=== PATIENT | male | born 1945 | race Caucasian/White ===

== ENCOUNTER → 2017-10-13 | Outpatient (CLI) | payer MEDICARE, MEDICAID ==
[~2017-10-13] MED LIST: AMLO5TAB2 PO; CLPD75T PO; EXEN10PE4 SQ; FURO20TA4 PO; GABA800T2 PO; LISI1TAB PO; LORA5SOL51 PO; MTF500T PO; PARO20TA57 PO; RT-COMBINH IH; SIMV40TA4 PO; SITA100T PO
--- NOTE | 2017-10-13 11:12 | Diagnostic Imaging Report ---
PROCEDURE: CT abdomen and pelvis without contrast. TECHNIQUE: Multiple contiguous axial images were obtained through the abdomen and pelvis without the use of intravenous contrast. INDICATION: Vomiting blood. COMPARISON: No prior studies are available for comparison. FINDINGS: Imaging through the lung bases does show marked coronary arterial calcifications. There is a cardiac pacemaker in place. A small right pleural effusion is noted. There are also abnormal bibasilar parenchymal densities, suggestive of mild pneumonia or atelectasis. No discrete liver mass is identified. The gallbladder is mildly distended. There are small stones layering within the gallbladder. No definite biliary ductal dilatation is seen. The pancreas and spleen are unremarkable. The right adrenal gland is unremarkable. There is a nodule involving the lateral limb of the left adrenal gland measuring 17 mm in size. Both kidneys do contain low-density masses. The largest is in the lower pole of the right kidney measuring 5.6 cm in AP diameter. Largest low-density mass on the left is in the upper pole measuring 2.3 cm in size. No calculi or hydronephrosis is identified. The aorta is heavily calcified but nonaneurysmal. The bladder is decompressed by Cervantes catheter. There is a large amount of stool within the rectum and sigmoid colon. Moderate distention of the sigmoid is identified. There is questionable wall thickening versus incomplete distention of the proximal ascending colon. There are some gaseous-distended small bowel loops in the central abdomen anteriorly. There is transition with normal-caliber small bowel loops distally. No free fluid or fluid collection is identified. There is no pneumoperitoneum. Imaging through the pelvis does show a decubitus ulcer in the midline just inferior to the coccyx. There is infiltration of the fat immediately posterior to the rectum. No definite sacral or coccygeal bony destructive changes are seen. There is soft tissue thickening superficial to the lower sacrum and coccyx. No fluid collection or abscess is identified. IMPRESSION: 1. Small right pleural effusion with bibasilar infiltrates or atelectasis. 2. Cholelithiasis. 3. Bilateral renal cysts. 4. Left adrenal nodule, indeterminate. Followup CT to confirm stability is recommended. 5. A large amount of stool in the rectum and distal colon, suggestive of constipation. 6. There is moderate gaseous distention of small bowel loops in the central abdomen with focal transition. Small bowel obstruction cannot be entirely excluded. Small bowel follow-through study may be useful for further evaluation. 7. Sacral decubitus ulcer without evidence of abscess formation. Dictated by: Dictated on workstation # [id number]
== END ==
LOC: RAD 09:46
PROVIDERS: ATTEND Registered Nurse
DX: J90 Pleural effusion, not elsewhere classified (principal); K80.20 Calculus of gallbladder without cholecystitis without obstruction; N28.1 Cyst of kidney, acquired; E27.8 Other specified disorders of adrenal gland; R14.0 Abdominal distension (gaseous); L89.159 Pressure ulcer of sacral region, unspecified stage; R33.9 Retention of urine, unspecified
CPT/HCPCS: 74176

== ENCOUNTER 2017-11-18 07:48 | Inpatient (IN) | payer MEDICARE, MEDICAID ==
[2017-11-18] VITALS (18 sets, daily range): BP systolic 100–155; BP diastolic 40–69
[~2017-11-18] VITALS: Ht 195.6 cm; Wt 105.5 kg
--- OUTSIDE RECORDS SUMMARY | 2017-11-18 07:52 | XMS REPORT | CCD ---
Author Author CHRISTIANO MCNEAL Organization Unknown Address [address] [facility] [address] [place], [place] [id number] Care Team Providers Care Geothermal Operations Manager Name Role Phone JULIENNE OBRIEN, W ARABELLA Attphys Vital Signs Unknown or Not Available. Allergies Allergy Code Allergy Type Reaction Status PCN (penicillin) 0 Drug allergy Active Procedures Procedure Code Procedure Type Date Removal of permanent pacemaker pulse generator with replacement of pacemak 66427 CPT 08/17/2015 BEDSIDE GLUCOSE 12596572 SNOMED CT 08/17/2015 History of Immunizations Unknown or Not Available. Problems Problem Code Start Date Resolved Date Status CELLULITIS 181176009 05/26/2014 Active Results BEDSIDE GLUCOSE - Collect Date/Time: 08/17/2015 13:25 Test Name Code Test Result Test Units Test Ref Range GLUCOSE POCT 128 MG/DL L=70 H=100 Active Medications Medication Code Dose Units Frequency Route Modification Start Date/Time DOXYCYCLINE [VIBRAMYCIN] CAPSULE:100MG 2781518 100 MG X1 PO 08/17/2015 15:43 Medications Administered During Visit Unknown or Not Available. Encounters Encounter Diagnosis Diagnosis Code Start Date Encounter for checking and testing of cardiac pacemaker pulse generator [ battery] [id number] 08/17/2015 Social History Smoking Status Code Start Date End Date Current every day smoker [id number] Patient Decision Aids Patient Decision Aid PACEMAKER AND/OR CARDIO-DEFIBRILLATOR INSERTION; AFTER THE PROC Discharge Instructions You were admitted to [facility] on 08/17/2015 with a principal diagnosis of Encounter for checking and testing of cardiac pacemaker pulse generator [battery]. You had the following procedures done: REMV&REPLC PM GEN DUAL LEAD You were discharged from [facility] on 08/17/2015. Should you have any questions prior to discharge, please contact a member of your healthcare team. If you have left the hospital and have any questions, please contact your primary care physician. Chief Complaint and Reason For Visit Chief Complaint Date of Onset PACEMAKER BATTERY CHANGE Function Status Unknown or Not Available. Plan of Care Unknown or Not Available. Referral/Transition of Care Unknown or Not Available.
--- OUTSIDE RECORDS SUMMARY | 2017-11-18 07:53 | XMS REPORT ---
Author Author Elder Jane Organization [facility] Address [address] [facility] [address] [place], [place] [id number] Care Team Providers Care Cigar Maker Name Role Phone Elder Jane PCP Unavailable Allergies and Adverse Reactions Name Reaction Notes PENICILLINS Plan of Treatment Not available. Medications Active Name Start Date Estimated Completion Date SIG Comments Byetta Subcutaneous Pen Injector 5 mcg/0.02 mL inject 0.02 milliliter ( 5 mcg) by subcutaneous route 2 times per day before morning and evening meals Januvia Oral Tablet 100 mg take 1 tablet (100 mg) by oral route once daily Paroxetine HCl Oral Tablet 20 mg take 1 tablet (20 mg) by oral route once daily Combivent Inhalation Aerosol 18-103 mcg/Actuation inhale 2 puffs by inhalation route 4 times per day amlodipine 10 mg oral tablet take 1 tablet (10 mg) by oral route once daily Flonase Allergy Relief 50 mcg/actuation nasal spray,suspension spray 1 spray (50 mcg) in each nostril by intranasal route once daily Zyrtec 10 mg oral tablet take 1 tablet (10 mg) by oral route once daily gabapentin 100 mg oral capsule take 1 capsule by oral route 3 times a day glipizide 5 mg oral tablet take 1 tablet (5 mg) by oral route 2 times per day before meals simvastatin 40 mg oral tablet take 1 tablet (40 mg) by oral route once daily in the evening [place] 7.5-325 mg oral tablet take 1 tablet by oral route every 4 hours as needed for pain lisinopril-hydrochlorothiazide 10-12.5 mg oral tablet take 1 tablet by oral route once daily Name Start Date Expiration Date SIG Comments Gabapentin Oral Tablet 800 mg take 1 tablet (800 mg) by oral route 3 times per day Glyburide-Metformin Oral Tablet 5-500 mg take 2 tablets by oral route 2 times per day with meals Avandia Oral Tablet 4 mg take 1 tablet (4 mg) by oral route once daily Vytorin 10-40 Oral Tablet mg take 1 tablet by oral route once daily Plavix Oral Tablet 75 mg take 1 tablet (75 mg) by oral route once daily Lisinopril-Hydrochlorothiazide Oral Tablet 20-12.5 mg take 1 tablet by oral route once daily Ranitidine HCl Oral Capsule 300 mg take 1 capsule by oral route daily Amlodipine Oral Tablet 5 mg take 1 tablet (5 mg) by oral route once daily Problem List Description Status Onset Dyspepsia Active 12/29/2016 Colon cancer screening Active 12/29/2016 Rectus diastasis Active 12/29/2016 Ventral hernia Active 12/29/2016 Vital Signs Date Time BP-Sys(mm[Hg] BP-Lima(mm[Hg]) HR(bpm) RR(rpm) Temp WT HT HC BMI BSA BMI Percentile O2 Sat(%) 12/28/2016 1:33:00 PM 138 mmHg 67 mmHg 69 bpm 18 rpm 96.2 F 233 lbs 77 in 27.63 kg/m2 2.40 m2 06/16/2010 4:39:00 PM 144 mmHg 72 mmHg 64 bpm 16 rpm 98.7 F 256 lbs Social History Name Description Comments Alcohol Former used to drink liquor and beer daily, Quit August 14, 1978 Lives with friend girlfriend in a trailer Living with significant other x 5 years,pt has grown children GED Cigarette smoking Current - status unknown x 60 years 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 Results Summary Not available. History Of Immunizations Not available. History of Past Illness Name Date of Onset Comments acid reflux Back Pain Chronic kidney disease, unspecified Coronary Artery Disease depression Diabetes Mellitus, Type II With Neurological Manifestations, not stated as uncontrolled Chronic Obstructive Pulmonary Disease Hypertension Hypercholesterolemia Neuropathy Spondylosis, lumbar Jun 16 2010 4:39PM Spinal stenosis, lumbar region Jun 16 2010 4:39PM Muscle Spasm Jun 16 2010 4:39PM Ulcer, Chronic Right calf Peptic Ulcer Disease, Personal History of IBS (irritable bowel syndrome) Dyspepsia 12/29/2016 Colon cancer screening 12/29/2016 Rectus diastasis 12/29/2016 Ventral hernia 12/29/2016 Colon cancer screening Dec 28 2016 1:51PM Dyspepsia Dec 28 2016 1:51PM Rectus diastasis Dec 28 2016 1:51PM Ventral hernia Dec 28 2016 1:51PM Payers Insurance Name Company Name Plan Name Plan Number Policy Number Policy Group Number Start Date Medicare Part B Medicare Of [place] [id number] Thursday, 2005 [facility] [id number] N/A [place] Medical Assistance [facility] Medical Assistance Pro [id number] N/A History of Encounters Visit Date Visit Type Provider 12/28/2016 Office visit Elder Jane DO 11/07/2014 [facility] Magdy Harris MD 06/03/2014 [facility] Carlie Vasques MD 05/28/2014 [facility] Elder Jane DO 05/27/2014 [facility] Elder Jane DO 05/26/2014 [facility] Magdy Harris MD 06/24/2010 [facility] Feng Mims MD 06/16/2010 Office visit Feng Mims MD
--- OUTSIDE RECORDS SUMMARY | 2017-11-18 07:53 | XMS REPORT | Continuity of Care Document ---
Author Author [facility] Organization [facility] Address Unknown Phone Unavailable Allergies Active Description Code Type Severity Reaction Onset Reported/Identified Relationship to Patient Clinical Status Yes PCN (penicillin) [id number] CLASS N/A N/A Yes penicillins 3 Drug N/A N/A Yes Penicillins [id number] Drug Allergy Unknown N/A 05/11/2012 Medications There is no data. Problems Date Dx Coded Attending Type Code Diagnosis Diagnosed By 07/13/1204 Ot 250.00 DIAB CARRINGTON WO COMPL, TYPE II OR UNSPEC TY 07/13/1204 Ot 707.15 ULCER OF OTHER PART OF FOOT 06/15/2012 Ot 250.00 DIAB CARRINGTON WO COMPL, TYPE II OR UNSPEC TY 06/15/2012 Ot 707.15 ULCER OF OTHER PART OF FOOT 06/24/2012 Ot 876.0 OPEN WOUND OF BACK 06/24/2012 Ot E000.8 OTHER EXTERNAL CAUSE STATUS 06/24/2012 Ot E928.9 ACCIDENT NOS 06/24/2012 Ot V58.30 ENCOUNTER FOR CHANGE OR REMOVAL OF NONSU 07/18/2012 Ot 876.0 OPEN WOUND OF BACK 07/18/2012 Ot E000.8 OTHER EXTERNAL CAUSE STATUS 07/18/2012 Ot E928.9 ACCIDENT NOS 07/18/2012 Ot V58.30 ENCOUNTER FOR CHANGE OR REMOVAL OF NONSU 06/28/2016 N18.4 Chronic kidney disease, stage 4 (severe) ALEXUS LAURA I 07/27/2017 S E68244 Nicotine dependence, cigarettes, with other nicotine-induced disorders 07/27/2017 S O22456 Chronic venous hypertension (idiopathic) with ulcer of bilateral lower extremity 07/27/2017 P O06704 Pressure ulcer of sacral region, stage 4 07/27/2017 S O60875 Pressure ulcer of other site, stage 2 07/27/2017 S Y72992 Non-pressure chronic ulcer of right ankle with fat layer exposed 10/17/2017 ALISIA FERNANDEZ MARKETING FINANCIAL ANALYST Ot E27.8 OTHER SPECIFIED DISORDERS OF ADRENAL GLA 10/17/2017 ALISIA FERNANDEZ MARKETING FINANCIAL ANALYST Ot J90 PLEURAL EFFUSION, NOT ELSEWHERE CLASSIFI 10/17/2017 ALISIA FERNANDEZ MARKETING FINANCIAL ANALYST Ot K80.20 CALCULUS OF GALLBLADDER W/O CHOLECYSTITI 10/17/2017 ALISIA FERNANDEZ MARKETING FINANCIAL ANALYST Ot L89.159 PRESSURE ULCER OF SACRAL REGION, UNSPECI 10/17/2017 ALISIA FERNANDEZ MARKETING FINANCIAL ANALYST Ot N28.1 CYST OF KIDNEY, ACQUIRED 10/17/2017 ALISIA FERNANDEZ MARKETING FINANCIAL ANALYST Ot R14.0 ABDOMINAL DISTENSION (GASEOUS) 10/17/2017 ALISIA FERNANDEZ MARKETING FINANCIAL ANALYST Ot R33.9 RETENTION OF URINE, UNSPECIFIED 11/03/2017 ALISIA FERNANDEZ MARKETING FINANCIAL ANALYST Ot E27.8 OTHER SPECIFIED DISORDERS OF ADRENAL GLA 11/03/2017 ALISIA FERNANDEZ MARKETING FINANCIAL ANALYST Ot J90 PLEURAL EFFUSION, NOT ELSEWHERE CLASSIFI 11/03/2017 ALISIA FERNANDEZ MARKETING FINANCIAL ANALYST Ot K80.20 CALCULUS OF GALLBLADDER W/O CHOLECYSTITI 11/03/2017 ALISIA FERNANDEZ MARKETING FINANCIAL ANALYST Ot L89.159 PRESSURE ULCER OF SACRAL REGION, UNSPECI 11/03/2017 ALISIA FERNANDEZ MARKETING FINANCIAL ANALYST Ot N28.1 CYST OF KIDNEY, ACQUIRED 11/03/2017 ALISIA FERNANDEZ MARKETING FINANCIAL ANALYST Ot R14.0 ABDOMINAL DISTENSION (GASEOUS) 11/03/2017 ALISIA FERNANDEZ MARKETING FINANCIAL ANALYST Ot R33.9 RETENTION OF URINE, UNSPECIFIED 11/15/2017 ALISIA FERNANDEZ MARKETING FINANCIAL ANALYST Ot E27.8 OTHER SPECIFIED DISORDERS OF ADRENAL GLA 11/15/2017 ALISIA FERNANDEZ MARKETING FINANCIAL ANALYST Ot J90 PLEURAL EFFUSION, NOT ELSEWHERE CLASSIFI 11/15/2017 ALISIA FERNANDEZ MARKETING FINANCIAL ANALYST Ot K80.20 CALCULUS OF GALLBLADDER W/O CHOLECYSTITI 11/15/2017 ALISIA FERNANDEZ MARKETING FINANCIAL ANALYST Ot L89.159 PRESSURE ULCER OF SACRAL REGION, UNSPECI 11/15/2017 ALISIA FERNANDEZ MARKETING FINANCIAL ANALYST Ot N28.1 CYST OF KIDNEY, ACQUIRED 11/15/2017 ALISIA FERNANDEZ MARKETING FINANCIAL ANALYST Ot R14.0 ABDOMINAL DISTENSION (GASEOUS) 11/15/2017 ALISIA FERNANDEZ MARKETING FINANCIAL ANALYST Ot R33.9 RETENTION OF URINE, UNSPECIFIED Procedures Code [place] [address] Office or other outpatient visit for the evaluation and management of a new patient, which requires ALEXUS LAURA I 06/28/2016 Results There is no data. Encounters ACCT No. Visit Date/Time Discharge Status Pt. Type Provider Facility Loc./Unit Complaint [id number] 06/22/2017 09:39:07 06/22/2017 23:59:59 CLS Outpatient Magdy Harris [id number] 12/28/2016 11:03:17 12/28/2016 23:59:59 CLS Outpatient Elder Jane [id number] 03/23/2015 22:06:00 03/23/2015 23:59:59 CLS Outpatient Magdy Harris [id number] 08/17/2014 18:33:51 08/17/2014 23:59:59 CLS Outpatient Magdy Harris [id number] 06/16/2014 12:15:27 06/16/2014 23:59:59 CLS Outpatient Carlie Vasques [id number] 06/16/2014 12:05:57 06/16/2014 23:59:59 CLS Outpatient Elder Jane [id number] 05/28/2014 10:15:40 05/28/2014 23:59:59 CLS Outpatient Elder Jane [id number] 10/13/2017 09:46:00 10/13/2017 23:59:59 CLS Outpatient ALISIA FERNANDEZ APRN [facility] RAD 6 MO F/U [id number] 11/18/2017 07:49:00 ACT Emergency YOLA ZAMORA MD [facility] ER RESPIRATORY FAILURE [id number] 07/18/2012 10:30:00 Document Registration [id number] 06/22/2012 11:55:00 Document Registration [id number] 06/15/2012 11:45:00 Document Registration [id number] 11/15/2017 08:47:22 Document Registration [id number] 11/08/2017 10:05:20 Document Registration [id number] 10/31/2017 08:43:38 Document Registration [id number] 10/17/2017 09:03:12 Document Registration [id number] 10/02/2017 09:40:16 Document Registration [id number] 09/25/2017 09:30:30 Document Registration [id number] 09/19/2017 09:06:04 Document Registration [id number] 09/11/2017 09:21:03 Document Registration [id number] 08/29/2017 10:32:35 Document Registration [id number] 08/21/2017 09:32:38 Document Registration [id number] 08/10/2017 10:19:01 Document Registration [id number] 08/08/2017 11:18:21 Document Registration [id number] 07/26/2017 08:57:43 Document Registration [id number] 07/17/2017 10:14:40 Document Registration [id number] 06/29/2017 15:08:16 Document Registration [id number] 06/29/2017 15:02:40 Document Registration [id number] 06/15/2017 11:41:11 Document Registration [id number] 06/09/2017 10:32:42 Document Registration [id number] 06/07/2017 08:50:33 Document Registration [id number] 06/01/2017 11:51:47 Document Registration [id number] 05/25/2017 10:57:54 Document Registration [id number] 05/24/2017 09:13:38 Document Registration [id number] 05/18/2017 11:10:48 Document Registration [id number] 05/16/2017 09:04:49 Document Registration [id number] 05/11/2017 08:52:19 Document Registration [id number] 04/16/2017 09:58:17 Document Registration [id number] 04/10/2017 21:33:41 Document Registration [id number] 04/10/2017 11:48:56 Document Registration [id number] 04/06/2017 09:05:08 Document Registration [id number] 04/04/2017 22:41:46 Document Registration [id number] 03/30/2017 19:13:52 Document Registration [id number] 03/30/2017 19:03:38 Document Registration [id number] 03/30/2017 18:54:41 Document Registration [id number] 03/30/2017 18:54:40 Document Registration [id number] 03/30/2017 18:54:39 Document Registration [id number] 03/30/2017 18:54:32 Document Registration [id number] 03/30/2017 10:31:21 Document Registration [id number] 06/23/2016 08:18:15 Document Registration [id number] 10/24/2017 11:16:01 10/24/2017 23:59:59 DIS Outpatient JIM ALISIA D [facility] [id number] 10/24/2017 10:48:40 10/24/2017 23:59:59 DIS Outpatient ALISIA FERNANDEZ [facility] [id number] 07/10/2017 11:37:30 07/10/2017 23:59:59 DIS Outpatient ALISIA FERNANDEZ [facility] [id number] 07/10/2017 10:30:00 07/10/2017 23:59:59 DIS Outpatient ALISIA FERNANDEZ [facility] [id number] 05/08/2017 10:00:00 05/08/2017 23:59:59 DIS Outpatient ALISIA FERNANDEZ [facility] [id number] 04/10/2017 11:21:00 04/10/2017 23:59:59 DIS Outpatient JOSE GOMEZ [facility] [id number] 04/04/2017 10:00:00 04/04/2017 23:59:59 DIS Outpatient [facility] [id number] 03/30/2017 23:00:00 03/30/2017 23:59:59 DIS Outpatient JOSE GOMEZ [facility] [id number] 03/30/2017 13:58:24 03/30/2017 23:59:59 DIS Outpatient ALISIA FERNANDEZ [facility] [id number] 03/30/2017 08:33:09 03/30/2017 23:59:59 DIS Outpatient ALISIA FERNANDEZ [facility] [id number] 03/29/2017 14:43:40 03/29/2017 23:59:59 DIS Outpatient ALISIA FERNANDEZ [facility] [id number] 03/29/2017 14:30:00 03/29/2017 23:59:59 DIS Outpatient ALISIA FERNANDEZ [facility] [id number] 03/28/2017 14:22:51 03/28/2017 23:59:59 DIS Outpatient JIM ALISIA D [facility] [id number] 03/28/2017 14:15:00 03/28/2017 23:59:59 DIS Outpatient ALISIA FERNANDEZ [facility] [id number] 03/24/2017 12:28:31 03/24/2017 23:59:59 DIS Outpatient ALISIA FERNANDEZ [facility] [id number] 03/22/2017 09:09:27 03/22/2017 23:59:59 DIS Outpatient ALISIA FERNANDEZ [facility] [id number] 03/22/2017 09:06:44 03/22/2017 23:59:59 DIS Outpatient ALISIA FERNANDEZ [facility] [id number] 03/21/2017 10:43:28 03/21/2017 23:59:59 DIS Outpatient ALISIA EFRNANDEZ [facility] [id number] 03/13/2017 08:09:54 03/13/2017 23:59:59 DIS Outpatient ALISIA FERNANDEZ [facility] [id number] 03/13/2017 08:05:46 03/13/2017 23:59:59 DIS Outpatient ALISIA FERNANDEZ [facility] [id number] 03/09/2017 14:15:00 03/09/2017 23:59:59 DIS Outpatient ALISIA FERNANDEZ [facility] [id number] 03/08/2017 10:30:00 03/08/2017 23:59:59 DIS Outpatient ALISIA FERNANDEZ [facility] [id number] 05/26/2014 00:00:00 05/26/2014 00:00:00 DIS Outpatient [facility] [id number] 10/13/2017 02:00:47 Document Registration [id number] 03/10/2017 02:00:24 Document Registration [id number] 12/06/2016 08:29:44 Document Registration [id number] 12/05/2016 02:01:42 Document Registration [id number] 12/03/2016 02:04:37 Document Registration [id number] 10/31/2016 09:27:45 Document Registration [id number] 10/28/2016 02:02:07 Document Registration [id number] 10/01/2016 02:01:20 Document Registration [id number] 08/30/2016 09:57:43 Document Registration
[2017-11-18] MEDS ORDERED: RT-IPRATROPIUM (ATROVENT) 0.5MG/2.5ML AMP IH ONE ×2 (07:55→08:00)
[2017-11-18] MEDS ORDERED: RT-ALBUTEROL SULF 2.5 MG/3 ML PRE-MIX VIAL ONE (07:55)
[2017-11-18] MEDS ORDERED: RT-ALBUTEROL SULF 2.5 MG/3 ML PRE-MIX VIAL INH STA (07:57)
[2017-11-18] MEDS ORDERED: methylPREDNISolone 125 MG (Solu-MEDROL) VIAL IVP ONE (08:00)
[2017-11-18 08:09] LABS: BILIRUBIN,URINE NEGATIVE (NEGATIVE); CLARITY,URINE CLEAR; COLOR,URINE YELLOW; GLUCOSE, URINE (UA) NEGATIVE (NEGATIVE); KETONES,URINE NEGATIVE (NEGATIVE); LEUKOCYTE ESTERASE ,URINE 3+ (NEGATIVE); NITRITE,URINE NEGATIVE (NEGATIVE); PH,URINE 6 (5-9); PROTEIN,URINE 3+ (NEGATIVE); UROBILINOGEN,URINE NORMAL (NORMAL)
[2017-11-18 08:09] LABS: BASOPHILS # (AUTO) 0.1 10^3/uL (0.0-0.1); BASOPHILS % (AUTO) 0 % (0-10); EOSINOPHILS # (AUTO) 0.2 10^3/uL (0.0-0.3); EOSINOPHILS % (AUTO) 1 % (0-10); HEMATOCRIT 38 % (40-54); HEMOGLOBIN 12.2 G/DL (13.3-17.7); LYMPHOCYTES # (AUTO) 2.5 X 10^3 (1.0-4.0); LYMPHOCYTES % (AUTO) 15 % (12-44); MEAN CORPUSCULAR HEMOGLOBIN 27 PG (25-34); MEAN CORPUSCULAR HGB CONC 33 G/DL (32-36); MEAN CORPUSCULAR VOLUME 82 FL (80-99); MEAN PLATELET VOLUME 8.6 FL (7.4-10.4); MONOCYTES % (AUTO) 6 % (0-12); NEUTROPHILS # (AUTO) 12.5 X 10^3 (1.8-7.8); NEUTROPHILS % (AUTO) 77 % (42-75); PLATELET COUNT 184 10^3/uL (130-400); RED CELL DISTRIBUTION WIDTH 16.1 % (10.0-14.5); WHITE BLOOD COUNT 16.2 10^3/uL (4.3-11.0)
[2017-11-18] MEDS ORDERED: LEVOFLOXACIN 750 MG/150 ML IV 150 ML IV ONE (08:15)
[2017-11-18 08:20] LABS: BAND NEUTROPHILS 1 %; EOSINOPHILS % (MANUAL) 5 %; LYMPHOCYTES % (MANUAL) 21 %; MONOCYTES % (MANUAL) 9 %; NEUTROPHILS % (MANUAL) 64 %
[2017-11-18 08:21] LABS: RBC MORPH NORMAL
[2017-11-18 08:22] LABS: INR 1.1 (0.8-1.4); PROTHROMBIN TIME PATIENT 14.3 SEC (12.2-14.7)
[2017-11-18 08:24] LABS: BACTERIA,URINE LARGE /HPF; WBC,URINE TNTC /HPF
[2017-11-18 08:28] LABS: ALBUMIN 3.3 GM/DL (3.2-4.5); BILIRUBIN,TOTAL 0.5 MG/DL (0.1-1.0); CALCIUM 8.6 MG/DL (8.5-10.1); CREATININE SERUM 2.36 MG/DL (0.60-1.30); POTASSIUM 4.1 MMOL/L (3.6-5.0); TOTAL PROTEIN 6.8 GM/DL (6.4-8.2)
[2017-11-18] MEDS ORDERED: NS IV 1000 ML 1,000 ML IV ONE (08:30)
--- NOTE | 2017-11-18 08:45 | ED General ---
General Chief Complaint: Respiratory Problems Stated Complaint: RESPIRATORY FAILURE Nursing Triage Note: ARRIVED VIA EMS FROM [facility]. STAFF REPORTS FINDING PT IN SEVERE RESP DISTRESS ET SATS IN THE 60'S WITH 2LNC ON. EMS REPORTS PLACING HIM ON CPAP AND SATS INCREASED TO THE 90'S. BLOOD SUGAR 166 PER EMS. PT ARRIVED WITH C- PAP ON, IV, ET INDWELLING CATH. BOTH LEGS WITH DRESSINGS AND COBAN ET EMS STATES HE HAS ULCERS UNDERNEATH. Nursing Sepsis Screen: No Definite Risk Source of Information: Patient, EMS, [facility] Records, Old Records History of Present Illness Date Seen by Provider: Nov 18, 2017 Time Seen by Provider: 07:49 Initial Comments This 72-year-old gentleman presents to the emergency room in respiratory failure. He was found in respiratory distress this morning at the [facility] with oxygen saturations in the 60s and 70s on nasal cannula. He arrives via EMS. EMS was able to resuscitate his oxygen saturations with CPAP. Patient does have COPD. He continues to smoke. He is dependent on supplemental oxygen. He also is diabetic and paraplegic. He receives wound care for lower extremity ulcers in [place]. He has compressive wrappings on both legs. He is afebrile. He has a documented CODE STATUS of DNR /DNI. He complains of some pain in the suprapubic region. He has an indwelling catheter. He reports having some diarrhea yesterday. Allergies and Home Medications Allergies Coded Allergies: Penicillins (Unverified Allergy, Unknown, 05/11/12) Patient Home Medication List Home Medication List Reviewed: Yes Review of Systems Constitutional: no symptoms reported EENTM: no symptoms reported Respiratory: see HPI Cardiovascular: no symptoms reported Gastrointestinal: see HPI Genitourinary: see HPI Musculoskeletal: see HPI Skin: see HPI Psychiatric/Neurological: See HPI Hematologic/Lymphatic: No Symptoms Reported Immunological/Allergic: no symptoms reported Past Brjficq-Gixsim-Oqigyv Hx Patient Social History Alcohol Use: Denies Use Recreational Drug Use: No Smoking Status: Current Everyday Smoker Recent Foreign Travel: No Contact w/Someone Who Travel: No Recent Infectious Disease Expo: No Past Medical History Surgeries: Yes Amputation (right first and second toe) Respiratory: Yes Pneumonia, COPD Cardiac: Yes Hypertension Neurological: Yes (paraplegia) Genitourinary: Yes (CHRONIC KIDNEY DZ) Renal Failure, UTI-Chronic Gastrointestinal: Yes Chronic Constipation Musculoskeletal: No Endocrine: Yes Diabetes, Insulin dep HEENT: No Cancer: No Psychosocial: No Integumentary: Yes (WOUNDS, bilateral decubitus ulcers of lower extremities) Recent Skin Changes Physical Exam-Suspected Sepsis Physical Exam Vital Signs Vital Signs - First Documented 11/18/17 11/18/17 11/18/17 07:54 08:23 08:47 Temp 96.8 Pulse 87 Resp 16 B/P (MAP) 139/71 (93) Pulse Ox 96 O2 Delivery NIV/CPAP O2 Flow Rate 55.00 FiO2 50 Capillary Refill : Less Than 3 Seconds Blood Pressure Mean: 93 General Appearance: WD/WN, Moderate Distress (respiratory) HEENT: PERRL/EOMI, Normal ENT Inspection Neck: Normal Inspection Respiratory: Accessory Muscle Use, Rhonci (coarse and wet sounding), Other ( increased work of breathing) Cardiovascular: Regular Rate, Rhythm, No Murmur, Other (bilateral lower extremity edema, left greater than right, sinus rhythm on the monitor) Gastrointestinal: Soft, No Distended, Tenderness (suprapubic) Extremity: Pedal Edema, Other (shallow decubitus ulcers on the right lower leg) Neurologic/Psychiatric: Alert, Oriented x3, Normal Mood/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, 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 Norm as Tested, Other (paraplegia from back injury) Skin: normal color, warm/dry Focused Exam Sepsis Stage: Severe Sepsis Possible Source: Genitouriary Lactate Level 11/18/17 07:55: Lactic Acid Level 1.61 Time of Focused Exam: 09:20 Respiratory: No Accessory Muscle Use, Crackles, Rhonci, Wheezing, Other (On BiPAP) Cardiovascular: Regular Rate, Rhythm (heart sounds distant), No Murmur Capillary Refill: Less Than 3 Seconds Skin: normal color, warm/dry Lactic Acid Level Laboratory Tests Test 11/18/17 07:55 Lactic Acid Level 1.61 MMOL/L (0.50-2.00) Progress/Results/Core Measures Suspected Sepsis Recent Fever Within 48 Hours: No Infection Criteria Present: Suspected New Infection New/Unexplained Altered Menta: No Sepsis Screen: No Definite Risk Sepsis Diagnosis: SIRS Temperature:96.8 Pulse: 84 Respiratory Rate: 25 Laboratory Tests 11/18/17 07:55: White Blood Count 16.2H Blood Pressure 139 /71 Mean: 93 11/18/17 07:55: Lactic Acid Level 1.61 Laboratory Tests 11/18/17 07:55: Creatinine 2.36H, INR Comment 1.1, Platelet Count 184, Total Bilirubin 0.5 Results/Orders Lab Results Laboratory Tests Test 11/18/17 07:55 11/18/17 08:00 Range/Units White Blood Count 16.2 H 4.3-11.0 10^3/uL Red Blood Count 4.60 4.35-5.85 10^6/uL Hemoglobin 12.2 L 13.3-17.7 G/DL Hematocrit 38 L 40-54 % Mean Corpuscular Volume 82 80-99 FL Mean Corpuscular Hemoglobin 27 25-34 PG Mean Corpuscular Hemoglobin Concent 33 32-36 G/DL Red Cell Distribution Width 16.1 H 10.0-14.5 % Platelet Count 184 130-400 10^3/uL Mean Platelet Volume 8.6 7.4-10.4 FL Neutrophils (%) (Auto) 77 H 42-75 % Lymphocytes (%) (Auto) 15 12-44 % Monocytes (%) (Auto) 6 0-12 % Eosinophils (%) (Auto) 1 0-10 % Basophils (%) (Auto) 0 0-10 % Neutrophils # (Auto) 12.5 H 1.8-7.8 X 10^3 Lymphocytes # (Auto) 2.5 1.0-4.0 X 10^3 Monocytes # (Auto) 1.0 0.0-1.0 X 10^3 Eosinophils # (Auto) 0.2 0.0-0.3 10^3/uL Basophils # (Auto) 0.1 0.0-0.1 10^3/uL Neutrophils % (Manual) 64 % Lymphocytes % (Manual) 21 % Monocytes % (Manual) 9 % Eosinophils % (Manual) 5 % Band Neutrophils 1 % Blood Morphology Comment NORMAL Prothrombin Time 14.3 12.2-14.7 SEC INR Comment 1.1 0.8-1.4 Activated Partial Thromboplast Time 33 24-35 SEC Sodium Level 139 135-145 MMOL/L Potassium Level 4.1 3.6-5.0 MMOL/L Chloride Level 105 98-107 MMOL/L Carbon Dioxide Level 23 21-32 MMOL/L Anion Gap 11 5-14 MMOL/L Blood Urea Nitrogen 40 H 7-18 MG/DL Creatinine 2.36 H 0.60-1.30 MG/DL Estimat Glomerular Filtration Rate 27 BUN/Creatinine Ratio 17 Glucose Level 178 H 70-105 MG/DL Lactic Acid Level 1.61 0.50-2.00 MMOL/L Calcium Level 8.6 8.5-10.1 MG/DL Total Bilirubin 0.5 0.1-1.0 MG/DL Aspartate Amino Transf (AST/SGOT) 11 5-34 U/L Alanine Aminotransferase (ALT/SGPT) 7 0-55 U/L Alkaline Phosphatase 65 40-136 U/L C-Reactive Protein High Sensitivity 3.74 H 0.00-0.50 MG/DL B-Type Natriuretic Peptide 1001.0 H <100.0 PG/ML Total Protein 6.8 6.4-8.2 GM/DL Albumin 3.3 3.2-4.5 GM/DL Urine Color YELLOW Urine Clarity CLEAR Urine pH 6 5-9 Urine Specific Trout 1.015 L 1.016-1.022 Urine Protein 3+ H NEGATIVE Urine Glucose (UA) NEGATIVE NEGATIVE Urine Ketones NEGATIVE NEGATIVE Urine Nitrite NEGATIVE NEGATIVE Urine Bilirubin NEGATIVE NEGATIVE Urine Urobilinogen NORMAL NORMAL MG/DL Urine Leukocyte Esterase 3+ H NEGATIVE Urine RBC (Auto) 3+ H NEGATIVE Urine RBC NONE /HPF Urine WBC TNTC H /HPF Urine Crystals NONE /LPF Urine Bacteria LARGE H /HPF Urine Casts NONE /LPF Urine Mucus NEGATIVE /LPF Urine Culture Indicated YES Micro Results Microbiology 11/18/17 Influenza Types A,B Antigen (TIAGO) - Final, Complete My Orders Orders - YOLA ZAMORA MD Albuterol Pre-Mix Nebs (Rt) (Proventil (11/18/17 07:57) Ipratropium 0.02% Neb Solution (Atrovent (11/18/17 08:00) Svn Sm Volume Nebulizer Rt-Rfs (11/18/17 07:57) Svn Sm Volume Nebulizer Rt-Rfs (11/18/17 07:57) Cbc With Automated Diff (11/18/17 07:58) Comprehensive Metabolic Panel (11/18/17 07:58) Lactic Acid Analyzer (11/18/17 07:58) Blood Culture (11/18/17 07:58) Sputum Culture (11/18/17 07:58) Ua Culture If Indicated (11/18/17 07:58) Protime With Inr (11/18/17 07:58) Partial Thromboplastin Time (11/18/17 07:58) Chest 1 View, Ap/Pa Only (11/18/17 07:58) O2 (11/18/17 07:58) Saline Lock/Iv-Start (11/18/17 07:58) Saline Lock/Iv-Start (11/18/17 07:58) Vital Signs Adult Sepsis Patie Q1H (11/18/17 07:58) Remove Rings In Anticipation O (11/18/17 07:58) Influenza A And B Antigens (11/18/17 07:58) BNP (11/18/17 07:58) Hs C Reactive Protein (11/18/17 07:58) Methylprednisolone Sod Succ (Solu-Medrol (11/18/17 08:00) Ipratropium 0.02% Neb Solution (Atrovent (11/18/17 07:55) Albuterol Pre-Mix Nebs (Rt) (Proventil (11/18/17 07:55) Manual Differential (11/18/17 07:55) Levofloxacin 750 Mg/150 Ml Iv (Levaquin (11/18/17 08:15) Urine Culture (11/18/17 08:00) Wound Culture (11/18/17 08:25) Saline Lock/Iv-Start (11/18/17 08:30) Ns Iv 1000 Ml (Sodium Chloride 0.9%) (11/18/17 08:30) Medications Given in ED Current Medications Medications Dose Ordered Sig/Wendy Route Start Time Stop Time Status Last Admin Dose Admin Ipratropium Eastern 0.5 mg ONCE ONCE IH 11/18/17 08:00 11/18/17 08:01 DC 11/18/17 08:12 0.5 MG Levofloxacin/ Dextrose 150 ml @ 100 mls/hr ONCE ONCE IV 11/18/17 08:15 11/18/17 09:44 DC 11/18/17 08:32 100 MLS/HR Methylprednisolone Sodium Succinate 125 mg ONCE ONCE IVP 11/18/17 08:00 11/18/17 08:01 DC 11/18/17 08:31 125 MG Sodium Chloride 1,000 ml @ 0 mls/hr Q0M ONCE IV 11/18/17 08:30 11/18/17 08:31 DC 11/18/17 08:35 1,000 MLS/HR Vital Signs/I&O 11/18/17 11/18/17 11/18/17 11/18/17 07:54 08:13 08:23 08:47 Temp 96.8 Pulse 87 84 Resp 16 25 B/P (MAP) 139/71 (93) Pulse Ox 96 91 89 O2 Delivery NIV/CPAP O2 Flow Rate 55.00 FiO2 50 11/18/17 08:48 Pulse Ox 91 O2 Flow Rate 60.00 Capillary Refill : Less Than 3 Seconds Blood Pressure Mean: 93 Progress Note : Time: 09:08 Progress Note Sepsis workup was pursued. Patient was continued on BiPAP and settings were adjusted as needed. Solu-Medrol 125 mg IV was administered. Blood cultures and lactic acid were drawn. Levaquin was started as initial antibiotic therapy. Patient was found to have probable pneumonia as well as urinary tract infection. He has renal failure of unknown chronicity. No prior labs are available for comparison and no prior x-ray for comparison. Patient meets severe sepsis criteria because of his respiratory and renal failure. However, he is not hypotensive. Because of borderline vascular congestion on the chest x -ray and elevated BNP, only 1 L of IV fluids was administered in the ER. Further fluid administration will be based on attendings assessment. For patient's ideal body weight 2 L would equal 30 ML per kilogram. The severe sepsis order set will be used for admission. Antibiotic selection will be adjusted based on a penicillin allergy. Meropenem will be substituted for cefepime. Lower extremity dressings were left off for ICU assessment. Influenza screen was negative. Case was reviewed with Dr. Lord who agrees with plan. I did make patient aware that he is extremely ill. I offered to call friends or family for him but he declined. Diagnostic Imaging Diagonstic Imaging: Xray Plain Films/CT/US/NM/MRI: chest Comments Chest x-ray reviewed by me and report reviewed. See report below: NAME: LORENZO ARREDONDO MED REC#: [id number] PT STATUS: REG ER : 1945 PHYSICIAN: YOLA ZAMORA MD ADMIT DATE: 11/18/17/ER Draft Date of Exam:11/18/17 CHEST 1 VIEW, AP/PA ONLY INDICATION: Respiratory distress. TECHNIQUE: Single view chest 8:25 AM. CORRELATION STUDY: None FINDINGS: Right-sided pacemaker stable. Heart size borderline enlarged. Vasculature is increased. There are coarse bilateral pulmonary lung markings. IMPRESSION: 1. Cardiac enlargement with borderline vascular congestion. 2. Scattered pulmonary parenchymal densities are noted. It is indeterminate whether some of these are chronic versus more superimposed areas of infiltrate and/or edema. Would recommend short-term followup two-view chest imaging for reassessment. Dictated on workstation # [id number] Dict: 11/18/17 0839 Trans: 11/18/17 0849 [facility] [id number] Interpreted by: RAHUL DIEGO DO Departure Communication (Admissions) Time/Spoke to Admitting Phy: 09:00 Dr. Lord Impression Primary Impression: Severe sepsis Additional Impressions: Respiratory failure Qualified Codes: J96.01 - Acute respiratory failure with hypoxia Pneumonia Qualified Codes: J18.9 - Pneumonia, unspecified organism Urinary tract infection Qualified Codes: N39.0 - Urinary tract infection, site not specified Renal failure Qualified Codes: N19 - Unspecified kidney failure Decubitus ulcer of right leg COPD exacerbation Disposition: ADMITTED INPATIENT Condition: Improved Admissions Decision to Admit Reason: Admit from ER (General) Decision to Admit/Date: Nov 18, 2017 Time/Decision to Admit Time: 07:50 Departure-Patient Inst. Referrals: ANDREW NICHOLAS DO (PCP/Family) Primary Care Physician YOLA ZAMORA MD Nov 18, 2017 08:45
--- NOTE | 2017-11-18 08:50 | Diagnostic Imaging Report ---
INDICATION: Respiratory distress. TECHNIQUE: Single view chest 8:25 AM. CORRELATION STUDY: None FINDINGS: Right-sided pacemaker stable. Heart size borderline enlarged. Vasculature is increased. There are coarse bilateral pulmonary lung markings. IMPRESSION: 1. Cardiac enlargement with borderline vascular congestion. 2. Scattered pulmonary parenchymal densities are noted. It is indeterminate whether some of these are chronic versus more superimposed areas of infiltrate and/or edema. Would recommend short-term followup two-view chest imaging for reassessment. Dictated by: Dictated on workstation # [id number]
--- OUTSIDE RECORDS SUMMARY | 2017-11-18 09:20 | XMS REPORT | Continuity of Care Document ---
Author Author [facility] Organization [facility] Address Unknown Phone Unavailable Allergies Active Description Code Type Severity Reaction Onset Reported/Identified Relationship to Patient Clinical Status Yes PCN (penicillin) 37053801 CLASS N/A N/A Yes penicillins 3 Drug N/A N/A Yes Penicillins [id number] Drug Allergy Unknown N/A 05/11/2012 Medications There [...] 4 (severe) ALEXUS LAURA I 07/27/2017 S [id number] Nicotine dependence, cigarettes, with other nicotine-induced disorders 07/27/2017 S H16960 Chronic venous hypertension (idiopathic) with ulcer of bilateral lower extremity 07/27/2017 P [id number] Pressure ulcer of sacral region, stage 4 07/27/2017 S S37117 Pressure ulcer of other site, stage 2 07/27/2017 S [id number] Non-pressure chronic ulcer of right ankle with fat layer exposed 10/17/2017 ALISIA FERNANDEZ [employer] SUPER[employer] Ot E27.8 OTHER SPECIFIED DISORDERS OF ADRENAL GLA 10/17/2017 ALISIA FERNANDEZ [employer] SUPERVIS[employer] Ot J90 PLEURAL EFFUSION, NOT ELSEWHERE CLASSIFI 10/17/2017 ALISIA FERNANDEZ [employer] SUPERVIS[employer] Ot K80.20 CALCULUS OF GALLBLADDER W/O CHOLECYSTITI 10/17/2017 ALISIA FERNANDEZ [employer] SUPERVISOR Ot L89.159 PRESSURE ULCER OF SACRAL REGION, UNSPECI 10/17/2017 ALISIA FERNANDEZ [employer] SUPERVISOR Ot N28.1 CYST OF KIDNEY, ACQUIRED 10/17/2017 ALISIA FERNANDEZ [employer] SUPERVISOR Ot R14.0 ABDOMINAL DISTENSION (GASEOUS) 10/17/2017 ALISIA FERNANDEZ [employer] SUPERVISOR Ot R33.9 RETENTION OF URINE, UNSPECIFIED 11/03/2017 ALISIA FERNANDEZ [employer] SUPERVISOR Ot E27.8 OTHER SPECIFIED DISORDERS OF ADRENAL GLA 11/03/2017 ALISIA FERNANDEZ [employer] SUPERVISOR Ot J90 PLEURAL EFFUSION, NOT ELSEWHERE CLASSIFI 11/03/2017 ALISIA FERNANDEZ [employer] SUPERVISOR Ot K80.20 CALCULUS OF GALLBLADDER W/O CHOLECYSTITI 11/03/2017 ALISIA FERNANDEZ [employer] SUPERVISOR Ot L89.159 PRESSURE ULCER OF SACRAL REGION, UNSPECI 11/03/2017 ALISIA FERNANDEZ [employer] SUPERVISOR Ot N28.1 CYST OF KIDNEY, ACQUIRED 11/03/2017 ALISIA FERNANDEZ MAGAZ[employer] SUPERVISOR Ot R14.0 ABDOMINAL DISTENSION (GASEOUS) 11/03/2017 ALISIA FERNANDEZ [employer] SUPERVISOR Ot R33.9 RETENTION OF URINE, UNSPECIFIED 11/15/2017 ALISIA FERNANDEZ [employer] SUPERVISOR Ot E27.8 OTHER SPECIFIED DISORDERS OF ADRENAL GLA 11/15/2017 ALISIA FERNANDEZ MAG[employer] SUPERVISOR Ot J90 PLEURAL EFFUSION, NOT ELSEWHERE CLASSIFI 11/15/2017 ALISIA FERNANDEZ MAGAZ[employer] SUPERVISOR Ot K80.20 CALCULUS OF GALLBLADDER W/O CHOLECYSTITI 11/15/2017 ALISIA FERNANDEZ MAGAZ[employer] SUPERVISOR Ot L89.159 PRESSURE ULCER OF SACRAL REGION, UNSPECI 11/15/2017 ALISIA FERNANDEZ MAGAZ[employer] SUPERVISOR Ot N28.1 CYST OF KIDNEY, ACQUIRED 11/15/2017 ALISIA FERNANDEZ MAGAZINE SUPERVISOR Ot R14.0 ABDOMINAL DISTENSION (GASEOUS) 11/15/2017 ALISIA FERNANDEZ [employer] SUPERVISOR Ot R33.9 RETENTION OF URINE, UNSPECIFIED Procedures Code Description [place] [address] Office or other outpatient visit for the evaluation and management of a new patient, which requires ALEXUS LAURA I 06/28/2016 Results Test Result Range Complete blood count (CBC) with automated white blood cell (WBC) differential - 11/18/17 07:55 Blood leukocytes automated count (number/volume) 16.2 10*3/uL 4.3-11.0 Blood erythrocytes automated count (number/volume) 4.60 10*6/uL 4.35-5.85 Venous blood hemoglobin measurement (mass/volume) 12.2 g/dL 13.3-17.7 Blood hematocrit (volume fraction) 38 % 40-54 Automated erythrocyte mean corpuscular volume 82 [foz_us] 80-99 Automated erythrocyte mean corpuscular hemoglobin (mass per erythrocyte) 27 pg 25-34 Automated erythrocyte mean corpuscular hemoglobin concentration measurement ( mass/volume) 33 g/dL 32-36 Automated erythrocyte distribution width ratio 16.1 % 10.0-14.5 Automated blood platelet count (count/volume) 184 10*3/uL 130-400 Automated blood platelet mean volume measurement 8.6 [foz_us] 7.4-10.4 Automated blood neutrophils/100 leukocytes 77 % 42-75 Automated blood lymphocytes/100 leukocytes 15 % 12-44 Blood monocytes/100 leukocytes 6 % 0-12 Automated blood eosinophils/100 leukocytes 1 % 0-10 Automated blood basophils/100 leukocytes 0 % 0-10 Blood neutrophils automated count (number/volume) 12.5 10*3 1.8-7.8 Blood lymphocytes automated count (number/volume) 2.5 10*3 1.0-4.0 Blood monocytes automated count (number/volume) 1.0 10*3 0.0-1.0 Automated eosinophil count 0.2 10*3/uL 0.0-0.3 Automated blood basophil count (count/volume) 0.1 10*3/uL 0.0-0.1 Blood lactic acid measurement (moles/volume) - 11/18/17 07:55 Blood lactic acid measurement (moles/volume) 1.61 mmol/L 0.50-2.00 Blood manual differential performed detection - 11/18/17 07:55 Blood monocytes/100 leukocytes 9 % NRG Manual blood segmented neutrophils/100 leukocytes 64 % NRG Blood band neutrophils/100 leukocytes 1 % NRG Manual blood lymphocytes/100 leukocytes 21 % NR Manual eosinophils/100 leukocytes in nose 5 % NR Blood erythrocyte morphology finding identification NORMAL [facility] PT panel in platelet poor plasma by coagulation assay - 11/18/17 07:55 Prothrombin time (PT) in platelet poor plasma by coagulation assay 14.3 s 12.2-14.7 INR in platelet poor plasma or blood by coagulation assay 1.1 0.8-1.4 Activated partial thromboplastin time (aPTT) in platelet poor plasma bycoagulation assay - 11/18/17 07:55 Activated partial thromboplastin time (aPTT) in platelet poor plasma bycoagulation assay 33 s 24-35 Comprehensive metabolic panel - 11/18/17 07:55 Serum or plasma sodium measurement (moles/volume) 139 mmol/L 135-145 Serum or plasma potassium measurement (moles/volume) 4.1 mmol/L 3.6-5.0 Serum or plasma chloride measurement (moles/volume) 105 mmol/L 98-107 Carbon dioxide 23 mmol/L 21-32 Serum or plasma anion gap determination (moles/volume) 11 mmol/L 5-14 Serum or plasma urea nitrogen measurement (mass/volume) 40 mg/dL 7-18 Serum or plasma creatinine measurement (mass/volume) 2.36 mg/dL 0.60-1.30 Serum or plasma urea nitrogen/creatinine mass ratio 17 NR Serum or plasma creatinine measurement with calculation of estimated glomerular filtration rate 27 [facility] Serum or plasma glucose measurement (mass/volume) 178 mg/dL 70-105 Serum or plasma calcium measurement (mass/volume) 8.6 mg/dL 8.5-10.1 Serum or plasma total bilirubin measurement (mass/volume) 0.5 mg/dL 0.1-1.0 Serum or plasma alkaline phosphatase measurement (enzymatic activity/volume) 65 U/L 40-136 Serum or plasma aspartate aminotransferase measurement (enzymatic activity/ volume) 11 U/L 5-34 Serum or plasma alanine aminotransferase measurement (enzymatic activity/volume ) 7 U/L 0-55 Serum or plasma protein measurement (mass/volume) 6.8 g/dL 6.4-8.2 Serum or plasma albumin measurement (mass/volume) 3.3 g/dL 3.2-4.5 Serum or plasma C reactive protein measurement (mass/volume) - 11/18/17 07:55 Serum or plasma C reactive protein measurement (mass/volume) 3.74 mg /dL 0.00-0.50 Serum or plasma lithium measurement (moles/volume) - 11/18/17 07:55 BNP level 1001.0 pg/mL <100.0 Complete urinalysis with reflex to culture - 11/18/17 08:00 Urine color determination YELLOW NRG Urine clarity determination CLEAR NRG Urine pH measurement by test strip 6 5-9 Specific gravity of urine by test strip 1.015 1.016- 1.022 Urine protein assay by test strip, semi-quantitative 3+ NEGATIVE Urine glucose detection by automated test strip NEGATIVE NEGATIVE Erythrocytes detection in urine sediment by light microscopy 3+ NEGATIVE Urine ketones detection by automated test strip NEGATIVE NEGATIVE Urine nitrite detection by test strip NEGATIVE NEGATIVE Urine total bilirubin detection by test strip NEGATIVE NEGATIVE Urine urobilinogen measurement by automated test strip (mass/volume) NORMAL NORMAL Urine leukocyte esterase detection by dipstick 3+ NEGATIVE Automated urine sediment erythrocyte count by microscopy (number/high power field) NONE NRG Automated urine sediment leukocyte count by microscopy (number/high power field ) TNTC NRG Bacteria detection in urine sediment by light microscopy LARGE NRG Crystals detection in urine sediment by light microscopy NONE NRG Casts detection in urine sediment by light microscopy NONE NRG Mucus detection in urine sediment by light microscopy NEGATIVE NRG Complete urinalysis with reflex to culture YES NRG Influenza virus A and B antigen detection - 11/18/17 08:20 FLU RESULT NEGATIVE FOR INFLUENZA A AND B ANTIGENS BY IA NRG Encounters ACCT No. Visit Date/Time Discharge Status Pt. Type Provider Facility Loc./Unit Complaint [id number] 06/22/2017 09:39:07 06/22/2017 23:59:59 CLS Outpatient Magdy Harris [id number] 12/28/2016 11:03:17 12/28/2016 23:59:59 CLS Outpatient Lucinda Elder [id number] 03/23/2015 22:06:00 03/23/2015 23:59:59 CLS Outpatient Magdy Harris [id number] 08/17/2014 18:33:51 08/17/2014 23:59:59 CLS Outpatient Magdy Harris [id number] 06/16/2014 12:15:27 06/16/2014 23:59:59 CLS Outpatient Carlie Vasques [id number] 06/16/2014 12:05:57 06/16/2014 23:59:59 CLS Outpatient Elder Jane [id number] 05/28/2014 10:15:40 05/28/2014 23:59:59 CLS Outpatient Elder Jane [id number] 10/13/2017 09:46:00 10/13/2017 23:59:59 CLS Outpatient ALISIA FERNANDEZ APRN [facility] RAD 6 MO F/U [id number] 11/18/2017 09:06:00 ACT Inpatient CARMENCITA HUTCHISON MD [facility] ICU SEVERE SEPSIS,RESP FAILURE, PNEUMONIA,UTI [id number] 07/18/2012 10:30:00 Document Registration [id number] 06/22/2012 11:55:00 Document Registration [id number] 06/15/2012 11:45:00 Document Registration [id number] 11/15/2017 08:47:22 Document Registration [id number] 11/08/2017 10:05:20 Document Registration [id number] 10/31/2017 08:43:38 Document Registration [id number] 10/17/2017 09:03:12 Document Registration [id number] 10/02/2017 09:40:16 Document Registration [id number] 09/25/2017 09:30:30 Document Registration [id number] 09/19/2017 09:06:04 Document Registration [id number] 09/11/2017 09:21:03 Document Registration [id number] 08/29/2017 10:32:35 Document Registration [id number] 08/21/2017 09:32:38 Document Registration [id number] 08/10/2017 10:19:01 Document Registration [id number] 08/08/2017 11:18:21 Document Registration [id number] 07/26/2017 08:57:43 Document Registration [id number] 07/17/2017 10:14:40 Document Registration [id number] 06/29/2017 15:08:16 Document Registration [id number] 06/29/2017 15:02:40 Document Registration [id number] 06/15/2017 11:41:11 Document Registration [id number] 06/09/2017 10:32:42 Document Registration [id number] 06/07/2017 08:50:33 Document Registration [id number] 06/01/2017 11:51:47 Document Registration [id number] 05/25/2017 10:57:54 Document Registration [id number] 05/24/2017 09:13:38 Document Registration [id number] 05/18/2017 11:10:48 Document Registration [id number] 05/16/2017 09:04:49 Document Registration [id number] 05/11/2017 08:52:19 Document Registration [id number] 04/16/2017 09:58:17 Document Registration [id number] 04/10/2017 21:33:41 Document Registration [id number] 04/10/2017 11:48:56 Document Registration [id number] 04/06/2017 09:05:08 Document Registration [id number] 04/04/2017 22:41:46 Document Registration [id number] 03/30/2017 19:13:52 Document Registration [id number] 03/30/2017 19:03:38 Document Registration [id number] 03/30/2017 18:54:41 Document Registration [id number] 03/30/2017 18:54:40 Document Registration [id number] 03/30/2017 18:54:39 Document Registration [id number] 03/30/2017 18:54:32 Document Registration [id number] 03/30/2017 10:31:21 Document Registration [id number] 06/23/2016 08:18:15 Document Registration [id number] 10/24/2017 11:16:01 10/24/2017 23:59:59 DIS Outpatient ALISIA FERNANDEZ [facility] [id number] 10/24/2017 10:48:40 10/24/2017 23:59:59 DIS Outpatient [facility] [id number] 07/10/2017 11:37:30 07/10/2017 23:59:59 DIS Outpatient ALISIA FERNANDEZ [facility] [id number] 07/10/2017 10:30:00 07/10/2017 23:59:59 DIS Outpatient [facility] [id number] 05/08/2017 10:00:00 05/08/2017 23:59:59 DIS Outpatient [facility] [id number] 04/10/2017 11:21:00 04/10/2017 23:59:59 DIS Outpatient JOSE GOMEZ [facility] [id number] 04/04/2017 10:00:00 04/04/2017 23:59:59 DIS Outpatient [facility] [id number] 03/30/2017 23:00:00 03/30/2017 23:59:59 DIS Outpatient JOSE GOMEZ [facility] [id number] 03/30/2017 13:58:24 03/30/2017 23:59:59 DIS Outpatient ALISIA FERNANDEZ [facility] [id number] 03/30/2017 08:33:09 03/30/2017 23:59:59 DIS Outpatient ALISIA FERNANDEZ [facility] [id number] 03/29/2017 14:43:40 03/29/2017 23:59:59 DIS Outpatient ALISIA FERNANDEZ [facility] [id number] 03/29/2017 14:30:00 03/29/2017 23:59:59 DIS Outpatient ALISIA FERNANDEZ [facility] [id number] 03/28/2017 14:22:51 03/28/2017 23:59:59 DIS Outpatient ALISIA FERNANDEZ [facility] [id number] 03/28/2017 14:15:00 03/28/2017 23:59:59 DIS Outpatient ALISIA FERNANDEZ [facility] [id number] 03/24/2017 12:28:31 03/24/2017 23:59:59 DIS Outpatient ALISIA FERNANDEZ [facility] [id number] 03/22/2017 09:09:27 03/22/2017 23:59:59 DIS Outpatient ALISIA FERNANDEZ [facility] [id number] 03/22/2017 09:06:44 03/22/2017 23:59:59 DIS Outpatient ALISIA FERNANDEZ [facility] [id number] 03/21/2017 10:43:28 03/21/2017 23:59:59 DIS Outpatient JIM ALISIA D [facility] [id number] 03/13/2017 08:09:54 03/13/2017 23:59:59 DIS Outpatient ALISIA FERNANDEZ [facility] [id number] 03/13/2017 08:05:46 03/13/2017 23:59:59 DIS Outpatient ALISIA FERNANDEZ [facility] [id number] 03/09/2017 14:15:00 03/09/2017 23:59:59 DIS Outpatient JIM ALISIA D [facility] [id number] 03/08/2017 10:30:00 03/08/2017 23:59:59 DIS Outpatient ALISIA FERNANDEZ [facility] [id number] 05/26/2014 00:00:00 05/26/2014 00:00:00 DIS Outpatient JOSE GOMEZ [facility] [id number] 10/13/2017 02:00:47 Document Registration [id number] 03/10/2017 02:00:24 Document Registration [id number] 12/06/2016 08:29:44 Document Registration [id number] 12/05/2016 02:01:42 Document Registration [id number] 12/03/2016 02:04:37 Document Registration [id number] 10/31/2016 09:27:45 Document Registration [id number] 10/28/2016 02:02:07 Document Registration [id number] 10/01/2016 02:01:20 Document Registration [id number] 08/30/2016 09:57:43 Document Registration
--- NOTE | 2017-11-18 10:25 | History & Physical-Hospitalist ---
History of Present Illness HPI/Chief Complaint Pt is a 72yoCM with a PMH of HTN, IDDMI, CKD and unknown neurologic condition resulting in lower extremity weakness who presented to the ER with CC fo SOB. He states he woke up coughing this morning and was unable to catch his breath. Per notes from the [facility] he was found to have oxygen saturation of 68% on 2lpm and 76% on 5lpm via [place]. He was transported to the ER where he was placed on BiPAP for ARF. He was found to have sepsis on presentation and was started on abx. He states he is feeling much better now. During my exam he was off BiPAP and was breathing comfortably. He denies any dysuria but did have some bladder pain. He denies any fevers. He had no other complaints. Source: patient Date Seen 11/18/17 Time Seen by Provider: 10:05 Attending Physician Carmencita Lord MD PCP Steven Cooper DO Referring Physician Date of Admission Nov 18, 2017 at 09:06 Home Medications & Allergies Home Medications Reviewed patient Home Medication Reconciliation performed by pharmacy medication reconciliations machine set up technician and/or nursing. Patients Allergies have been reviewed. Allergies Allergies Coded Allergies Penicillins (Unverified Allergy, Unknown, 05/11/12) Past Igmxpix-Tqagqp-Alwcgd Hx Past Med/Social Hx: Reviewed Nursing Past Med/Soc Hx, Reviewed and Corrections made Patient Social History Employed/Student: unemployed Alcohol Use: Denies Use Recreational Drug Use: No Smoking Status: Current Everyday Smoker (70 pack year history) Cigaretts per day: 5 Recent Foreign Travel: No Contact w/other who traveled: No Recent Infectious Disease Expo: No Past Medical History Surgeries: Abdominal (hemicolectomy), Amputation (right first and second toe) Respiratory: COPD Cardiac: Hypertension Neurological: Paralysis Genitourinary: Renal Failure, UTI-Chronic Gastrointestinal: Chronic Constipation Endocrine: Diabetes, Insulin dep Skin/Integumentary: Recent Skin Changes (chronic wounds, stage 4 pressure ulcer on coccyx) Family History CAD Under 55 Years Old, CAD Over 55 Years Old Review of Systems Constitutional: No chills, No fever EENTM: No blurred vision, No double vision, No nose congestion, No throat pain Respiratory: see HPI Cardiovascular: No chest pain, No edema, No palpitations Gastrointestinal: No abdominal pain, No constipation, No diarrhea, No nausea, No vomiting Genitourinary: No dysuria, No frequency, other (chronic indwelling mendez) Musculoskeletal: No joint pain, No muscle pain Skin: No lesions, No rash Psychiatric/Neurological: Denies Headache, Numbness, Pre-Existing Deficit ( lower extremity weakness), Denies Tingling Physical Exam Physical Exam Vital Signs Vital Signs - First Documented 11/18/17 11/18/17 11/18/17 07:54 08:23 08:47 Temp 96.8 Pulse 87 Resp 16 B/P (MAP) 139/71 (93) Pulse Ox 96 O2 Delivery NIV Bilevel O2 Flow Rate 55.00 FiO2 50 Capillary Refill : Less Than 3 Seconds General Appearance: No Apparent Distress, Chronically ill Neck: Non Tender, Supple, No JVD, No Thyromegaly Respiratory: No No Accessory Muscle Use, No No Respiratory Distress, Rhonci, No Wheezing Cardiovascular: Regular Rate, Rhythm, No JVD, No Murmur Gastrointestinal: Normal Bowel Sounds, Non Tender, Soft Extremity: Swelling, Other (s/p amputation of multiple toes) Neurologic/Psychiatric: Alert, Oriented x3, Normal Mood/Affect, Motor Weakness (lower extremities), Other (thenar wasting of bilateral hands) Skin: Erythema (bilaeral lower extremities), Other (stage 4 pressure ulcer on coccyx) Results Results/Procedures Labs Laboratory Tests 11/18/17 07:55 Patient resulted labs reviewed. Imaging: Reviewed Imaging Films, Reviewed Imaging Report Imaging Date of Exam:11/18/17 CHEST 1 VIEW, AP/PA ONLY INDICATION: Respiratory distress. TECHNIQUE: Single view chest 8:25 AM. CORRELATION STUDY: None FINDINGS: Right-sided pacemaker stable. Heart size borderline enlarged. Vasculature is increased. There are coarse bilateral pulmonary lung markings. IMPRESSION: 1. Cardiac enlargement with borderline vascular congestion. 2. Scattered pulmonary parenchymal densities are noted. It is indeterminate whether some of these are chronic versus more superimposed areas of infiltrate and/or edema. Would recommend short-term followup two-view chest imaging for reassessment. Assessment/Plan Admission Diagnosis Severe Sepsis Admission Status: Inpatient Order (span 2 midnights) Reason for Inpatient Admission: IV abx, respiratory support Diagnosis/Problems Diagnosis/Problems (1) Severe sepsis Status: Acute Assessment & Plan: Tachycardiac, tachypneic, and has leukocytosis Infiltrate seen on CXR and UA consistent with UTI (though urine likely chronic contamination) Received Levaquin in ER Will add Vanc and Cefepime (PCN allergy is hives) Lactic acid normal and no hypotension so no need for 30cc/kg bolus Qualifies for severe sepsis based on resp failure on arrival (2) Respiratory failure Status: Acute Assessment & Plan: Doing well on BiPAP Titrate sats to keep greater than 90 MAT protocol Pulm consulted, appreciate recs Qualifiers: Chronicity: acute Respiratory failure complication: hypoxia Qualified Codes: J96.01 - Acute respiratory failure with hypoxia (3) Pneumonia Status: Acute Assessment & Plan: Conitnue abx as above SPutum culture if able MAT protocol Qualifiers: Pneumonia type: due to unspecified organism Laterality: bilateral Lung location: unspecified part of lung Qualified Codes: J18.9 - Pneumonia, unspecified organism (4) Urinary tract infection Status: Acute Assessment & Plan: Culture sent May not actually be acute infection given chronic indwelling mendez Qualifiers: Urinary tract infection type: site unspecified Hematuria presence: without hematuria Qualified Codes: N39.0 - Urinary tract infection, site not specified (5) CKD (chronic kidney disease) stage 4, GFR 15-29 ml/min Status: Chronic Assessment & Plan: Cigar Head Piercer from 2013 per NH was 2.37 At baseline Trend (6) Essential (primary) hypertension Status: Chronic Assessment & Plan: WNL, will trend and resume home meds if needed (7) Insulin dependent diabetes mellitus Assessment & Plan: SSI Hold home meds (8) Tobacco abuse Assessment & Plan: Recommended cessation (9) Debility Assessment & Plan: Will consult PT/OT Wheelchair dependent at baseline (10) Pressure ulcer Assessment & Plan: ON coccyx Will consult wound care Qualifiers: Pressure ulcer location: other site Pressure ulcer stage: stage 4 Qualified Codes: L89.894 - Pressure ulcer of other site, stage 4 (11) Prophylactic measure Assessment & Plan: Lovenox ADA CARMENCITA Delgado MD Nov 18, 2017 10:25
[2017-11-18] MEDS ORDERED: NS IV 1000 ML 1,000 ML IV SCH ×2 (10:50→18:50)
[2017-11-18] MEDS ORDERED: NOREPINEPHRINE 4 MG in NS (IVPB) 250 ML IV SCH (10:50)
[2017-11-18] MEDS ORDERED: NS IV PRN (11:00)
[2017-11-18] MEDS ORDERED: ONDANSETRON 4 MG/2 ML (SDV) Z0FRAN IV PRN (11:00)
[2017-11-18] MEDS ORDERED: CATHETER FLUSH 10 ML SYR IV PRN (11:00)
[2017-11-18] MEDS ORDERED: VANCOMYCIN 1250 MG/NS 250 ML IVPB IV SCH ×2 (11:00)
[2017-11-18] MEDS ORDERED: CEFEPIME 2 GM/NS 100 ML IVPB IV SCH ×2 (11:00)
[2017-11-18] MEDS: CEFEPIME 2 GM/NS 100 ML IVPB IV SCH ×2 (11:06)
[2017-11-18] MEDS: PHENYLEPHRINE INJECTION 10 MG in NS (IVPB) 250 ML IV SCH ×2 (11:07→15:00)
[2017-11-18] MEDS: inSUlin ASPART (NovoLOG) 1 UNIT/0.01 ML (CHARGE PER UNIT) SC SCH ×3 (14:28→20:49)
[2017-11-18] MEDS: LACTOBACILLUS Acidoph/Bulgar (LACTINEX/FLORANEX) TAB PO SCH (16:44)
[2017-11-18] MEDS: HYDROcodone/APAP 10 MG/325 MG (LORTAB) TAB PO PRN (20:42)
[2017-11-19] VITALS (17 sets, daily range): BP systolic 120–161; BP diastolic 50–90
[2017-11-19 04:12] LABS: BASOPHILS % (AUTO) 0 % (0-10); EOSINOPHILS % (AUTO) 0 % (0-10); HEMATOCRIT 36 % (40-54); HEMOGLOBIN 11.4 G/DL (13.3-17.7); LYMPHOCYTES # (AUTO) 0.7 X 10^3 (1.0-4.0); LYMPHOCYTES % (AUTO) 8 % (12-44); MEAN CORPUSCULAR HEMOGLOBIN 26 PG (25-34); MEAN CORPUSCULAR HGB CONC 32 G/DL (32-36); MEAN CORPUSCULAR VOLUME 81 FL (80-99); MEAN PLATELET VOLUME 9.3 FL (7.4-10.4); MONOCYTES # (AUTO) 0.7 X 10^3 (0.0-1.0); MONOCYTES % (AUTO) 8 % (0-12); NEUTROPHILS % (AUTO) 84 % (42-75); PLATELET COUNT 185 10^3/uL (130-400); RED CELL DISTRIBUTION WIDTH 15.9 % (10.0-14.5); WHITE BLOOD COUNT 8.4 10^3/uL (4.3-11.0)
[2017-11-19 04:39] LABS: ALANINE AMINOTRANSFERASE < 6 U/L (0-55); ALBUMIN 3.3 GM/DL (3.2-4.5); ALKALINE PHOSPHATASE 55 U/L (40-136); BILIRUBIN,TOTAL 0.5 MG/DL (0.1-1.0); BUN/CREATININE RATIO 18; CALCIUM 8.8 MG/DL (8.5-10.1); CARBON DIOXIDE 25 MMOL/L (21-32); CHLORIDE 107 MMOL/L (98-107); CREATININE SERUM 2.34 MG/DL (0.60-1.30); GFR ESTIMATED 27; GLUCOSE 128 MG/DL (70-105); MAGNESIUM 1.2 MG/DL (1.8-2.4); POTASSIUM 4.3 MMOL/L (3.6-5.0); SODIUM 140 MMOL/L (135-145); TOTAL PROTEIN 6.7 GM/DL (6.4-8.2)
[2017-11-19] MEDS: RT-ALBUTEROL/IPRATROPIUM 3 ML (DUONEB) VIAL INH SCH ×5 (05:17→22:29)
[2017-11-19] MEDS: inSUlin ASPART (NovoLOG) 1 UNIT/0.01 ML (CHARGE PER UNIT) SC SCH ×4 (06:23→20:49)
--- NOTE | 2017-11-19 08:45 | Diagnostic Imaging Report ---
PATIENT HISTORY: Pneumonia, sepsis, respiratory failure. TECHNIQUE: Single frontal view of the chest COMPARISON: 11/18/2017 FINDINGS: Lung volumes are mildly decreased. There are patchy airspace opacities throughout the lungs bilaterally, with diffuse interstitial opacities present. This appears overall similar to 11/18/2017. No significant pleural effusion or pneumothorax is seen. The right-sided pacemaker leads appear stable. There is mild cardiomegaly with prominent central vascular opacities. There is diffuse osteopenia. IMPRESSION: 1. Patchy opacities in the lungs bilaterally, with additional diffuse interstitial opacities. This may be due to edema or infection, and aeration appears overall similar to 11/18/2017. 2. Mild cardiomegaly. Dictated by: Dictated on workstation # [id number]
[2017-11-19] MEDS: LACTOBACILLUS Acidoph/Bulgar (LACTINEX/FLORANEX) TAB PO SCH ×3 (09:38→15:18)
--- NOTE | 2017-11-19 09:44 | Progress Note-Hospitalist ---
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 He states he woke up coughing this morning and was unable to catch his breath. Per notes from the [facility] he was found to have oxygen saturation of 68% on 2lpm and 76% on 5lpm via NC. He was transported to the ER where he was placed on BiPAP for ARF. He was found to have sepsis on presentation and was started on abx. He states he is feeling much better now. During my exam he was off BiPAP and was breathing comfortably. He denies any dysuria but did have some bladder pain. He denies any fevers. He had no other complaints. Subjective/Events-last exam Pt is reports doing well but still having some episodes where it's hard to breath but nothing like when he came in and overall improving. States he is eating and drinking well. No other concerns. Focused Exam Lactate Level 11/18/17 07:55: Lactic Acid Level 1.61 Time of Focused Exam: 09:20 Objective Exam Vital Signs Vital Signs Date Time Temp Pulse Resp B/P (MAP) Pulse Ox O2 Delivery O2 Flow Rate FiO2 11/18/17 07:54 NIV Bilevel 11/18/17 07:54 96.8 87 16 139/71 (93) 96 11/18/17 08:23 50 11/18/17 08:47 55.00 Capillary Refill : Less Than 3 Seconds General Appearance: No Apparent Distress, WD/WN Respiratory: No Respiratory Distress, Crackles Cardiovascular: Regular Rate, Rhythm, No Murmur Gastrointestinal: Normal Bowel Sounds, Non Tender, Soft Extremity: Swelling (bilateral lower extremities), Other (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 Imaging: Reviewed Imaging Films, Reviewed Imaging Report Assessment/Plan Assessment and Plan Assess & Plan/Chief Complaint Severe Sepsis Diagnosis/Problems Diagnosis/Problems (1) Severe sepsis Status: Acute Assessment & Plan: Tachycardiac, tachypneic, and has leukocytosis on presentation but now improving Infiltrate seen on CXR and UA consistent with UTI (though urine likely colonization Continue Vanc and Cefepime (PCN allergy is hives) Await cultures (2) Respiratory failure Status: Acute Assessment & Plan: Improving On nasal cannula Titrate sats to keep greater than 90 MAT protocol Pulm consulted, appreciate recs Qualifiers: Chronicity: acute Respiratory failure complication: hypoxia Qualified Codes: J96.01 - Acute respiratory failure with hypoxia (3) Pneumonia Status: Acute Assessment & Plan: Continue abx as above Sputum culture if able MAT protocol Qualifiers: Pneumonia type: due to unspecified organism Laterality: bilateral Lung location: unspecified part of lung Qualified Codes: J18.9 - Pneumonia, unspecified organism (4) Urinary tract infection Status: Acute Assessment & Plan: Culture sent May not actually be acute infection given chronic indwelling mendez Qualifiers: Urinary tract infection type: site unspecified Hematuria presence: without hematuria Qualified Codes: N39.0 - Urinary tract infection, site not specified (5) CKD (chronic kidney disease) stage 4, GFR 15-29 ml/min Status: Chronic Assessment & Plan: Director Work from 2013 per [facility] was 2.37 At baseline Trend (6) Essential (primary) hypertension Status: Chronic Assessment & Plan: Well controlled, will trend and resume home meds if needed (7) Insulin dependent diabetes mellitus Assessment & Plan: SSI Hold home meds (8) Tobacco abuse Assessment & Plan: Recommended cessation (9) Debility Assessment & Plan: PT/OT Wheelchair dependent at baseline (10) Pressure ulcer Assessment & Plan: On coccyx Will consult wound care Qualifiers: Pressure ulcer location: other site Pressure ulcer stage: stage 4 Qualified Codes: L89.894 - Pressure ulcer of other site, stage 4 (11) Prophylactic measure Assessment & Plan: Lovenox ADA diet Clinical Quality Measures DVT/VTE Risk/Contraindication: Risk Factor Score Per Nursin RFS Level Per Nursing on Admit: 4+=Very High CARMENCITA HUTCHISON MD Nov 19, 2017 9:44 am
[2017-11-19] MEDS: CEFEPIME 2 GM/NS 100 ML IVPB IV SCH ×2 (10:30)
[2017-11-19] MEDS ORDERED: VANCOMYCIN 1 GM/NS 250 ML IVPB IV SCH ×2 (11:00)
[2017-11-19] MEDS: HYDROcodone/APAP 10 MG/325 MG (LORTAB) TAB PO PRN (14:15)
[2017-11-19] MEDS ORDERED: ENOXAPARIN 30 MG/0.3 ML (LOVENOX) SYR SC SCH (15:00)
[2017-11-19] MEDS: ENOXAPARIN 40 MG/0.4 ML (LOVENOX) SYR SC SCH (15:18)
[2017-11-19] MEDS ORDERED: BUDE10.2 IH (17:08)
[2017-11-19] MEDS ORDERED: MAGN400O7 PO (17:08)
[2017-11-19] MEDS ORDERED: CHOL200025 PO (17:08)
[2017-11-19] MEDS ORDERED: IPRA4AER IH (17:08)
[2017-11-19] MEDS ORDERED: MELA1TAB27 PO (17:08)
[2017-11-19] MEDS ORDERED: AMLO5TAB2 PO (17:08)
[2017-11-19] MEDS ORDERED: CALC0.253 PO (17:08)
[2017-11-19] MEDS ORDERED: ZINC50TA31 PO (17:08)
[2017-11-19] MEDS ORDERED: ASCO-262 PO (17:08)
[2017-11-19] MEDS ORDERED: TAMS0.4C2 PO (17:08)
[2017-11-19] MEDS ORDERED: GABA-486 PO (17:08)
[2017-11-19] MEDS ORDERED: MELO7.5T46 PO (17:08)
[2017-11-19] MEDS ORDERED: HYDR-3820 PO (17:08)
[2017-11-19] MEDS ORDERED: SIMV40TA4 PO (17:08)
[2017-11-19] MEDS ORDERED: FLUT16SP22 NS (17:08)
[2017-11-19] MEDS ORDERED: ACET325T49 PO (17:08)
[2017-11-19] MEDS ORDERED: BISA10SU6 RC (17:08)
[2017-11-19] MEDS ORDERED: PANT40TA3 PO (17:08)
[2017-11-19] MEDS ORDERED: CYAN10007 PO (17:08)
[2017-11-19] MEDS ORDERED: ONDA4TAB11 SL (17:08)
[2017-11-19] MEDS ORDERED: PARO10TA3 PO (17:08)
[2017-11-19] MEDS ORDERED: GLIP10TA13 PO (17:08)
[2017-11-19] MEDS ORDERED: INSU100I23 SQ (17:08)
[2017-11-20] MEDS: RT-ALBUTEROL/IPRATROPIUM 3 ML (DUONEB) VIAL INH SCH ×6 (02:13→21:38)
[2017-11-20 04:27] VITALS: BP 173/90
[2017-11-20] MEDS: HYDROcodone/APAP 10 MG/325 MG (LORTAB) TAB PO PRN (04:31)
[2017-11-20] MEDS: LACTOBACILLUS Acidoph/Bulgar (LACTINEX/FLORANEX) TAB PO SCH ×3 (04:31→17:21)
[2017-11-20] MEDS: inSUlin ASPART (NovoLOG) 1 UNIT/0.01 ML (CHARGE PER UNIT) SC SCH ×4 (05:54→20:45)
[2017-11-20 06:46] LABS: BASOPHILS % (AUTO) 0 % (0-10); EOSINOPHILS # (AUTO) 0.1 10^3/uL (0.0-0.3); EOSINOPHILS % (AUTO) 0 % (0-10); HEMATOCRIT 35 % (40-54); HEMOGLOBIN 11.2 G/DL (13.3-17.7); LYMPHOCYTES # (AUTO) 1.1 X 10^3 (1.0-4.0); LYMPHOCYTES % (AUTO) 8 % (12-44); MEAN CORPUSCULAR HEMOGLOBIN 26 PG (25-34); MEAN CORPUSCULAR HGB CONC 32 G/DL (32-36); MEAN CORPUSCULAR VOLUME 81 FL (80-99); MEAN PLATELET VOLUME 9.4 FL (7.4-10.4); MONOCYTES # (AUTO) 1.3 X 10^3 (0.0-1.0); MONOCYTES % (AUTO) 9 % (0-12); NEUTROPHILS # (AUTO) 11.2 X 10^3 (1.8-7.8); NEUTROPHILS % (AUTO) 82 % (42-75); PLATELET COUNT 198 10^3/uL (130-400); RED BLOOD COUNT 4.27 10^6/uL (4.35-5.85); RED CELL DISTRIBUTION WIDTH 16.1 % (10.0-14.5); WHITE BLOOD COUNT 13.6 10^3/uL (4.3-11.0)
[2017-11-20 06:59] LABS: CALCIUM 8.9 MG/DL (8.5-10.1); CREATININE SERUM 2.22 MG/DL (0.60-1.30); POTASSIUM 3.8 MMOL/L (3.6-5.0)
[2017-11-20] MEDS ORDERED: LEVOFLOXACIN 750 MG/D5W 150 ML PRE-MIX IV SCH (08:00)
[2017-11-20 08:30] VITALS: BP_SYST 154; BP_SYST 172; BP_DIAS 72; BP_DIAS 77
[2017-11-20] MEDS ORDERED: TROUGH ORDER-PHARMACY XX NR (10:00)
[2017-11-20] MEDS: CEFEPIME 2 GM/NS 100 ML IVPB IV SCH ×2 (10:35)
[2017-11-20 12:30] VITALS: BP 172/77
--- NOTE | 2017-11-20 15:21 | Progress Note-Hospitalist ---
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 He states he woke up coughing this morning and was unable to catch his breath. Per notes from the [place] he was found to have oxygen saturation of 68% on 2lpm and 76% on 5lpm via NC. He was transported to the ER where he was placed on BiPAP for ARF. He was found to have sepsis on presentation and was started on abx. He states he is feeling much better now. During my exam he was off BiPAP and was breathing comfortably. He denies any dysuria but did have some bladder pain. He denies any fevers. He had no other complaints. Progress Notes/Assess & Plan Date Seen 11/20/17 Time Seen by Provider: 15:10 Assessment & Plan The patient is a 72-year-old white male who lives at [facility]. He was admitted after he presented with hypoxia and increasing dyspnea. Records show that he is chronically on O2 but his SaO2 fell considerably but did respond to pressure assistance. He has an indwelling Cervantes catheter. He has got wounds on his legs which have been treated in a wound care facility in [place]. Cultures now show Pseudomonas and staph species on the leg wounds. UA shows WBCs too numerous to count and the urine is growing Pseudomonas and enterococcus faecalis. It appears that he has chronic renal failure with a creatinine in the 2.2 range. Hydration has not improved this. White blood count was 16.2 admission. It fell to 8.4 and then aleja again to 13.6. He had been placed on cefepime and vancomycin. The vancomycin was discontinued because of his renal failure. After discussion with clinical pharmacology Aditya will be admitted. Physical exam: The patient was rather deeply is asleep pressure assistance in place. He ultimately awakened after voice and physical stimulation. Lungs showed very distant breath sounds. CV was regular. Abdomen was somewhat obese. Extremities showed rather flat and rectangular feet. A portion of the left great toe is missing. The skin quality was purple and lumpy. Impression: COPD with chronic oxygen requirements. 2.presumptive urinary tract infection although he has a chronic Cervantes catheter. 3.skin ulcerations both lower extremities with history of same going back at least to 2011. Impression: Borderline pulmonary failure. 2.renal failure. 3.sepsis with Pseudomonas growing from wounds and urine and enterococcus from the urine. Plan: Adjust medications. Focused Exam Lactate Level 11/18/17 07:55: Lactic Acid Level 1.61 Time of Focused Exam: 09:20 JOHN BHARDWAJ MD Nov 20, 2017 15:21
[2017-11-20 16:00] VITALS: BP 167/77
[2017-11-20] MEDS: ENOXAPARIN 40 MG/0.4 ML (LOVENOX) SYR SC SCH (17:21)
[2017-11-20 20:00] VITALS: BP 156/69
[2017-11-21] VITALS (7 sets, daily range): BP systolic 145–186; BP diastolic 67–87
[2017-11-21] MEDS: RT-ALBUTEROL/IPRATROPIUM 3 ML (DUONEB) VIAL INH SCH ×6 (02:44→21:49)
[2017-11-21] MEDS: inSUlin ASPART (NovoLOG) 1 UNIT/0.01 ML (CHARGE PER UNIT) SC SCH ×4 (05:35→20:57)
[2017-11-21] MEDS: LACTOBACILLUS Acidoph/Bulgar (LACTINEX/FLORANEX) TAB PO SCH ×3 (05:51→15:49)
[2017-11-21 06:30] LABS: BASOPHILS % (AUTO) 0 % (0-10); EOSINOPHILS # (AUTO) 0.1 10^3/uL (0.0-0.3); EOSINOPHILS % (AUTO) 1 % (0-10); HEMATOCRIT 32 % (40-54); HEMOGLOBIN 10.2 G/DL (13.3-17.7); LYMPHOCYTES # (AUTO) 1.4 X 10^3 (1.0-4.0); LYMPHOCYTES % (AUTO) 17 % (12-44); MEAN CORPUSCULAR HEMOGLOBIN 26 PG (25-34); MEAN CORPUSCULAR HGB CONC 32 G/DL (32-36); MEAN CORPUSCULAR VOLUME 81 FL (80-99); MEAN PLATELET VOLUME 9.6 FL (7.4-10.4); MONOCYTES % (AUTO) 13 % (0-12); NEUTROPHILS # (AUTO) 5.6 X 10^3 (1.8-7.8); NEUTROPHILS % (AUTO) 69 % (42-75); PLATELET COUNT 193 10^3/uL (130-400); RED BLOOD COUNT 3.97 10^6/uL (4.35-5.85); RED CELL DISTRIBUTION WIDTH 15.3 % (10.0-14.5); WHITE BLOOD COUNT 8.1 10^3/uL (4.3-11.0)
[2017-11-21 06:48] LABS: CALCIUM 8.7 MG/DL (8.5-10.1); CREATININE SERUM 1.91 MG/DL (0.60-1.30); POTASSIUM 3.8 MMOL/L (3.6-5.0)
[2017-11-21] MEDS: HYDROcodone/APAP 10 MG/325 MG (LORTAB) TAB PO PRN ×3 (08:22→21:53)
[2017-11-21] MEDS ORDERED: CIPROFLOXACIN IV 400MG/200ML 200 ML IV SCH (09:00)
[2017-11-21] MEDS: CEFEPIME 2 GM/NS 100 ML IVPB IV SCH ×2 (10:40)
--- NOTE | 2017-11-21 15:39 | Progress Note-Hospitalist ---
Progress Note Progress Notes/Assess & Plan Date Seen 11/21/17 Time Seen by Provider: 15:15 Admission Dx/Process The patient is considerably more alert than yesterday. He still requires pressure support. His white blood count was 16.2 at admission and is 8.1 now. It is also noted that his hemoglobin was 12.2 at admission and 10.2 now and the creatinine 2.22 and 1.1 now suggesting dehydration at admission. Physical exam: The lungs show very shallow and dull breath sounds. CV is regular without murmur. Plan: Continue present antibiotics and IV fluids. Focused Exam Time of Focused Exam: 09:20 JOHN BHARDWAJ MD Nov 21, 2017 15:39
[2017-11-21] MEDS: ENOXAPARIN 40 MG/0.4 ML (LOVENOX) SYR SC SCH (15:49)
[2017-11-22 00:02] VITALS: BP 156/71
[2017-11-22] MEDS: RT-ALBUTEROL/IPRATROPIUM 3 ML (DUONEB) VIAL INH SCH ×4 (01:39→14:01)
[2017-11-22 03:45] LABS: BASOPHILS # (AUTO) 0.1 10^3/uL (0.0-0.1); BASOPHILS % (AUTO) 1 % (0-10); EOSINOPHILS # (AUTO) 0.2 10^3/uL (0.0-0.3); EOSINOPHILS % (AUTO) 2 % (0-10); HEMATOCRIT 34 % (40-54); HEMOGLOBIN 11.1 G/DL (13.3-17.7); LYMPHOCYTES # (AUTO) 1.8 X 10^3 (1.0-4.0); LYMPHOCYTES % (AUTO) 21 % (12-44); MEAN CORPUSCULAR HEMOGLOBIN 26 PG (25-34); MEAN CORPUSCULAR HGB CONC 33 G/DL (32-36); MEAN CORPUSCULAR VOLUME 80 FL (80-99); MEAN PLATELET VOLUME 9.6 FL (7.4-10.4); MONOCYTES # (AUTO) 1.2 X 10^3 (0.0-1.0); MONOCYTES % (AUTO) 15 % (0-12); NEUTROPHILS # (AUTO) 5.1 X 10^3 (1.8-7.8); NEUTROPHILS % (AUTO) 62 % (42-75); PLATELET COUNT 211 10^3/uL (130-400); RED BLOOD COUNT 4.23 10^6/uL (4.35-5.85); RED CELL DISTRIBUTION WIDTH 15.2 % (10.0-14.5); WHITE BLOOD COUNT 8.3 10^3/uL (4.3-11.0)
[2017-11-22 04:06] LABS: CREATININE SERUM 1.9 MG/DL (0.60-1.30); POTASSIUM 3.9 MMOL/L (3.6-5.0)
[2017-11-22] MEDS: HYDROcodone/APAP 10 MG/325 MG (LORTAB) TAB PO PRN (04:06)
[2017-11-22 04:07] LABS: CALCIUM 8.9 MG/DL (8.5-10.1)
[2017-11-22 04:34] VITALS: BP 159/84
[2017-11-22] MEDS: inSUlin ASPART (NovoLOG) 1 UNIT/0.01 ML (CHARGE PER UNIT) SC SCH ×4 (05:17→20:56)
[2017-11-22] MEDS: LACTOBACILLUS Acidoph/Bulgar (LACTINEX/FLORANEX) TAB PO SCH ×3 (05:22→15:57)
[2017-11-22 08:00] VITALS: BP 172/78
[2017-11-22] MEDS: CEFEPIME 2 GM/NS 100 ML IVPB IV SCH ×2 (08:55)
[2017-11-22] MEDS: CIPROFLOXACIN 500 MG (CIPRO) TABLET PO SCH ×2 (08:55→20:53)
[2017-11-22] MEDS ORDERED: BISACODYL 10 MG SUPP (DULCOLAX) RC PRN (11:15)
[2017-11-22] MEDS ORDERED: ACETAMINOPHEN 325 MG TABLET PO PRN (11:15)
[2017-11-22] MEDS ORDERED: MILK OF MAGNESIA 400 MG/5 ML 30 ML UDC PO PRN (11:15)
--- NOTE | 2017-11-22 11:34 | Progress Note-Hospitalist ---
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 He states he woke up coughing this morning and was unable to catch his breath. [facility] to have oxygen saturation of 68% on 2lpm and 76% on 5lpm via [place]. He was transported to the ER where he was placed on BiPAP for ARF. He was found to have sepsis on presentation and was started on abx. He states he is feeling much better now. During my exam he was off BiPAP and was breathing comfortably. He denies any dysuria but did have some bladder pain. He denies any fevers. He had no other complaints. Subjective/Events-last exam [facility] just much more comfortable than this that Has not been out of bed but he only gets up in a chair and wheelchair [facility] the [facility] anyway Reviewed culture results and patient maintained on antibiotics for Pseudomonas and enterococcus. Patient appears to be much improved he is eating and drinking bowels are moving and he really was to go home so we will plan on discharge tomorrow back to [facility] and rehabilitation on [facility]. Overall patient very declined considering his nearly bedridden state. Review of Systems General: Fatigue, Malaise Focused Exam Time of Focused Exam: 09:20 Objective Exam Vital Signs Vital Signs Date Time Temp Pulse Resp B/P (MAP) Pulse Ox O2 Delivery O2 Flow Rate FiO2 11/18/17 07:54 NIV Bilevel 11/18/17 07:54 96.8 87 16 139/71 (93) 96 11/18/17 08:23 50 11/18/17 08:47 55.00 Capillary Refill : Less Than 3 Seconds General Appearance: No Apparent Distress, WD/WN, Chronically ill Neck: Full Range of Motion Respiratory: Lungs Clear, Normal Breath Sounds Cardiovascular: Regular Rate, Rhythm, No Edema Extremity: Other (chronic venous stasis changes) Neurologic/Psychiatric: Alert, Oriented x3, No Motor/Sensory Deficits, 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 Imaging: Reviewed Imaging Films, Reviewed Imaging Report Assessment/Plan Assessment and Plan Assess & Plan/Chief Complaint Assessment: Complicated UTI due to indwelling Cervantes catheter as source of infection Neurogenic bladder Decubitus ulcers Chronic venous stasis changes of the lower legs with severe thickened skin and abnormal toenails Bedridden status with poor motivation Chronic renal insufficiency Plan: Maintain IV antibiotics Discharge plan for tomorrow Poor prognosis long-term Diagnosis/Problems Diagnosis/Problems (1) Urinary tract infection Status: Acute Qualifiers: Urinary tract infection type: site unspecified Hematuria presence: without hematuria Qualified Codes: N39.0 - Urinary tract infection, site not specified (2) Renal failure Status: Acute Qualifiers: Renal failure chronicity: unspecified chronicity Qualified Codes: N19 - Unspecified kidney failure (3) Respiratory failure Status: Resolved Qualifiers: Chronicity: acute Respiratory failure complication: hypoxia Qualified Codes: J96.01 - Acute respiratory failure with hypoxia (4) Severe sepsis Status: Resolved (5) Pressure ulcer Status: Chronic Qualifiers: Pressure ulcer location: other site Pressure ulcer stage: stage 4 Qualified Codes: L89.894 - Pressure ulcer of other site, stage 4 (6) Essential (primary) hypertension Status: Chronic Clinical Quality Measures DVT/VTE Risk/Contraindication: Risk Factor Score Per Nursin RFS Level Per Nursing on Admit: 4+=Very High FAUSTO GERBER DO Nov 22, 2017 11:34
[2017-11-22] MEDS ORDERED: ONDANSETRON 4 MG (ZOFRAN) ORAL DISSOLVE TAB PO PRN (12:00)
[2017-11-22] MEDS: HYDROcodone/APAP 10 MG/325 MG (LORTAB) TAB PO SCH ×2 (12:01→23:16)
[2017-11-22] MEDS: ASCORBIC ACID (VIT C) 500 MG TABLET PO SCH (13:27)
[2017-11-22] MEDS: CYANOCOBALAMIN 500 MCG TAB (VITAMIN B-12) PO SCH (13:27)
--- NOTE | 2017-11-22 14:25 | Occ Therapy Progress Note ---
Therapy Progress Note Order received for OT eval and treat. Chart review completed. Attempted therapy at 1415. Pt in bed, declined therapy at this time. [facility] and will be [facility] tomorrow. Does not want to participate at this time secondary to fatigue, pain in his LE, and wanting to make sure he doesn't get short of breath. Will attempt tomorrow if pt is not discharged. 1, visit NIKOLAS BENNETT OT Nov 22, 2017 14:25
--- NOTE | 2017-11-22 14:40 | Physical Therapy Progress Note ---
Therapy Progress Note PT evaluation attempted. Pt declined participation noting, "I just want to go back home." He resides at [facility]. He reports he does not want to participate with therapy today. No treatment rendered. FISH PINEDA PT Nov 22, 2017 14:40
[2017-11-22] MEDS: ENOXAPARIN 40 MG/0.4 ML (LOVENOX) SYR SC SCH (15:57)
[2017-11-22] MEDS: GABAPENTIN 100 MG (NEURONTIN) CAP PO SCH ×2 (15:58→23:15)
[2017-11-22] MEDS: RT-ALBUTEROL/IPRATROPIUM 3 ML (DUONEB) VIAL IH SCH ×2 (16:18→20:10)
[2017-11-22 16:53] VITALS: BP 167/76
[2017-11-22] MEDS ORDERED: SIMvastatin 40 MG (ZOCOR) TAB PO SCH (17:00)
[2017-11-22] MEDS: RT-ADVAIR HFA 115/21 MCG PER PUFF IH SCH (20:10)
[2017-11-22] MEDS ORDERED: MELATONIN 3 MG TABLET PO PRN (20:30)
[2017-11-22] MEDS ORDERED: FLUTICASONE NASAL SPRAY (FLONASE) 16 GM BTL NS SCH (21:00)
[2017-11-23] VITALS: BP 155/68
[2017-11-23 06:00] LABS: BASOPHILS # (AUTO) 0.1 10^3/uL (0.0-0.1); BASOPHILS % (AUTO) 1 % (0-10); EOSINOPHILS # (AUTO) 0.2 10^3/uL (0.0-0.3); EOSINOPHILS % (AUTO) 3 % (0-10); HEMATOCRIT 36 % (40-54); HEMOGLOBIN 11.7 G/DL (13.3-17.7); LYMPHOCYTES # (AUTO) 1.6 X 10^3 (1.0-4.0); LYMPHOCYTES % (AUTO) 19 % (12-44); MEAN CORPUSCULAR HEMOGLOBIN 26 PG (25-34); MEAN CORPUSCULAR HGB CONC 33 G/DL (32-36); MEAN CORPUSCULAR VOLUME 80 FL (80-99); MEAN PLATELET VOLUME 9.4 FL (7.4-10.4); MONOCYTES # (AUTO) 1.3 X 10^3 (0.0-1.0); MONOCYTES % (AUTO) 15 % (0-12); NEUTROPHILS # (AUTO) 5.5 X 10^3 (1.8-7.8); NEUTROPHILS % (AUTO) 64 % (42-75); PLATELET COUNT 246 10^3/uL (130-400); RED BLOOD COUNT 4.46 10^6/uL (4.35-5.85); RED CELL DISTRIBUTION WIDTH 15.1 % (10.0-14.5); WHITE BLOOD COUNT 8.6 10^3/uL (4.3-11.0)
[2017-11-23 06:12] LABS: CALCIUM 9.2 MG/DL (8.5-10.1); CREATININE SERUM 1.78 MG/DL (0.60-1.30); POTASSIUM 3.9 MMOL/L (3.6-5.0)
[2017-11-23] MEDS: LACTOBACILLUS Acidoph/Bulgar (LACTINEX/FLORANEX) TAB PO SCH ×3 (06:24→15:21)
[2017-11-23] MEDS: inSUlin ASPART (NovoLOG) 1 UNIT/0.01 ML (CHARGE PER UNIT) SC SCH ×2 (06:25→11:21)
[2017-11-23] MEDS ORDERED: glipiZIDE 5 MG (GLUCOTROL) TAB PO SCH (06:30)
[2017-11-23] MEDS: RT-ALBUTEROL/IPRATROPIUM 3 ML (DUONEB) VIAL IH SCH ×3 (07:13→15:42)
[2017-11-23] MEDS: RT-ADVAIR HFA 115/21 MCG PER PUFF IH SCH (07:13)
[2017-11-23 08:00] VITALS: BP 183/80
[2017-11-23] MEDS: CYANOCOBALAMIN 500 MCG TAB (VITAMIN B-12) PO SCH (08:26)
[2017-11-23] MEDS: ASCORBIC ACID (VIT C) 500 MG TABLET PO SCH (08:26)
[2017-11-23] MEDS: GABAPENTIN 100 MG (NEURONTIN) CAP PO SCH ×2 (08:26→15:21)
[2017-11-23] MEDS: CIPROFLOXACIN 500 MG (CIPRO) TABLET PO SCH (08:26)
[2017-11-23] MEDS: HYDROcodone/APAP 10 MG/325 MG (LORTAB) TAB PO SCH ×2 (08:27→15:21)
[2017-11-23] MEDS ORDERED: PANTOPRAZOLE 40 MG (PROTONIX) TAB PO SCH (09:00)
[2017-11-23] MEDS ORDERED: VITAMIN D3 1,000 UNITS (CHOLECALCIFEROL) TABLET PO SCH (09:00)
[2017-11-23] MEDS ORDERED: PARoxetine 10 MG (PAXIL) TAB PO SCH (09:00)
[2017-11-23] MEDS ORDERED: CALCITRIOL 0.25 MCG PO SCH (09:00)
[2017-11-23] MEDS ORDERED: MELOXICAM 7.5 MG (MOBIC) TABLET PO SCH (09:00)
[2017-11-23] MEDS ORDERED: NON-FORMULARY MEDICATION 1 EA EA (Zinc 50 MG) PO SCH (09:00)
[2017-11-23] MEDS ORDERED: TAMSULOSIN 0.4 MG (FLOMAX) CAP PO SCH (09:00)
[2017-11-23] MEDS ORDERED: amLODIPine 5 MG (NORVASC) TAB PO SCH (09:00)
--- NOTE | 2017-11-23 10:19 | Physical Therapy Progress Note ---
Therapy Progress Note Patient declined PT intervention stating, "I just want my walking papers and to go home." PT educated patient on importance of participating with therapy to improve LOF, however, patient continued to decline. Due to refusal, No PT indicated. 1 ref (DC) JOHNNY EARL PT Nov 23, 2017 10:19
[2017-11-23] MEDS ORDERED: ACID1TAB PO (10:43)
[2017-11-23] MEDS ORDERED: CIPR500T4 PO (10:43)
--- NOTE | 2017-11-23 10:45 | Discharge Summary-Hospitalist ---
Diagnosis/Chief Complaint Date of Admission Nov 18, 2017 at 09:06 Date of Discharge Discharge Date: Nov 23, 2017 Admission Diagnosis The patient is considerably more alert than yesterday. He still requires pressure support. His white blood count was 16.2 at admission and is 8.1 now. It is also noted that his hemoglobin was 12.2 at admission and 10.2 now and the creatinine 2.22 and 1.1 now suggesting dehydration at admission. Physical exam: The lungs show very shallow and dull breath sounds. CV is regular without murmur. Plan: Continue present antibiotics and IV fluids. Discharge Diagnosis Assessment: Complicated UTI due to indwelling Cervantes catheter as source of infection Neurogenic bladder Decubitus ulcers Chronic venous stasis changes of the lower legs with severe thickened skin and abnormal toenails Bedridden status with poor motivation Chronic renal insufficiency Plan: Maintain IV antibiotics Discharge plan for tomorrow Poor prognosis long-term (1) Urinary tract infection Status: Acute (2) Renal failure Status: Acute (3) Respiratory failure Status: Resolved (4) Severe sepsis Status: Resolved (5) Pressure ulcer Status: Chronic (6) Essential (primary) hypertension Status: Chronic Discharge Summary Discharge Physical Exam Allergies: Coded Allergies: Penicillins (Unverified Allergy, Mild, Hives, 11/18/17) Vitals & I&Os Vital Signs Date Time Temp Pulse Resp B/P (MAP) Pulse Ox O2 Delivery O2 Flow Rate FiO2 11/23/17 16:50 11/23/17 15:42 93 Nasal Cannula 2.00 11/23/17 08:00 97.6 72 20 11/21/17 13:12 30 General Appearance: Alert, Oriented X3, Cooperative Respiratory: Clear to Auscultation, Normal Air Movement Psych/Mental Status: Mental Status NL, Mood NL Hospital Course Hospital course: Patient was admitted and empirically placed on antibiotic coverage for resistant organism UTI. Pseudomonas and ID and sensitivity were reviewed and patient was maintained on appropriate antibiotic coverage. Acute renal failure did improve with IV fluids home medications were reconciled and restarted and patient overall was agreeable for discharge although he wanted discharge sooner than clinically stable since he had a special bed at the [facility] that he wanted to get back to. He refused all physical therapy so he was not skilled at discharge and will complete 7 days of Cipro antibiotic coverage treatment. 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 Pending Labs Imaging: Reviewed Imaging Films, Reviewed Imaging Report Discussion & Recommendations Discharge Planning: <30 minutes discharge planning Discharge Home Medications: Active Scripts Active Floranex Tablet (L. Acidophilus/Bulgaricus) 1 Each Tablet 1 Tab.chew PO AC 14 Days Ciprofloxacin HCl 500 Mg Tablet 500 Mg PO BID Reported Ondansetron Odt (Ondansetron) 4 Mg Tab.rapdis 4 Mg SL Q6H PRN Acetaminophen 325 Mg Tablet 650 Mg PO Q4H PRN TAKES 2 (325 MG) TABLETS Milk of Magnesia (Magnesium Hydroxide) 400 Mg/5 Ml Oral.susp 30 Ml PO DAILY PRN Bisacodyl 10 Mg Supp.rect 10 Mg RC DAILY PRN Combivent Respimat Inhal Daisy (Albuterol/Ipratropium) 4 Gm Aero 1 Puff IH QID Gabapentin 100 Mg Capsule 100 Mg PO 0000,0800,1600 Hydrocodon-Acetaminophn 10-325 (Hydrocodone/Acetaminophen) 1 Each Tablet 1 Tab PO 0000,0800,1600 Symbicort 160-4.5 Mcg Inhaler (Budesonide/Formoterol Fumarate) 10.2 Gm Hfa.aer.ad 2 Puff IH BID Simvastatin 40 Mg Tablet 40 Mg PO 1700 Zinc 50 Mg Tablet 50 Mg PO DAILY Vitamin D3 (Cholecalciferol (Vitamin D3)) 2,000 Unit Tablet 2,000 Unit PO DAILY Vitamin C (Ascorbate Calcium) 500 Mg Tablet 500 Mg PO DAILY Vitamin B-12 (Cyanocobalamin (Vitamin B-12)) 1,000 Mcg Tablet.er 1,000 Mcg PO DAILY Calcitriol 0.25 Mcg Capsule 0.25 Mcg PO DAILY Pantoprazole Sodium 40 Mg Tablet.dr 40 Mg PO DAILY Paroxetine HCl 10 Mg Tablet 10 Mg PO DAILY Amlodipine Besylate 5 Mg Tablet 5 Mg PO DAILY Meloxicam 7.5 Mg Tablet 7.5 Mg PO DAILY Glipizide 10 Mg Tablet 10 Mg PO DAILY Fluticasone Propionate 16 Gm Daisy.susp 1 Daisy NSEACH HS Tamsulosin HCl 0.4 Mg Cap.er.24h 0.4 Mg PO DAILY Humalog Kwikpen (Insulin Lispro) 100 Unit/1 Ml Insuln.pen SQ ACHS INJECT PER SLIDING SCALE: 151-199 1 UNIT 200-249 2 UNITS 250-299 3 UNITS 300-349 4 UNITS 350-399 5 UNITS IF GREATER THAN 400 NOTIFY PCP Instructions to patient/family Please see electronic discharge instructions given to patient. Clinical Quality Measures DVT/VTE Risk/Contraindication: Risk Factor Score Per Nursin RFS Level Per Nursing on Admit: 4+=Very High Problem Qualifiers (1) Urinary tract infection: Urinary tract infection type: site unspecified Hematuria presence: without hematuria Qualified Codes: N39.0 - Urinary tract infection, site not specified (2) Renal failure: Renal failure chronicity: unspecified chronicity Qualified Codes: N19 - Unspecified kidney failure (3) Respiratory failure: Chronicity: acute Respiratory failure complication: hypoxia Qualified Codes : J96.01 - Acute respiratory failure with hypoxia (4) Pressure ulcer: Pressure ulcer location: other site Pressure ulcer stage: stage 4 Qualified Codes: L89.894 - Pressure ulcer of other site, stage 4 FAUSTO GERBER DO Nov 23, 2017 10:44
[2017-11-23] MEDS: CEFEPIME 2 GM/NS 100 ML IVPB IV SCH ×2 (10:55)
--- NOTE | 2017-11-23 11:59 | Occ Therapy Progress Note ---
Therapy Progress Note Attempted therapy at 1105. Pt in bed, states he is leaving today and declined to participate in therapy. Pt states he will receive therapy at the long term. Pt denied needs at this time. 1, visit- refused. NIKOLAS BENNETT OT Nov 23, 2017 11:59
[2017-11-23] MEDS: ENOXAPARIN 40 MG/0.4 ML (LOVENOX) SYR SC SCH (15:21)
[2017-11-23] MEDS ORDERED: ZINC SULFATE 220 MG CAPSULE PO SCH (17:00)
--- NOTE | 2017-11-24 10:37 | Physician Query Clarification ---
PQ-Link Infection to Dev/Proc Admission/Discharge Admission Date: Nov 18, 2017 at 09:06 Discharge Date: Nov 23, 2017 at 16:50 The medical record reflects the following clinical scenario: History/Risk Factors: Indwelling mendez catheter, decubitus ulcer, acute respiratory failure Clinical Findings: O2 sat 68%, SOB, WBC 16.2, T 96.5, RR 25, BP 116/58 Treatment: Levaquin, vancomycin, cefepim , Bipap Question: Can you specify if the Sepsis is due to/associated with the UTI d/t mendez catheter, pneumonia, decubitus ulcers or due to all? Please document a response below. PHYSICIAN RESPONSE Specify if infection: Yes,due to/associated with device In responding to this query, please exercise your independent professional judgment. The purpose of this communication is to more accurately reflect the complexity of your patients condition. The fact that a question is asked does not imply that any particular answer is desired or expected. Thank you for your timely response to this clarification. Requestors name: Neftali THIS PHYSICIAN QUERY FORM IS A PERMANENT PART OF THE MEDICAL RECORD NEFTALI CUMMINGS Nov 24, 2017 10:37 FAUSTO GERBER DO Nov 24, 2017 12:12
== END 2017-11-23 16:50 | DRG 698 ==
LOC: EDUNIT# 07:48 → ER 07:49 → ICU 09:06 → 4TH 11-19 12:30
PROVIDERS: ADMIT Family Medicine; ATTEND Family Medicine
DX: T83.511A Infection and inflammatory reaction due to indwelling urethral catheter, initial encounter (principal); A41.9 Sepsis, unspecified organism; R65.20 Severe sepsis without septic shock; J18.9 Pneumonia, unspecified organism; J96.01 Acute respiratory failure with hypoxia; N39.0 Urinary tract infection, site not specified; L89.154 Pressure ulcer of sacral region, stage 4; G82.20 Paraplegia, unspecified; I12.9 Hypertensive chronic kidney disease with stage 1 through stage 4 chronic kidney disease, or unspecified chronic kidney disease; N18.4 Chronic kidney disease, stage 4 (severe); J44.1 Chronic obstructive pulmonary disease with (acute) exacerbation; J44.0 Chronic obstructive pulmonary disease with (acute) lower respiratory infection; E11.9 Type 2 diabetes mellitus without complications; L89.899 Pressure ulcer of other site, unspecified stage; I87.8 Other specified disorders of veins; F17.210 Nicotine dependence, cigarettes, uncomplicated; K59.09 Other constipation; S39.92XS Unspecified injury of lower back, sequela; Z79.4 Long term (current) use of insulin; Z89.411 Acquired absence of right great toe; Z89.421 Acquired absence of other right toe(s); Z99.81 Dependence on supplemental oxygen; B96.5 Pseudomonas (aeruginosa) (mallei) (pseudomallei) as the cause of diseases classified elsewhere; B95.2 Enterococcus as the cause of diseases classified elsewhere; Z74.01 Bed confinement status
CPT/HCPCS: 36415; 71045; 80048; 80053; 80202; 81000; 82962; 83605; 83735; 83880; 84100; 85007; 85025; 85027; 85610; 85730; 86141; 87040; 87070; 87077; 87081; 87088; 87186; 87205; 87804; 94640; 94660; 94760; 96374; 96375

== ENCOUNTER 2017-12-06 02:18 | Inpatient (IN) | payer MEDICARE, MEDICAID ==
[~2017-12-06] VITALS: Ht 195.6 cm; Wt 118.3 kg
[~2017-12-06 02:18] MED LIST changes: +ACET325T49 PO; +ACID1TAB PO; +ASCO-262 PO; +BISA10SU6 RC; +BUDE10.2 IH; +CALC0.253 PO; +CHOL200025 PO; +CIPR500T4 PO; +CYAN10007 PO; +FLUT16SP22 NS; +GABA-486 PO; +GLIP10TA13 PO; +HYDR-3820 PO; +INSU100I23 SQ; +IPRA4AER IH; +MAGN400O7 PO; +MELA1TAB27 PO; +MELO7.5T46 PO; +ONDA4TAB11 SL; +PANT40TA3 PO; +PARO10TA3 PO; +TAMS0.4C2 PO; +ZINC50TA31 PO
[2017-12-06] MEDS ORDERED: NS IV 1000 ML 1,000 ML IV ONE (02:24)
[2017-12-06] MEDS ORDERED: RT-ALBUTEROL SULF 2.5 MG/3 ML PRE-MIX VIAL INH STA (02:24)
--- OUTSIDE RECORDS SUMMARY | 2017-12-06 02:25 | XMS REPORT | Continuity of Care Document ---
Author Author [facility] Organization [facility] Address Unknown Phone Unavailable Allergies Active Description Code Type Severity Reaction Onset Reported/Identified Relationship to Patient Clinical Status Yes PCN (penicillin) [id number] CLASS N/A N/A Yes penicillins 3 Drug N/A N/A Yes Penicillins [id number] Drug Allergy Unknown N/A 05/11/2012 Yes Penicillins [id number] Drug Allergy Mild Hives 11/18/2017 Medications There is no data. Problems Date [...] 4 (severe) ALEXUS LAURA I 07/27/2017 S [id number] Nicotine dependence, cigarettes, with other nicotine-induced disorders 07/27/2017 S [id number] Chronic venous hypertension (idiopathic) with ulcer of bilateral lower extremity 07/27/2017 P [id number] Pressure ulcer of sacral region, stage 4 07/27/2017 S [id number] Pressure ulcer of other site, stage 2 07/27/2017 S [id number] Non-pressure chronic ulcer of right ankle with fat layer exposed 10/17/2017 ALISIA FERNANDEZ [employer] Ot E27.8 OTHER SPECIFIED DISORDERS OF ADRENAL GLA 10/17/2017 ALISIA FERNANDEZ [employer] ARBITR[employer] HEARING OFFICE Ot J90 PLEURAL EFFUSION, NOT ELSEWHERE CLASSIFI 10/17/2017 ALISIA FERNANDEZ [employer] ARBITRATOR HEARING OFFICE Ot K80.20 CALCULUS OF GALLBLADDER W/O CHOLECYSTITI 10/17/2017 ALISIA FERNANDEZ [employer] ARBITRATOR HEARING OFFICE Ot L89.159 PRESSURE ULCER OF SACRAL REGION, UNSPECI 10/17/2017 ALISIA FERNANDEZ [employer] ARBITRATOR HEARING OFFICE Ot N28.1 CYST OF KIDNEY, ACQUIRED 10/17/2017 ALISIA FERNANDEZ LAB[employer] ARBITRATOR HEARING OFFICE Ot R14.0 ABDOMINAL DISTENSION (GASEOUS) 10/17/2017 ALISIA FERNANDEZ [employer] ARBITRATOR HEARING OFFICE Ot R33.9 RETENTION OF URINE, UNSPECIFIED 11/03/2017 ALISIA FERNANDEZ LABOR ARBITRATOR HEARING OFFICE Ot E27.8 OTHER SPECIFIED DISORDERS OF ADRENAL GLA 11/03/2017 ALISIA FERNANDEZ LABOR ARBITRATOR HEARING OFFICE Ot J90 PLEURAL EFFUSION, NOT ELSEWHERE CLASSIFI 11/03/2017 ALISIA FERNANDEZ LAB[employer] ARBITRATOR HEARING OFFICE Ot K80.20 CALCULUS OF GALLBLADDER W/O CHOLECYSTITI 11/03/2017 ALISIA FERNANDEZ LABOR ARBITRATOR HEARING OFFICE Ot L89.159 PRESSURE ULCER OF SACRAL REGION, UNSPECI 11/03/2017 ALISIA FERNANDEZ LAB[employer] ARBITRATOR HEARING OFFICE Ot N28.1 CYST OF KIDNEY, ACQUIRED 11/03/2017 ALISIA FERNANDEZ LAB[employer] ARBITRATOR HEARING OFFICE Ot R14.0 ABDOMINAL DISTENSION (GASEOUS) 11/03/2017 ALISIA FERNANDEZ LAB[employer] ARBITRATOR HEARING OFFICE Ot R33.9 RETENTION OF URINE, UNSPECIFIED 11/15/2017 ALISIA FERNANDEZ LABOR ARBITRATOR HEARING OFFICE Ot E27.8 OTHER SPECIFIED DISORDERS OF ADRENAL GLA 11/15/2017 ALISIA FERNANDEZ LABOR ARBITRATOR HEARING OFFICE Ot J90 PLEURAL EFFUSION, NOT ELSEWHERE CLASSIFI 11/15/2017 ALISIA FERNANDEZ LABOR ARBITRATOR HEARING OFFICE Ot K80.20 CALCULUS OF GALLBLADDER W/O CHOLECYSTITI 11/15/2017 ALISIA FERNANDEZ LABOR ARBITRATOR HEARING OFFICE Ot L89.159 PRESSURE ULCER OF SACRAL REGION, UNSPECI 11/15/2017 ALISIA FERNANDEZ LABOR ARBITRATOR HEARING OFFICE Ot N28.1 CYST OF KIDNEY, ACQUIRED 11/15/2017 ALISIA FERNANDEZ LABOR ARBITRATOR HEARING OFFICE Ot R14.0 ABDOMINAL DISTENSION (GASEOUS) 11/15/2017 ALISIA FERNANDEZ LAB[employer] ARBITRATOR HEARING OFFICE Ot R33.9 RETENTION OF URINE, UNSPECIFIED 11/18/2017 ALISIA FERNANDEZ LABOR ARBITRATOR HEARING OFFICE Ot E27.8 OTHER SPECIFIED DISORDERS OF ADRENAL GLA 11/18/2017 ALISIA FERNANDEZ LABOR ARBITRATOR HEARING OFFICE Ot J90 PLEURAL EFFUSION, NOT ELSEWHERE CLASSIFI 11/18/2017 ALISIA FERNANDEZ LABOR ARBITRATOR HEARING OFFICE Ot K80.20 CALCULUS OF GALLBLADDER W/O CHOLECYSTITI 11/18/2017 ALISIA FERNANDEZ LABOR ARBITRATOR HEARING OFFICE Ot L89.159 PRESSURE ULCER OF SACRAL REGION, UNSPECI 11/18/2017 ALISIA FERNANDEZ LABOR ARBITRATOR HEARING OFFICE Ot N28.1 CYST OF KIDNEY, ACQUIRED 11/18/2017 ALISIA FERNANDEZ LABOR ARBITRATOR HEARING OFFICE Ot R14.0 ABDOMINAL DISTENSION (GASEOUS) 11/18/2017 ALISIA FERNANDEZ LAB[employer] ARBITRATOR HEARING OFFICE Ot R33.9 RETENTION OF URINE, UNSPECIFIED 11/21/2017 CARMENCITA HUTCHISON MD, Ot A41.9 SEPSIS, UNSPECIFIED ORGANISM 11/21/2017 CARMENCITA HUTCHISON MD Ot E11.9 TYPE 2 DIABETES MELLITUS WITHOUT COMPLIC 11/21/2017 CARMENCITA HUTCHISON MD Ot F17.210 NICOTINE DEPENDENCE, CIGARETTES, UNCOMPL 11/21/2017 CARMENCITA HUTCHISON MD Ot G82.20 PARAPLEGIA, UNSPECIFIED 11/21/2017 CARMENCITA HUTCHISON MD, Ot I12.9 HYPERTENSIVE CHRONIC KIDNEY DISEASE W ST 11/21/2017 CARMENCITA HUTCHISON MD, Ot J18.9 PNEUMONIA, UNSPECIFIED ORGANISM 11/21/2017 CARMENCITA HUTCHISON MD, Ot J44.0 CHRONIC OBSTRUCTIVE PULMON DISEASE W ACU 11/21/2017 CARMENCITA HUTCHISON MD, Ot J44.1 CHRONIC OBSTRUCTIVE PULMONARY DISEASE W 11/21/2017 CARMENCITA HUTCHISON MD, Ot J96.01 ACUTE RESPIRATORY FAILURE WITH HYPOXIA 11/21/2017 CARMENCITA HUTCHISON MD, Ot K59.09 OTHER CONSTIPATION 11/21/2017 CARMENCITA HUTCHISON MD Ot L89.154 PRESSURE ULCER OF SACRAL REGION, STAGE 4 11/21/2017 CARMENCITA HUTCHISON MD Ot L89.899 PRESSURE ULCER OF OTHER SITE, UNSPECIFIE 11/21/2017 CARMENCITA HUTCHISON MD, Ot N18.4 CHRONIC KIDNEY DISEASE, STAGE 4 (SEVERE) 11/21/2017 CARMENCITA HUTCHISON MD, Ot N39.0 URINARY TRACT INFECTION, SITE NOT SPECIF 11/21/2017 CARMENCITA HUTCHISON MD, Ot R65.20 SEVERE SEPSIS WITHOUT SEPTIC SHOCK 11/21/2017 CARMENCITA HUTCHISON MD, Ot S39.92XS UNSPECIFIED INJURY OF LOWER BACK, SEQUEL 11/21/2017 CARMENCITA HUTCHISON MD Ot Z66 DO NOT RESUSCITATE 11/21/2017 CARMENCITA HUTCHISON MD, Ot Z79.4 LONG-TERM (CURRENT) USE OF INSULIN 11/21/2017 CARMENCITA HUTCHISON MD, Ot Z89.411 ACQUIRED ABSENCE OF RIGHT GREAT TOE 11/21/2017 CARMENCITA HUTCHISON MD, Ot Z89.421 ACQUIRED ABSENCE OF OTHER RIGHT TOE(S) 11/21/2017 CARMENCITA HUTCHISON MD, Ot Z99.81 DEPENDENCE ON SUPPLEMENTAL OXYGEN 11/21/2017 CARMENCITA HUTCHISON MD, Ot A41.9 SEPSIS, UNSPECIFIED ORGANISM 11/21/2017 CARMENCITA HUTCHISON MD, Ot E11.9 TYPE 2 DIABETES MELLITUS WITHOUT COMPLIC 11/21/2017 CARMENCITA HUTCHISON MD, Ot F17.210 NICOTINE DEPENDENCE, CIGARETTES, UNCOMPL 11/21/2017 CARMENCITA UHTCHISON MD, Ot G82.20 PARAPLEGIA, UNSPECIFIED 11/21/2017 CARMENCITA HUTCHISON MD, Ot I12.9 HYPERTENSIVE CHRONIC KIDNEY DISEASE W ST 11/21/2017 CARMENCITA HUTCHISON MD, Ot J18.9 PNEUMONIA, UNSPECIFIED ORGANISM 11/21/2017 CARMENCITA HUTCHISON MD, Ot J44.0 CHRONIC OBSTRUCTIVE PULMON DISEASE W ACU 11/21/2017 CARMENCITA HUTCHISON MD, Ot J44.1 CHRONIC OBSTRUCTIVE PULMONARY DISEASE W 11/21/2017 CARMENCITA HUTCHISON MD, Ot J96.01 ACUTE RESPIRATORY FAILURE WITH HYPOXIA 11/21/2017 CARMENCITA HUTCHISON MD, Ot K59.09 OTHER CONSTIPATION 11/21/2017 CARMENCITA HUTCHISON MD Ot L89.154 PRESSURE ULCER OF SACRAL REGION, STAGE 4 11/21/2017 CARMENCITA HUTCHISON MD, Ot L89.899 PRESSURE ULCER OF OTHER SITE, UNSPECIFIE 11/21/2017 CARMENCITA HUTCHISON MD, Ot N18.4 CHRONIC KIDNEY DISEASE, STAGE 4 (SEVERE) 11/21/2017 CARMENCITA HUTCHISON MD, Ot N39.0 URINARY TRACT INFECTION, SITE NOT SPECIF 11/21/2017 CARMENCITA HUTCHISON MD, Ot R65.20 SEVERE SEPSIS WITHOUT SEPTIC SHOCK 11/21/2017 CARMENCITA HUTCHISON MD, Ot S39.92XS UNSPECIFIED INJURY OF LOWER BACK, SEQUEL 11/21/2017 CARMENCITA HUTCHISON MD Ot Z66 DO NOT RESUSCITATE 11/21/2017 CARMENCITA HUTCHISON MD, Ot Z79.4 LONG-TERM (CURRENT) USE OF INSULIN 11/21/2017 CARMENCITA HUTCHISON MD, Ot Z89.411 ACQUIRED ABSENCE OF RIGHT GREAT TOE 11/21/2017 CARMENCITA HUTCHISON MD, Ot Z89.421 ACQUIRED ABSENCE OF OTHER RIGHT TOE(S) 11/21/2017 CARMENCITA HUTCHISON MD, Ot Z99.81 DEPENDENCE ON SUPPLEMENTAL OXYGEN 11/22/2017 CARMENCITA HUTCHISON MD, Ot A41.9 SEPSIS, UNSPECIFIED ORGANISM 11/22/2017 CARMENCITA HUTCHISON MD, Ot E11.9 TYPE 2 DIABETES MELLITUS WITHOUT COMPLIC 11/22/2017 CARMENCITA HUTCHISON MD, Ot F17.210 NICOTINE DEPENDENCE, CIGARETTES, UNCOMPL 11/22/2017 CARMENCITA HUTCHISON MD Ot G82.20 PARAPLEGIA, UNSPECIFIED 11/22/2017 CARMENCITA HUTCHISON MD, Ot I12.9 HYPERTENSIVE CHRONIC KIDNEY DISEASE W ST 11/22/2017 CARMENCITA HUTCHISON MD, Ot J18.9 PNEUMONIA, UNSPECIFIED ORGANISM 11/22/2017 CARMENCITA HUTCHISON MD, Ot J44.0 CHRONIC OBSTRUCTIVE PULMON DISEASE W ACU 11/22/2017 CARMENCITA HUTCHISON MD, Ot J44.1 CHRONIC OBSTRUCTIVE PULMONARY DISEASE W 11/22/2017 CARMENCITA HUTCHISON MD, Ot J96.01 ACUTE RESPIRATORY FAILURE WITH HYPOXIA 11/22/2017 CARMENCITA HUTCHISON MD, Ot K59.09 OTHER CONSTIPATION 11/22/2017 CARMENCITA HUTCHISON MD Ot L89.154 PRESSURE ULCER OF SACRAL REGION, STAGE 4 11/22/2017 CARMENCITA HUTCHISON MD, Ot L89.899 PRESSURE ULCER OF OTHER SITE, UNSPECIFIE 11/22/2017 CARMENCITA HUTCHISON MD, Ot N18.4 CHRONIC KIDNEY DISEASE, STAGE 4 (SEVERE) 11/22/2017 CARMENCITA HUTCHISON MD, Ot N39.0 URINARY TRACT INFECTION, SITE NOT SPECIF 11/22/2017 CARMENCITA HUTCHISON MD, Ot R65.20 SEVERE SEPSIS WITHOUT SEPTIC SHOCK 11/22/2017 CARMENCITA HUTCHISON MD, Ot S39.92XS UNSPECIFIED INJURY OF LOWER BACK, SEQUEL 11/22/2017 CARMENCITA HUTCHISON MD, Ot Z66 DO NOT RESUSCITATE 11/22/2017 CARMENCITA HUTCHISON MD, Ot Z79.4 LONG-TERM (CURRENT) USE OF INSULIN 11/22/2017 CARMENCITA HUTCHISON MD, Ot Z89.411 ACQUIRED ABSENCE OF RIGHT GREAT TOE 11/22/2017 CARMENCITA HUTCHISON MD, Ot Z89.421 ACQUIRED ABSENCE OF OTHER RIGHT TOE(S) 11/22/2017 CARMENCITA HUTCHISON MD Ot Z99.81 DEPENDENCE ON SUPPLEMENTAL OXYGEN 11/23/2017 CARMENCITA HUTCHISON MD, Ot A41.9 SEPSIS, UNSPECIFIED ORGANISM 11/23/2017 CARMENCITA HUTCHISON MD, Ot E11.9 TYPE 2 DIABETES MELLITUS WITHOUT COMPLIC 11/23/2017 CARMENCITA HUTCHISON MD, Ot F17.210 NICOTINE DEPENDENCE, CIGARETTES, UNCOMPL 11/23/2017 CARMENCITA HUTCHISON MD Ot G82.20 PARAPLEGIA, UNSPECIFIED 11/23/2017 CARMENCITA HUTCHISON MD, Ot I12.9 HYPERTENSIVE CHRONIC KIDNEY DISEASE W ST 11/23/2017 CARMENCITA HUTCHISON MD, Ot J18.9 PNEUMONIA, UNSPECIFIED ORGANISM 11/23/2017 CARMENCITA HUTCHISON MD, Ot J44.0 CHRONIC OBSTRUCTIVE PULMON DISEASE W ACU 11/23/2017 CARMENCITA HUTCHISON MD, Ot J44.1 CHRONIC OBSTRUCTIVE PULMONARY DISEASE W 11/23/2017 CARMENCITA HUTCHISON MD, Ot J96.01 ACUTE RESPIRATORY FAILURE WITH HYPOXIA 11/23/2017 CARMENCITA HUTCHISON MD, Ot K59.09 OTHER CONSTIPATION 11/23/2017 CARMENCITA HUTCHISON MD Ot L89.154 PRESSURE ULCER OF SACRAL REGION, STAGE 4 11/23/2017 CARMENCITA HUTCHISON MD, Ot L89.899 PRESSURE ULCER OF OTHER SITE, UNSPECIFIE 11/23/2017 CARMENCITA HUTCHISON MD, Ot N18.4 CHRONIC KIDNEY DISEASE, STAGE 4 (SEVERE) 11/23/2017 CARMENCITA HUTCHISON MD, Ot N39.0 URINARY TRACT INFECTION, SITE NOT SPECIF 11/23/2017 CARMENCITA HUTCHISON MD, Ot R65.20 SEVERE SEPSIS WITHOUT SEPTIC SHOCK 11/23/2017 CARMENCITA HUTCHISON MD, Ot S39.92XS UNSPECIFIED INJURY OF LOWER BACK, SEQUEL 11/23/2017 CARMENCITA HUTCHISON MD, Ot Z66 DO NOT RESUSCITATE 11/23/2017 CARMENCITA HUTCHISON MD, Ot Z79.4 LONG-TERM (CURRENT) USE OF INSULIN 11/23/2017 CARMENCITA HUTCHISON MD, Ot Z89.411 ACQUIRED ABSENCE OF RIGHT GREAT TOE 11/23/2017 CARMENCITA HUTCHISON MD, Ot Z89.421 ACQUIRED ABSENCE OF OTHER RIGHT TOE(S) 11/23/2017 CARMENCITA HUTCHISON MD Ot Z99.81 DEPENDENCE ON SUPPLEMENTAL OXYGEN 11/23/2017 CARMENCITA HUTCHISON MD, Ot A41.9 SEPSIS, UNSPECIFIED ORGANISM 11/23/2017 CARMENCITA HUTCHISON MD, Ot B95.2 ENTEROCOCCUS THE CAUSE OF DISEASES CL 11/23/2017 CARMENCITA HUTCHISON MD, Ot B96.5 PSEUDOMONAS (MALLEI) CAUSING DISEASES CL 11/23/2017 CARMENCITA HUTCHISON MD Ot E11.9 TYPE 2 DIABETES MELLITUS WITHOUT COMPLIC 11/23/2017 CARMENCITA HUTCHISON MD, Ot F17.210 NICOTINE DEPENDENCE, CIGARETTES, UNCOMPL 11/23/2017 CARMENCITA HUTCHISON MD, Ot G82.20 PARAPLEGIA, UNSPECIFIED 11/23/2017 CARMENCITA HUTCHISON MD, Ot I12.9 HYPERTENSIVE CHRONIC KIDNEY DISEASE W ST 11/23/2017 CARMENCITA HUTCHISON MD, Ot I87.8 OTHER SPECIFIED DISORDERS OF VEINS 11/23/2017 CARMENCITA HUTCHISON MD, Ot J18.9 PNEUMONIA, UNSPECIFIED ORGANISM 11/23/2017 CARMENCITA HUTCHISON MD, Ot J44.0 CHRONIC OBSTRUCTIVE PULMON DISEASE W ACU 11/23/2017 CARMENCITA HUTCHISON MD, Ot J44.1 CHRONIC OBSTRUCTIVE PULMONARY DISEASE W 11/23/2017 CARMENCITA HUTCHISON MD, Ot J96.01 ACUTE RESPIRATORY FAILURE WITH HYPOXIA 11/23/2017 CARMENCITA HUTCHISON MD, Ot K59.09 OTHER CONSTIPATION 11/23/2017 CARMENCITA HUTCHISON MD, Ot L89.154 PRESSURE ULCER OF SACRAL REGION, STAGE 4 11/23/2017 CARMENCITA HUTCHISON MD, Ot L89.899 PRESSURE ULCER OF OTHER SITE, UNSPECIFIE 11/23/2017 CARMENCITA HUTCHISON MD, Ot N18.4 CHRONIC KIDNEY DISEASE, STAGE 4 (SEVERE) 11/23/2017 CARMENCITA HUTCHISON MD, Ot N39.0 URINARY TRACT INFECTION, SITE NOT SPECIF 11/23/2017 CARMENCITA HUTCHISON MD, Ot R65.20 SEVERE SEPSIS WITHOUT SEPTIC SHOCK 11/23/2017 CARMENCITA HUTCHISON MD, Ot S39.92XS UNSPECIFIED INJURY OF LOWER BACK, SEQUEL 11/23/2017 CARMENCITA HUTCHISON MD, Ot T83.511A I/I REACT D/T INDWELLING URETHRAL CATHET 11/23/2017 CARMENCITA HUTCHISON MD, Ot Z66 DO NOT RESUSCITATE 11/23/2017 CARMENCITA HUTCHISON MD, Ot Z74.01 BED CONFINEMENT STATUS 11/23/2017 CARMENCITA HUTCHISON MD, Ot Z79.4 LONG-TERM (CURRENT) USE OF INSULIN 11/23/2017 CARMENCITA HUTCHISON MD Ot Z89.411 ACQUIRED ABSENCE OF RIGHT GREAT TOE 11/23/2017 CARMENCITA HUTCHISON MD Ot Z89.421 ACQUIRED ABSENCE OF OTHER RIGHT TOE(S) 11/23/2017 CARMENCITA HUTCHISON MD Ot Z99.81 DEPENDENCE ON SUPPLEMENTAL OXYGEN Procedures Code [place] [address] Office or other outpatient visit for the [...] NRG Manual blood lymphocytes/100 leukocytes 21 % NRG Manual eosinophils/100 leukocytes in nose 5 % NRG Blood erythrocyte morphology finding identification NORMAL NRG PT panel in platelet poor plasma by [...] or plasma urea nitrogen/creatinine mass ratio 17 NRG Serum or plasma creatinine measurement with calculation of estimated glomerular filtration rate 27 NRG Serum or plasma glucose measurement (mass/volume) 178 [...] 11/18/17 07:55 BNP level 1001.0 pg/mL <100.0 Bacterial blood culture - 11/18/17 07:55 Bacterial blood culture NG NRG Complete urinalysis with reflex to culture - [...] urinalysis with reflex to culture YES NRG Bacterial urine culture - 11/18/17 08:00 Bacterial urine culture [id number] NRG COLONY COUNT >100,000/ML NR FTX;REPORTABLE SENSITIVITY REPORTED 11/20 07:00 [facility] Bacterial susceptibility panel - 11/18/17 08:00 Gentamicin susceptibility test by minimum inhibitory concentration S NR Vancomycin susceptibility test by minimum inhibitory concentration 1 NR Levofloxacin susceptibility test by minimum inhibitory concentration 2 [facility] Tetracycline susceptibility test by minimum inhibitory concentration >= NR Ampicillin susceptibility test by minimum inhibitory concentration < = NR Nitrofurantoin susceptibility test by minimum inhibitory concentration <= NR Linezolid susceptibility test by minimum inhibitory concentration 2 [facility] Bacterial susceptibility panel - 11/18/17 08:00 Gentamicin susceptibility test by minimum inhibitory concentration < = NR Tobramycin susceptibility test by minimum inhibitory concentration < = NR Piperacillin/tazobactam susceptibility test by minimum inhibitory concentration S [facility] Ciprofloxacin susceptibility test by minimum inhibitory concentration >= NR Meropenem susceptibility test by minimum inhibitory concentration 4 NR Cefepime susceptibility test by minimum inhibitory concentration 2 NR Influenza virus A and B antigen detection - 11/18/17 08:20 FLU RESULT NEGATIVE FOR INFLUENZA A AND B ANTIGENS BY IA [facility] Bacterial blood culture - 11/18/17 08:20 Bacterial blood culture NG [facility] Gram stain microscopy - 11/18/17 08:21 GRAM STAIN RESULT RARE GRAM POSITIVE COCCI [facility] Bacteria identification in wound by culture - 11/18/17 08:21 Bacteria identification in wound by culture [id number] [facility] FREE TEXT EXTERNAL PSEUDOMONAS SENSITIVITY REPORTED ON NRG QUANTITY OF GROWTH Moderate Growth NRG FREE TEXT ENTRY 2 URINE CULTURE [id number] NRG Methicillin resistant Staphylococcus aureus (MRSA) screening culture - 11:13 Methicillin resistant Staphylococcus aureus (MRSA) screening culture NEG NRG Capillary blood glucose measurement by glucometer (mass/volume) - 11/18/17 14: 17 Capillary blood glucose measurement by glucometer (mass/volume) 260 mg/dL 70-110 Capillary blood glucose measurement by glucometer (mass/volume) - 11/18/17 16: 45 Capillary blood glucose measurement by glucometer (mass/volume) 252 mg/dL 70-110 Capillary blood glucose measurement by glucometer (mass/volume) - 11/18/17 20: 40 Capillary blood glucose measurement by glucometer (mass/volume) 196 mg/dL 70-110 Complete blood count (CBC) with automated white blood cell (WBC) differential - 11/19/17 03:30 Blood leukocytes automated count (number/volume) 8.4 10*3/uL 4.3-11.0 Blood erythrocytes automated count (number/volume) 4.40 10*6/uL 4.35-5.85 Venous blood hemoglobin measurement (mass/volume) 11.4 g/dL 13.3-17.7 Blood hematocrit (volume fraction) 36 % 40-54 Automated erythrocyte mean corpuscular volume 81 [foz_us] 80-99 Automated erythrocyte mean corpuscular hemoglobin (mass per erythrocyte) 26 pg 25-34 Automated erythrocyte mean corpuscular hemoglobin concentration measurement ( mass/volume) 32 g/dL 32-36 Automated erythrocyte distribution width ratio 15.9 % 10.0-14.5 Automated blood platelet count (count/volume) 185 10*3/uL 130-400 Automated blood platelet mean volume measurement 9.3 [foz_us] 7.4-10.4 Automated blood neutrophils/100 leukocytes 84 % 42-75 Automated blood lymphocytes/100 leukocytes 8 % 12-44 Blood monocytes/100 leukocytes 8 % 0-12 Automated blood eosinophils/100 leukocytes 0 % 0-10 Automated blood basophils/100 leukocytes 0 % 0-10 Blood neutrophils automated count (number/volume) 7.0 10*3 1.8-7.8 Blood lymphocytes automated count (number/volume) 0.7 10*3 1.0-4.0 Blood monocytes automated count (number/volume) 0.7 10*3 0.0-1.0 Automated eosinophil count 0.0 10*3/uL 0.0-0.3 Automated blood basophil count (count/volume) 0.0 10*3/uL 0.0-0.1 Comprehensive metabolic panel - 11/19/17 03:30 Serum or plasma sodium measurement (moles/volume) 140 mmol/L 135-145 Serum or plasma potassium measurement (moles/volume) 4.3 mmol/L 3.6-5.0 Serum or plasma chloride measurement (moles/volume) 107 mmol/L 98-107 Carbon dioxide 25 mmol/L 21-32 Serum or plasma anion gap determination (moles/volume) 8 mmol/L 5-14 Serum or plasma urea nitrogen measurement (mass/volume) 41 mg/dL 7-18 Serum or plasma creatinine measurement (mass/volume) 2.34 mg/dL 0.60-1.30 Serum or plasma urea nitrogen/creatinine mass ratio 18 NRG Serum or plasma creatinine measurement with calculation of estimated glomerular filtration rate 27 NRG Serum or plasma glucose measurement (mass/volume) 128 mg/dL 70-105 Serum or plasma calcium measurement (mass/volume) 8.8 mg/dL 8.5-10.1 Serum or plasma total bilirubin measurement (mass/volume) 0.5 mg/dL 0.1-1.0 Serum or plasma alkaline phosphatase measurement (enzymatic activity/volume) 55 U/L 40-136 Serum or plasma aspartate aminotransferase measurement (enzymatic activity/ volume) 13 U/L 5-34 Serum or plasma alanine aminotransferase measurement (enzymatic activity/volume ) < U/L 0-55 Serum or plasma protein measurement (mass/volume) 6.7 g/dL 6.4-8.2 Serum or plasma albumin measurement (mass/volume) 3.3 g/dL 3.2-4.5 Serum or plasma phosphate measurement (mass/volume) - 11/19/17 03:30 Serum or plasma phosphate measurement (mass/volume) 4.0 mg/dL 2.3-4.7 Magnesium - 11/19/17 03:30 Magnesium 1.2 mg/dL 1.8-2.4 Capillary blood glucose measurement by glucometer (mass/volume) - 11/19/17 11: 02 Capillary blood glucose measurement by glucometer (mass/volume) 95 mg/dL 70-110 Capillary blood glucose measurement by glucometer (mass/volume) - 11/19/17 16: 52 Capillary blood glucose measurement by glucometer (mass/volume) 141 mg/dL 70-110 Capillary blood glucose measurement by glucometer (mass/volume) - 11/19/17 20: 24 Capillary blood glucose measurement by glucometer (mass/volume) 119 mg/dL 70-110 Capillary blood glucose measurement by glucometer (mass/volume) - 11/20/17 05: 15 Capillary blood glucose measurement by glucometer (mass/volume) 102 mg/dL 70-110 Complete blood count (CBC) with automated white blood cell (WBC) differential - 11/20/17 05:35 Blood leukocytes automated count (number/volume) 13.6 10*3/uL 4.3-11.0 Blood erythrocytes automated count (number/volume) 4.27 10*6/uL 4.35-5.85 Venous blood hemoglobin measurement (mass/volume) 11.2 g/dL 13.3-17.7 Blood hematocrit (volume fraction) 35 % 40-54 Automated erythrocyte mean corpuscular volume 81 [foz_us] 80-99 Automated erythrocyte mean corpuscular hemoglobin (mass per erythrocyte) 26 pg 25-34 Automated erythrocyte mean corpuscular hemoglobin concentration measurement ( mass/volume) 32 g/dL 32-36 Automated erythrocyte distribution width ratio 16.1 % 10.0-14.5 Automated blood platelet count (count/volume) 198 10*3/uL 130-400 Automated blood platelet mean volume measurement 9.4 [foz_us] 7.4-10.4 Automated blood neutrophils/100 leukocytes 82 % 42-75 Automated blood lymphocytes/100 leukocytes 8 % 12-44 Blood monocytes/100 leukocytes 9 % 0-12 Automated blood eosinophils/100 leukocytes 0 % 0-10 Automated blood basophils/100 leukocytes 0 % 0-10 Blood neutrophils automated count (number/volume) 11.2 10*3 1.8-7.8 Blood lymphocytes automated count (number/volume) 1.1 10*3 1.0-4.0 Blood monocytes automated count (number/volume) 1.3 10*3 0.0-1.0 Automated eosinophil count 0.1 10*3/uL 0.0-0.3 Automated blood basophil count (count/volume) 0.0 10*3/uL 0.0-0.1 Whole blood basic metabolic panel - 11/20/17 05:35 Serum or plasma sodium measurement (moles/volume) 142 mmol/L 135-145 Serum or plasma potassium measurement (moles/volume) 3.8 mmol/L 3.6-5.0 Serum or plasma chloride measurement (moles/volume) 107 mmol/L 98-107 Carbon dioxide 22 mmol/L 21-32 Serum or plasma anion gap determination (moles/volume) 13 mmol/L 5-14 Serum or plasma urea nitrogen measurement (mass/volume) 41 mg/dL 7-18 Serum or plasma creatinine measurement (mass/volume) 2.22 mg/dL 0.60-1.30 Serum or plasma urea nitrogen/creatinine mass ratio 18 NRG Serum or plasma creatinine measurement with calculation of estimated glomerular filtration rate 29 NRG Serum or plasma glucose measurement (mass/volume) 90 mg/dL 70-105 Serum or plasma calcium measurement (mass/volume) 8.9 mg/dL 8.5-10.1 Vancomycin trough - 11/20/17 10:23 Vancomycin trough 14.2 ug/mL 10.0-20.0 Capillary blood glucose measurement by glucometer (mass/volume) - 11/20/17 11: 42 Capillary blood glucose measurement by glucometer (mass/volume) 91 mg/dL 70-110 Capillary blood glucose measurement by glucometer (mass/volume) - 11/20/17 15: 59 Capillary blood glucose measurement by glucometer (mass/volume) 91 mg/dL 70-110 Capillary blood glucose measurement by glucometer (mass/volume) - 11/20/17 20: 40 Capillary blood glucose measurement by glucometer (mass/volume) 149 mg/dL 70-110 Complete blood count (CBC) with automated white blood cell (WBC) differential - 11/21/17 05:20 Blood leukocytes automated count (number/volume) 8.1 10*3/uL 4.3-11.0 Blood erythrocytes automated count (number/volume) 3.97 10*6/uL 4.35-5.85 Venous blood hemoglobin measurement (mass/volume) 10.2 g/dL 13.3-17.7 Blood hematocrit (volume fraction) 32 % 40-54 Automated erythrocyte mean corpuscular volume 81 [foz_us] 80-99 Automated erythrocyte mean corpuscular hemoglobin (mass per erythrocyte) 26 pg 25-34 Automated erythrocyte mean corpuscular hemoglobin concentration measurement ( mass/volume) 32 g/dL 32-36 Automated erythrocyte distribution width ratio 15.3 % 10.0-14.5 Automated blood platelet count (count/volume) 193 10*3/uL 130-400 Automated blood platelet mean volume measurement 9.6 [foz_us] 7.4-10.4 Automated blood neutrophils/100 leukocytes 69 % 42-75 Automated blood lymphocytes/100 leukocytes 17 % 12-44 Blood monocytes/100 leukocytes 13 % 0-12 Automated blood eosinophils/100 leukocytes 1 % 0-10 Automated blood basophils/100 leukocytes 0 % 0-10 Blood neutrophils automated count (number/volume) 5.6 10*3 1.8-7.8 Blood lymphocytes automated count (number/volume) 1.4 10*3 1.0-4.0 Blood monocytes automated count (number/volume) 1.0 10*3 0.0-1.0 Automated eosinophil count 0.1 10*3/uL 0.0-0.3 Automated blood basophil count (count/volume) 0.0 10*3/uL 0.0-0.1 Whole blood basic metabolic panel - 11/21/17 05:20 Serum or plasma sodium measurement (moles/volume) 138 mmol/L 135-145 Serum or plasma potassium measurement (moles/volume) 3.8 mmol/L 3.6-5.0 Serum or plasma chloride measurement (moles/volume) 105 mmol/L 98-107 Carbon dioxide 24 mmol/L 21-32 Serum or plasma anion gap determination (moles/volume) 9 mmol/L 5-14 Serum or plasma urea nitrogen measurement (mass/volume) 38 mg/dL 7-18 Serum or plasma creatinine measurement (mass/volume) 1.91 mg/dL 0.60-1.30 Serum or plasma urea nitrogen/creatinine mass ratio 20 NRG Serum or plasma creatinine measurement with calculation of estimated glomerular filtration rate 35 NRG Serum or plasma glucose measurement (mass/volume) 79 mg/dL 70-105 Serum or plasma calcium measurement (mass/volume) 8.7 mg/dL 8.5-10.1 Capillary blood glucose measurement by glucometer (mass/volume) - 11/21/17 05: 27 Capillary blood glucose measurement by glucometer (mass/volume) 93 mg/dL 70-110 Capillary blood glucose measurement by glucometer (mass/volume) - 11/21/17 11: 13 Capillary blood glucose measurement by glucometer (mass/volume) 102 mg/dL 70-110 Capillary blood glucose measurement by glucometer (mass/volume) - 11/21/17 15: 47 Capillary blood glucose measurement by glucometer (mass/volume) 149 mg/dL 70-110 Capillary blood glucose measurement by glucometer (mass/volume) - 11/21/17 20: 29 Capillary blood glucose measurement by glucometer (mass/volume) 146 mg/dL 70-110 Complete blood count (CBC) with automated white blood cell (WBC) differential - 11/22/17 03:15 Blood leukocytes automated count (number/volume) 8.3 10*3/uL 4.3-11.0 Blood erythrocytes automated count (number/volume) 4.23 10*6/uL 4.35-5.85 Venous blood hemoglobin measurement (mass/volume) 11.1 g/dL 13.3-17.7 Blood hematocrit (volume fraction) 34 % 40-54 Automated erythrocyte mean corpuscular volume 80 [foz_us] 80-99 Automated erythrocyte mean corpuscular hemoglobin (mass per erythrocyte) 26 pg 25-34 Automated erythrocyte mean corpuscular hemoglobin concentration measurement ( mass/volume) 33 g/dL 32-36 Automated erythrocyte distribution width ratio 15.2 % 10.0-14.5 Automated blood platelet count (count/volume) 211 10*3/uL 130-400 Automated blood platelet mean volume measurement 9.6 [foz_us] 7.4-10.4 Automated blood neutrophils/100 leukocytes 62 % 42-75 Automated blood lymphocytes/100 leukocytes 21 % 12-44 Blood monocytes/100 leukocytes 15 % 0-12 Automated blood eosinophils/100 leukocytes 2 % 0-10 Automated blood basophils/100 leukocytes 1 % 0-10 Blood neutrophils automated count (number/volume) 5.1 10*3 1.8-7.8 Blood lymphocytes automated count (number/volume) 1.8 10*3 1.0-4.0 Blood monocytes automated count (number/volume) 1.2 10*3 0.0-1.0 Automated eosinophil count 0.2 10*3/uL 0.0-0.3 Automated blood basophil count (count/volume) 0.1 10*3/uL 0.0-0.1 Whole blood basic metabolic panel - 11/22/17 03:15 Serum or plasma sodium measurement (moles/volume) 142 mmol/L 135-145 Serum or plasma potassium measurement (moles/volume) 3.9 mmol/L 3.6-5.0 Serum or plasma chloride measurement (moles/volume) 108 mmol/L 98-107 Carbon dioxide 22 mmol/L 21-32 Serum or plasma anion gap determination (moles/volume) 12 mmol/L 5-14 Serum or plasma urea nitrogen measurement (mass/volume) 33 mg/dL 7-18 Serum or plasma creatinine measurement (mass/volume) 1.90 mg/dL 0.60-1.30 Serum or plasma urea nitrogen/creatinine mass ratio 17 NRG Serum or plasma creatinine measurement with calculation of estimated glomerular filtration rate 35 NRG Serum or plasma glucose measurement (mass/volume) 106 mg/dL 70-105 Serum or plasma calcium measurement (mass/volume) 8.9 mg/dL 8.5-10.1 Capillary blood glucose measurement by glucometer (mass/volume) - 11/22/17 11: 05 Capillary blood glucose measurement by glucometer (mass/volume) 191 mg/dL 70-110 Capillary blood glucose measurement by glucometer (mass/volume) - 11/22/17 16: 12 Capillary blood glucose measurement by glucometer (mass/volume) 87 mg/dL 70-110 Capillary blood glucose measurement by glucometer (mass/volume) - 11/22/17 20: 54 Capillary blood glucose measurement by glucometer (mass/volume) 166 mg/dL 70-110 Complete blood count (CBC) with automated white blood cell (WBC) differential - 11/23/17 05:31 Blood leukocytes automated count (number/volume) 8.6 10*3/uL 4.3-11.0 Blood erythrocytes automated count (number/volume) 4.46 10*6/uL 4.35-5.85 Venous blood hemoglobin measurement (mass/volume) 11.7 g/dL 13.3-17.7 Blood hematocrit (volume fraction) 36 % 40-54 Automated erythrocyte mean corpuscular volume 80 [foz_us] 80-99 Automated erythrocyte mean corpuscular hemoglobin (mass per erythrocyte) 26 pg 25-34 Automated erythrocyte mean corpuscular hemoglobin concentration measurement ( mass/volume) 33 g/dL 32-36 Automated erythrocyte distribution width ratio 15.1 % 10.0-14.5 Automated blood platelet count (count/volume) 246 10*3/uL 130-400 Automated blood platelet mean volume measurement 9.4 [foz_us] 7.4-10.4 Automated blood neutrophils/100 leukocytes 64 % 42-75 Automated blood lymphocytes/100 leukocytes 19 % 12-44 Blood monocytes/100 leukocytes 15 % 0-12 Automated blood eosinophils/100 leukocytes 3 % 0-10 Automated blood basophils/100 leukocytes 1 % 0-10 Blood neutrophils automated count (number/volume) 5.5 10*3 1.8-7.8 Blood lymphocytes automated count (number/volume) 1.6 10*3 1.0-4.0 Blood monocytes automated count (number/volume) 1.3 10*3 0.0-1.0 Automated eosinophil count 0.2 10*3/uL 0.0-0.3 Automated blood basophil count (count/volume) 0.1 10*3/uL 0.0-0.1 Whole blood basic metabolic panel - 11/23/17 05:31 Serum or plasma sodium measurement (moles/volume) 142 mmol/L 135-145 Serum or plasma potassium measurement (moles/volume) 3.9 mmol/L 3.6-5.0 Serum or plasma chloride measurement (moles/volume) 107 mmol/L 98-107 Carbon dioxide 24 mmol/L 21-32 Serum or plasma anion gap determination (moles/volume) 11 mmol/L 5-14 Serum or plasma urea nitrogen measurement (mass/volume) 29 mg/dL 7-18 Serum or plasma creatinine measurement (mass/volume) 1.78 mg/dL 0.60-1.30 Serum or plasma urea nitrogen/creatinine mass ratio 16 NRG Serum or plasma creatinine measurement with calculation of estimated glomerular filtration rate 38 NRG Serum or plasma glucose measurement (mass/volume) 103 mg/dL 70-105 Serum or plasma calcium measurement (mass/volume) 9.2 mg/dL 8.5-10.1 Capillary blood glucose measurement by glucometer (mass/volume) - 11/23/17 05: 54 Capillary blood glucose measurement by glucometer (mass/volume) 108 mg/dL 70-110 Capillary blood glucose measurement by glucometer (mass/volume) - 11/23/17 11: 12 Capillary blood glucose measurement by glucometer (mass/volume) 84 mg/dL 70-110 Encounters ACCT No. Visit Date/Time Discharge Status Pt. Type Provider Facility Loc./Unit Complaint [id number] 06/22/2017 09:39:07 06/22/2017 23:59:59 CLS Outpatient Magdy Harris [id number] 12/28/2016 11:03:17 12/28/2016 23:59:59 CLS Outpatient Elder Jane [id number] 03/23/2015 22:06:00 03/23/2015 23:59:59 CLS Outpatient Magdy Harris [id number] 08/17/2014 18:33:51 08/17/2014 23:59:59 CLS Outpatient Magdy Harris [id number] 06/16/2014 12:15:27 06/16/2014 23:59:59 CLS Outpatient Carlie Vasques [id number] 06/16/2014 12:05:57 06/16/2014 23:59:59 CLS Outpatient Elder Jane [id number] 05/28/2014 10:15:40 05/28/2014 23:59:59 CLS Outpatient Elder Jane [id number] 11/18/2017 09:06:00 11/23/2017 16:50:00 DIS Inpatient FOSTER OBRIEN, CARMENCITA Wilkerson [facility] 4TH SEVERE SEPSIS,RESP FAILURE, PNEUMONIA,UTI [id number] 10/13/2017 09:46:00 10/13/2017 23:59:59 CLS Outpatient ALISIA FERNANDEZ APRN [facility] RAD 6 MO F/U [id number] 12/06/2017 02:20:00 ACT Emergency THERESE DUPREE MD [facility] ER SOB [id number] 07/18/2012 10:30:00 Document Registration [id number] 06/22/2012 11:55:00 Document Registration [id number] 06/15/2012 11:45:00 Document Registration [id number] 11/29/2017 08:06:50 Document Registration [id number] 11/15/2017 08:47:22 Document Registration [id number] 11/08/2017 10:05:20 Document Registration [id number] 10/31/2017 08:43:38 Document Registration [id number] 10/17/2017 09:03:12 Document Registration [id number] 10/02/2017 09:40:16 Document Registration [id number] 09/25/2017 09:30:30 Document Registration [id number] 09/19/2017 09:06:04 Document Registration [id number] 09/11/2017 09:21:03 Document Registration [id number] 08/29/2017 10:32:35 Document Registration [id number] 08/21/2017 09:32:38 Document Registration [id number] 08/10/2017 10:19:01 Document Registration [id number] 08/08/2017 11:18:21 Document Registration [id number] 07/26/2017 08:57:43 Document Registration [id number] 07/17/2017 10:14:40 Document Registration [id number] 06/29/2017 15:08:16 Document Registration [id number] 06/29/2017 15:02:40 Document Registration [id number] 06/15/2017 11:41:11 Document Registration [id number] 06/09/2017 10:32:42 Document Registration [id number] 06/07/2017 08:50:33 Document Registration [id number] 06/01/2017 11:51:47 Document Registration [id number] 05/25/2017 10:57:54 Document Registration [id number] 05/24/2017 09:13:38 Document Registration [id number] 05/18/2017 11:10:48 Document Registration [id number] 05/16/2017 09:04:49 Document Registration [id number] 05/11/2017 08:52:19 Document Registration [id number] 04/16/2017 09:58:17 Document Registration [id number] 04/10/2017 21:33:41 Document Registration [id number] 04/10/2017 11:48:56 Document Registration [id number] 04/06/2017 09:05:08 Document Registration [id number] 04/04/2017 22:41:46 Document Registration [id number] 03/30/2017 19:13:52 Document Registration [id number] 03/30/2017 19:03:38 Document Registration [id number] 03/30/2017 18:54:41 Document Registration [id number] 03/30/2017 18:54:40 Document Registration [id number] 03/30/2017 18:54:39 Document Registration [id number] 03/30/2017 18:54:32 Document Registration [id number] 03/30/2017 10:31:21 Document Registration [id number] 06/23/2016 08:18:15 Document Registration [id number] 10/24/2017 11:16:01 10/24/2017 23:59:59 DIS Outpatient JIM ALISIA D [facility] [id number] 10/24/2017 10:48:40 10/24/2017 23:59:59 DIS Outpatient ALISIA FERNANDEZ [facility] [id number] 07/10/2017 11:37:30 07/10/2017 23:59:59 DIS Outpatient JIM ALISIA D [facility] [id number] 07/10/2017 10:30:00 07/10/2017 23:59:59 DIS Outpatient ALISIA FERNANDEZ [facility] [id number] 05/08/2017 10:00:00 05/08/2017 23:59:59 DIS Outpatient ALISIA FERNANDEZ [facility] [id number] 04/10/2017 11:21:00 04/10/2017 23:59:59 DIS Outpatient JASON JOSE [facility] [id number] 04/04/2017 10:00:00 04/04/2017 23:59:59 DIS Outpatient [facility] [id number] 03/30/2017 23:00:00 03/30/2017 23:59:59 DIS Outpatient JOSE GOMEZ [facility] [id number] 03/30/2017 13:58:24 03/30/2017 23:59:59 DIS Outpatient ALISIA FERNANDEZ [facility] [id number] 03/30/2017 08:33:09 03/30/2017 23:59:59 DIS Outpatient ALISIA FERNANDEZ [facility] [id number] 03/29/2017 14:43:40 03/29/2017 23:59:59 DIS Outpatient ALISIA FERNANDEZ [facility] [id number] 03/29/2017 14:30:00 03/29/2017 23:59:59 DIS Outpatient ALISIA FERNANDEZ [facility] [id number] 03/28/2017 14:22:51 03/28/2017 23:59:59 DIS Outpatient JIM ALISIA D [facility] [id number] 03/28/2017 14:15:00 03/28/2017 23:59:59 DIS Outpatient ALISIA FERNANDEZ [facility] [id number] 03/24/2017 12:28:31 03/24/2017 23:59:59 DIS Outpatient ALISIA FERNANDEZ [facility] [id number] 03/22/2017 09:09:27 03/22/2017 23:59:59 DIS Outpatient ALISIA FERNANDEZ [facility] [id number] 03/22/2017 09:06:44 03/22/2017 23:59:59 DIS Outpatient ALISIA FERNANDEZ [facility] [id number] 03/21/2017 10:43:28 03/21/2017 23:59:59 DIS Outpatient ALISIA FERNANDEZ [facility] [id number] 03/13/2017 08:09:54 03/13/2017 23:59:59 DIS Outpatient ALISIA FERNANDEZ [facility] [id number] 03/13/2017 08:05:46 03/13/2017 23:59:59 DIS Outpatient ALISIA FERNANDEZ [facility] [id number] 03/09/2017 14:15:00 03/09/2017 23:59:59 DIS Outpatient ALISIA FERNANDEZ [facility] [id number] 03/08/2017 10:30:00 03/08/2017 23:59:59 DIS Outpatient ALISIA FERNANDEZ [facility] [id number] 05/26/2014 00:00:00 05/26/2014 00:00:00 DIS Outpatient JOSE GOMEZ [facility] [id number] 10/13/2017 02:00:47 Document Registration [id number] 03/10/2017 02:00:24 Document Registration [id number] 12/06/2016 08:29:44 Document Registration [id number] 12/05/2016 02:01:42 Document Registration [id number] 12/03/2016 02:04:37 Document Registration [id number] 10/31/2016 09:27:45 Document Registration [id number] 10/28/2016 02:02:07 Document Registration [id number] 10/01/2016 02:01:20 Document Registration [id number] 08/30/2016 09:57:43 Document Registration
[2017-12-06] MEDS ORDERED: RT-ALBUTEROL SULF 2.5 MG/3 ML PRE-MIX VIAL ONE (02:27)
[2017-12-06] MEDS ORDERED: CEFEPIME INJECTION 2,000 MG in NS (IVPB) 100 ML IV ONE (02:30)
--- NOTE | 2017-12-06 02:38 | ED Respiratory ---
General Stated Complaint: SOB Source: patient, EMS, custodial records, old records Exam Limitations: clinical condition (obtunded) History of Present Illness Date Seen by Provider: Dec 06, 2017 Time Seen by Provider: 02:20 Initial Comments The patient presents to the ER by EMS from [facility] with a chief complaint that his oxygen sats were in the 50% so he was moved from his nasal cannula to nonrebreather oxygen 5 L/m and sats did not improve above 60%. EMS put the patient on nonrebreather gave him another DuoNeb in addition to the 1 DuoNeb she received from the facility and transported him to the ER. On arrival the patient's sats were in the 60% range and he was unable to give any history. EMS reports that when they arrived the patient was just finishing a breathing treatment with low saturations and staff says this started tonight. He was dismissed from the hospital for a stay for pneumonia and UTI with an indwelling Cervantes catheter approximately 2-1/2 weeks ago. At that time he was treated with vancomycin and cefepime. His penicillin allergy is noted to be hives. He is also known to have COPD and be a DO NOT RESUSCITATE. He is not with a fever today per custodial records. He has a history of diabetes, COPD, GERD, away, peripheral neuropathy, hyperlipidemia, hypertension, depression Allergies and Home Medications Allergies Coded Allergies: Penicillins (Unverified Allergy, Mild, Hives, 11/18/17) Home Medications Acetaminophen 325 Mg Tablet, 650 MG PO Q4H PRN for PAIN-MILD, (Reported) TAKES 2 (325 MG) TABLETS Albuterol/Ipratropium 4 Gm Aero, 1 PUFF IH QID, (Reported) Amlodipine Besylate 5 Mg Tablet, 5 MG PO DAILY, (Reported) Ascorbate Calcium 500 Mg Tablet, 500 MG PO DAILY, (Reported) Bisacodyl 10 Mg Supp.rect, 10 MG RC DAILY PRN for CONSTIPATION-4TH LINE, ( Reported) Budesonide/Formoterol Fumarate 10.2 Gm Hfa.aer.ad, 2 PUFF IH BID, (Reported) Calcitriol 0.25 Mcg Capsule, 0.25 MCG PO DAILY, (Reported) Cholecalciferol (Vitamin D3) 2,000 Unit Tablet, 2,000 UNIT PO DAILY, (Reported) Ciprofloxacin HCl 500 Mg Tablet, 500 MG PO BID Prescribed by: FAUSTO GERBER on 11/23/17 1043 Cyanocobalamin (Vitamin B-12) 1,000 Mcg Tablet.er, 1,000 MCG PO DAILY, (Reported ) Fluticasone Propionate 16 Gm Flasher.susp, 1 SPRAY NSEACH HS, (Reported) Gabapentin 100 Mg Capsule, 100 MG PO 0000,0800,1600, (Reported) Glipizide 10 Mg Tablet, 10 MG PO DAILY, (Reported) Hydrocodone/Acetaminophen 1 Each Tablet, 1 TAB PO 0000,0800,1600, (Reported) Insulin Lispro 100 Unit/1 Ml Insuln.pen, SQ ACHS, (Reported) INJECT PER SLIDING SCALE: 151-199 1 UNIT 200-249 2 UNITS 250-299 3 UNITS 300-349 4 UNITS 350-399 5 UNITS IF GREATER THAN 400 NOTIFY PCP L. Acidophilus/Bulgaricus 1 Each Tablet, 1 TAB.CHEW PO AC Prescribed by: FAUSTO GERBER on 11/23/17 1043 Magnesium Hydroxide 400 Mg/5 Ml Oral.susp, 30 ML PO DAILY PRN for CONSTIPATION- 7TH LINE, (Reported) Melatonin/Pyridoxine HCl (B6) 1 Each Tablet, 3 MG PO HS PRN for SLEEP, (Reported ) Meloxicam 7.5 Mg Tablet, 7.5 MG PO DAILY, (Reported) Ondansetron 4 Mg Tab.rapdis, 4 MG SL Q6H PRN for NAUSEA/VOMITING-1ST LINE, ( Reported) Pantoprazole Sodium 40 Mg Tablet.dr, 40 MG PO DAILY, (Reported) Paroxetine HCl 10 Mg Tablet, 10 MG PO DAILY, (Reported) Simvastatin 40 Mg Tablet, 40 MG PO 1700, (Reported) Tamsulosin HCl 0.4 Mg Cap.er.24h, 0.4 MG PO DAILY, (Reported) Zinc 50 Mg Tablet, 50 MG PO DAILY, (Reported) Patient Home Medication List Home Medication List Reviewed: Yes Review of Systems Constitutional: see HPI (the patient's unable to give any meaningful review of systems other than open his eyes and respond to his name.) Past Tcnzhbm-Wkwfeh-Ndinrc Hx Patient Social History Recent Foreign Travel: No Contact w/Someone Who Travel: No Past Medical History Surgeries: Yes (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) Abdominal, Amputation Respiratory: Yes Pneumonia, COPD Cardiac: Yes Hypertension Neurological: Yes Paralysis Genitourinary: Yes (CHRONIC KIDNEY DZ) UTI-Chronic Gastrointestinal: Yes Gastroesophageal Reflux, Chronic Constipation Musculoskeletal: No Endocrine: Yes Diabetes, Insulin dep HEENT: No Loss of Vision: Denies Hearing Impairment: Denies Cancer: No Psychosocial: No Integumentary: Yes (WOUNDS, bilateral decubitus ulcers of lower extremities) Recent Skin Changes Family Medical History CAD Under 55 Years Old, CAD Over 55 Years Old Physical Exam Vital Signs Vital Signs - First Documented 12/06/17 02:21 Temp 96.6 Pulse 107 Resp 23 B/P (MAP) 142/78 (99) Pulse Ox 61 O2 Delivery NIV Bilevel O2 Flow Rate 15.00 FiO2 100 Capillary Refill : General Appearance: moderate distress, other (disheveled) Eyes: Bilateral Eye Normal Inspection, Bilateral Eye PERRL, Bilateral Eye EOMI HEENT: PERRL/EOMI, normal ENT inspection, pharynx normal (mucous membranes moist) Neck: non-tender, supple, normal inspection Respiratory: chest non-tender, respiratory distress (moderate), decreased breath sounds, accessory muscle use (moderate with CPAP in place), wheezing Cardiovascular: normal peripheral pulses, regular rate, rhythm, other ( bilateral lower extremity edema with Unna boots in place) Gastrointestinal: normal bowel sounds, non tender, soft Extremities: normal capillary refill, other (1+ pitting edema up to the calf with Unna boot) Neurologic/Psychiatric: other (oriented to self only. gCS 10) Focused Exam Lactate Level 12/06/17 02:21: Lactic Acid Level 1.77 Lactic Acid Level Laboratory Tests Test 12/06/17 02:21 Lactic Acid Level 1.77 MMOL/L (0.50-2.00) Progress/Results/Core Measures Suspected Sepsis SIRS Temperature: Pulse: Respiratory Rate: Laboratory Tests 12/06/17 02:21: White Blood Count 10.8 Blood Pressure / Mean: 12/06/17 02:21: Lactic Acid Level 1.77 Laboratory Tests 12/06/17 02:21: Creatinine 2.67H, INR Comment 1.1, Platelet Count 234, Total Bilirubin 0.4 Results/Orders Lab Results Laboratory Tests Test 12/06/17 02:21 12/06/17 02:53 12/06/17 02:59 Range/Units White Blood Count 10.8 4.3-11.0 10^3/uL Red Blood Count 4.33 L 4.35-5.85 10^6/uL Hemoglobin 11.3 L 13.3-17.7 G/DL Hematocrit 35 L 40-54 % Mean Corpuscular Volume 81 80-99 FL Mean Corpuscular Hemoglobin 26 25-34 PG Mean Corpuscular Hemoglobin Concent 32 32-36 G/DL Red Cell Distribution Width 15.8 H 10.0-14.5 % Platelet Count 234 130-400 10^3/uL Mean Platelet Volume 9.5 7.4-10.4 FL Neutrophils (%) (Auto) 57 42-75 % Lymphocytes (%) (Auto) 29 12-44 % Monocytes (%) (Auto) 12 0-12 % Eosinophils (%) (Auto) 1 0-10 % Basophils (%) (Auto) 1 0-10 % Neutrophils # (Auto) 6.2 1.8-7.8 X 10^3 Lymphocytes # (Auto) 3.1 1.0-4.0 X 10^3 Monocytes # (Auto) 1.3 H 0.0-1.0 X 10^3 Eosinophils # (Auto) 0.1 0.0-0.3 10^3/uL Basophils # (Auto) 0.1 0.0-0.1 10^3/uL Prothrombin Time 14.0 12.2-14.7 SEC INR Comment 1.1 0.8-1.4 Activated Partial Thromboplast Time 34 24-35 SEC Sodium Level 139 135-145 MMOL/L Potassium Level 4.6 3.6-5.0 MMOL/L Chloride Level 105 98-107 MMOL/L Carbon Dioxide Level 24 21-32 MMOL/L Anion Gap 10 5-14 MMOL/L Blood Urea Nitrogen 51 H 7-18 MG/DL Creatinine 2.67 H 0.60-1.30 MG/DL Estimat Glomerular Filtration Rate 24 BUN/Creatinine Ratio 19 Glucose Level 174 H 70-105 MG/DL Lactic Acid Level 1.77 0.50-2.00 MMOL/L Calcium Level 9.2 8.5-10.1 MG/DL Total Bilirubin 0.4 0.1-1.0 MG/DL Aspartate Amino Transf (AST/SGOT) 13 5-34 U/L Alanine Aminotransferase (ALT/SGPT) 8 0-55 U/L Alkaline Phosphatase 59 40-136 U/L Troponin I < 0.30 <0.30 NG/ML Total Protein 6.9 6.4-8.2 GM/DL Albumin 3.3 3.2-4.5 GM/DL Blood Gas Puncture Site RIGHT BRACHIAL Blood Gas Patient Temperature 95.2 Arterial Blood pH 7.24 *L 7.37-7.43 Arterial Blood Partial Pressure CO2 54 H 35-45 MMHG Arterial Blood Partial Pressure O2 72 L 79-93 MMHG Arterial Blood HCO3 23 23-27 MMOL/L Arterial Blood Total CO2 25.1 21.0-31.0 MMOL/L Arterial Blood Oxygen Saturation 94 94-100 % Arterial Blood Base Excess -3.4 L -2.5-2.5 MMOL/L Abilio Test NA Blood Gas Ventilator Setting NO Blood Gas Inspired Oxygen 60% My Orders Orders - THERESE DUPREE Cbc With Automated Diff (12/06/17:24) Comprehensive Metabolic Panel (12/06/17:24) Lactic Acid Analyzer (12/06/17 02:24) Blood Culture (12/06/17:24) Sputum Culture (12/06/17:) Ua Culture If Indicated (12/06/17:24) Protime With Inr (12/06/17:24) Partial Thromboplastin Time (12/06/17:24) Chest 1 View, Ap/Pa Only (12/06/17:24) O2 (12/06/17:24) Saline Lock/Iv-Start (12/06/17:24) Saline Lock/Iv-Start (12/06/17 02:24) Ekg Tracing (12/06/17:24) Troponin I (12/06/17:24) Cefepime Injection (Maxipime Injection) (12/06/17 02:30) Vital Signs Adult Sepsis Patie Q1H (12/06/17 02:24) Remove Rings In Anticipation O (12/06/17:24) Influenza A And B Antigens (12/06/17:24) Saline Lock/Iv-Start (12/06/17 02:24) Ns Iv 1000 Ml (Sodium Chloride 0.9%) (12/06/17 02:24) Albuterol Pre-Mix Nebs (Rt) (Proventil (12/06/17 02:24) Svn Small Volume Nebulizer (12/06/17 02:24) CPAP (12/06/17 02:24) Albuterol Pre-Mix Nebs (Rt) (Proventil (12/06/17 02:27) Arterial Blood Gas (12/06/17 02:48) Methylprednisolone Sod Succ (Solu-Medrol (12/06/17 03:15) Medications Given in ED Current Medications Medications Dose Ordered Sig/Wendy Route Start Time Stop Time Status Last Admin Dose Admin Cefepime HCl 2000 mg/Sodium Chloride 100 ml @ 200 mls/hr ONCE ONCE IV 12/06/17 02:30 12/06/17 02:59 DC 12/06/17 02:37 200 MLS/HR Sodium Chloride 1,000 ml @ 500 mls/hr Q2H ONCE IV 12/06/17 02:24 12/06/17 04:23 12/06/17 02:37 500 MLS/HR Vital Signs/I&O 12/06/17 12/06/17 12/06/17 12/06/17 02:21 02:21 02:45 03:03 Temp 96.6 Pulse 107 77 80 Resp 23 22 22 B/P (MAP) 142/78 (99) 132/63 Pulse Ox 61 61 93 96 O2 Delivery NIV Bilevel NIV/Bilevel NIV/CPAP O2 Flow Rate 15.00 100.00 60.00 FiO2 100 Capillary Refill : Progress Note #1: Time: 02:55 Progress Note The patient's sats were in the 60s on arrival however after being placed on CPAP and titrated 18/8 and FiO2 100% with a rate of 25 he is now satting in the mid to upper 90s. An hour-long breathing treatment was given. Aeration is mildly improved. ABG has been collected. His heart rate is now less than 100 at 81. Blood pressure still good. The patient was started on cefepime for possible healthcare acquired pneumonia. Progress Note #2: Time: 03:22 Progress Note The patient is alert, oriented and answering questions. He denies any pain, nausea. He is tolerating the BiPAP very well. ECG Initial ECG Impression Date: Dec 06, 2017 Initial ECG Impression Time: 02:32 Initial ECG Rate: 100 Initial ECG Rhythm: S.Tach Initial ECG Intervals: QT (470 ms) Initial ECG Impression: Normal, Nonspecific Changes Comment Sinus tachycardia with PVCs and respiratory artifact. Diagnostic Imaging Diagonstic Imaging: Xray Plain Films/CT/US/NM/MRI: chest (1v) Comments Possible right lower lobe infiltrate Reviewed: Reviewed by Me Departure Communication (Admissions) Time/Spoke to Admitting Phy: 03:10 Dr Moe: Discussed case lab imaging findings. The patient is well-known to the practitioner. Discussed with the patient is DO NOT RESUSCITATE/DNI. He will see the patient in the morning. Impression Primary Impression: COPD exacerbation Additional Impression: Acute respiratory failure with hypoxia and hypercapnia Disposition: ADMITTED INPATIENT Condition: Improved Admissions Decision to Admit Reason: Admit from ER (General) Decision to Admit/Date: Dec 06, 2017 Time/Decision to Admit Time: 03:06 Departure-Patient Inst. Referrals: ANDREW NICHOLAS DO (PCP/Family) Primary Care Physician Copy Copies To 1: ANDREW NICHOLAS TITUS J Dec 06, 2017 02:38
[2017-12-06 02:39] LABS: BASOPHILS # (AUTO) 0.1 10^3/uL (0.0-0.1); BASOPHILS % (AUTO) 1 % (0-10); EOSINOPHILS # (AUTO) 0.1 10^3/uL (0.0-0.3); EOSINOPHILS % (AUTO) 1 % (0-10); HEMATOCRIT 35 % (40-54); HEMOGLOBIN 11.3 G/DL (13.3-17.7); LYMPHOCYTES # (AUTO) 3.1 X 10^3 (1.0-4.0); LYMPHOCYTES % (AUTO) 29 % (12-44); MEAN CORPUSCULAR HEMOGLOBIN 26 PG (25-34); MEAN CORPUSCULAR HGB CONC 32 G/DL (32-36); MEAN CORPUSCULAR VOLUME 81 FL (80-99); MEAN PLATELET VOLUME 9.5 FL (7.4-10.4); MONOCYTES # (AUTO) 1.3 X 10^3 (0.0-1.0); MONOCYTES % (AUTO) 12 % (0-12); NEUTROPHILS # (AUTO) 6.2 X 10^3 (1.8-7.8); NEUTROPHILS % (AUTO) 57 % (42-75); PLATELET COUNT 234 10^3/uL (130-400); RED BLOOD COUNT 4.33 10^6/uL (4.35-5.85); RED CELL DISTRIBUTION WIDTH 15.8 % (10.0-14.5); WHITE BLOOD COUNT 10.8 10^3/uL (4.3-11.0)
[2017-12-06 02:53] LABS: INR 1.1 (0.8-1.4)
[2017-12-06 02:55] LABS: ABG BASE EXCESS -3.4 MMOL/L (-2.5-2.5); ABG OXYGEN SATURATION 94 % (94-100); ABG PCO2 54 MMHG (35-45); ABG PO2 72 MMHG (79-93); ABG TCO2 25.1 MMOL/L (21.0-31.0)
[2017-12-06 02:59] LABS: ABG PH 7.24 (7.37-7.43); INSPIRED O2 60%; PATIENT TEMP 95.2; VENTILATOR NO
[2017-12-06 03:01] LABS: ALANINE AMINOTRANSFERASE 8 U/L (0-55); ALBUMIN 3.3 GM/DL (3.2-4.5); ALKALINE PHOSPHATASE 59 U/L (40-136); BILIRUBIN,TOTAL 0.4 MG/DL (0.1-1.0); BUN/CREATININE RATIO 19; CALCIUM 9.2 MG/DL (8.5-10.1); CARBON DIOXIDE 24 MMOL/L (21-32); CHLORIDE 105 MMOL/L (98-107); CREATININE SERUM 2.67 MG/DL (0.60-1.30); GFR ESTIMATED 24; GLUCOSE 174 MG/DL (70-105); POTASSIUM 4.6 MMOL/L (3.6-5.0); SODIUM 139 MMOL/L (135-145); TOTAL PROTEIN 6.9 GM/DL (6.4-8.2)
[2017-12-06 03:10] LABS: BILIRUBIN,URINE NEGATIVE (NEGATIVE); CLARITY,URINE SLIGHTLY CLOUDY; COLOR,URINE YELLOW; GLUCOSE, URINE (UA) NEGATIVE (NEGATIVE); KETONES,URINE NEGATIVE (NEGATIVE); LEUKOCYTE ESTERASE ,URINE 3+ (NEGATIVE); NITRITE,URINE NEGATIVE (NEGATIVE); PH,URINE 5 (5-9); PROTEIN,URINE 3+ (NEGATIVE); UROBILINOGEN,URINE NORMAL (NORMAL)
[2017-12-06] MEDS ORDERED: methylPREDNISolone 125 MG (Solu-MEDROL) VIAL IVP ONE (03:15)
[2017-12-06 03:20] LABS: BACTERIA,URINE MODERATE /HPF; WBC,URINE 50-100 /HPF
--- OUTSIDE RECORDS SUMMARY | 2017-12-06 03:34 | XMS REPORT | Continuity of Care Document ---
Author Author [facility] Organization [facility] Address Unknown Phone Unavailable Allergies Active Description Code Type Severity Reaction Onset Reported/Identified Relationship to Patient Clinical Status Yes PCN (penicillin) [id number] CLASS N/A N/A Yes penicillins 3 Drug N/A N/A Yes Penicillins [id number] Drug Allergy Unknown N/A 05/11/2012 Yes Penicillins [id number] Drug Allergy Mild Hives 11/18/2017 Medications There [...] 4 (severe) ALEXUS LAURA I 07/27/2017 S [id number] Nicotine dependence, cigarettes, with other nicotine-induced disorders 07/27/2017 S E30476 Chronic venous hypertension (idiopathic) with ulcer of bilateral lower extremity 07/27/2017 P [id number] Pressure ulcer of sacral region, stage 4 07/27/2017 S [id number] Pressure ulcer of other site, stage 2 07/27/2017 S E19843 Non-pressure chronic ulcer of right ankle with fat layer exposed 10/17/2017 ALISIA FERNANDEZ [employer] TECHNICIAN Ot E27.8 OTHER SPECIFIED DISORDERS OF ADRENAL GLA 10/17/2017 ALISIA FERNANDEZ [employer] TECHNICIAN Ot J90 PLEURAL EFFUSION, NOT ELSEWHERE CLASSIFI 10/17/2017 ALISIA FERNANDEZ [employer] TECHNICIAN Ot K80.20 CALCULUS OF GALLBLADDER W/O CHOLECYSTITI 10/17/2017 ALISIA FERNANDEZ [employer] TECHNICIAN Ot L89.159 PRESSURE ULCER OF SACRAL REGION, UNSPECI 10/17/2017 ALISIA FERNANDEZ [employer] TECHNICIAN Ot N28.1 CYST OF KIDNEY, ACQUIRED 10/17/2017 ALISIA FERNANDEZ [employer] TECHNICIAN Ot R14.0 ABDOMINAL DISTENSION (GASEOUS) 10/17/2017 ALISIA FERNANDEZ [employer] TECHNICIAN Ot R33.9 RETENTION OF URINE, UNSPECIFIED 11/03/2017 ALISIA FERNANDEZ [employer] TECHNICIAN Ot E27.8 OTHER SPECIFIED DISORDERS OF ADRENAL GLA 11/03/2017 ALISIA FERNANDEZ [employer] TECHNICIAN Ot J90 PLEURAL EFFUSION, NOT ELSEWHERE CLASSIFI 11/03/2017 ALISIA FERNANDEZ [employer] TECHNICIAN Ot K80.20 CALCULUS OF GALLBLADDER W/O CHOLECYSTITI 11/03/2017 ALISIA FERNANDEZ [employer] SERVICE TECHNICIAN Ot L89.159 PRESSURE ULCER OF SACRAL REGION, UNSPECI 11/03/2017 ALISIA FERNANDEZ [employer] TECHNICIAN Ot N28.1 CYST OF KIDNEY, ACQUIRED 11/03/2017 ALISIA FERNANDEZ [employer] TECHNICIAN Ot R14.0 ABDOMINAL DISTENSION (GASEOUS) 11/03/2017 ALISIA FERNANDEZ [employer]ICE TECHNICIAN Ot R33.9 RETENTION OF URINE, UNSPECIFIED 11/15/2017 ALISIA FERNANDEZ [employer] SERVICE TECHNICIAN Ot E27.8 OTHER SPECIFIED DISORDERS OF ADRENAL GLA 11/15/2017 ALISIA FERNANDEZ [employer] SERVICE TECHNICIAN Ot J90 PLEURAL EFFUSION, NOT ELSEWHERE CLASSIFI 11/15/2017 ALISIA FERNANDEZ [employer] SERVICE TECHNICIAN Ot K80.20 CALCULUS OF GALLBLADDER W/O CHOLECYSTITI 11/15/2017 ALISIA FERNANDEZ [employer] SERVICE TECHNICIAN Ot L89.159 PRESSURE ULCER OF SACRAL REGION, UNSPECI 11/15/2017 ALISIA FERNANDEZ [employer] SERVICE TECHNICIAN Ot N28.1 CYST OF KIDNEY, ACQUIRED 11/15/2017 ALISIA FERNANDEZ [employer] SERVICE TECHNICIAN Ot R14.0 ABDOMINAL DISTENSION (GASEOUS) 11/15/2017 ALISIA FERNANDEZ [employer] SERVICE TECHNICIAN Ot R33.9 RETENTION OF URINE, UNSPECIFIED 11/18/2017 ALISIA FERNANDEZ [employer] SERV[employer] TECHNICIAN Ot E27.8 OTHER SPECIFIED DISORDERS OF ADRENAL GLA 11/18/2017 ALISIA FERNANDEZ [employer] TECHNICIAN Ot J90 PLEURAL EFFUSION, NOT ELSEWHERE CLASSIFI 11/18/2017 ALISIA FERNANDEZ [employer] TECHNICIAN Ot K80.20 CALCULUS OF GALLBLADDER W/O CHOLECYSTITI 11/18/2017 ALISIA FERNANDEZ [employer] SERVICE TECHNICIAN Ot L89.159 PRESSURE ULCER OF SACRAL REGION, UNSPECI 11/18/2017 ALISIA FERNANDEZ [employer] SERVICE TECHNICIAN Ot N28.1 CYST OF KIDNEY, ACQUIRED 11/18/2017 ALISIA FERNANDEZ [employer] SERVICE TECHNICIAN Ot R14.0 ABDOMINAL DISTENSION (GASEOUS) 11/18/2017 ALISIA FERNANDEZ [employer]ICE TECHNICIAN Ot R33.9 RETENTION OF URINE, UNSPECIFIED 11/21/2017 [...] MD, Ot K59.09 OTHER CONSTIPATION 11/21/2017 CARMENCITA HUTHCISON MD Ot L89.154 PRESSURE ULCER OF SACRAL [...] RESUSCITATE 11/21/2017 CARMENCITA HUTCHISON MD, Ot Z79.4 HALF-WAY (CURRENT) USE OF INSULIN 11/21/2017 CARMENCITA HUTCHISON [...] NICOTINE DEPENDENCE, CIGARETTES, UNCOMPL 11/21/2017 CARMENCITA HUTCHISON MD, Ot G82.20 PARAPLEGIA, UNSPECIFIED 11/21/2017 CARMENCITA [...] RESUSCITATE 11/21/2017 CARMENCITA HUTCHISON MD, Ot Z79.4 HALF-WAY (CURRENT) USE OF INSULIN 11/21/2017 CARMENCITA HUTCHISON [...] RESUSCITATE 11/22/2017 CARMENCITA HUTCHISON MD, Ot Z79.4 HALF-WAY (CURRENT) USE OF INSULIN 11/22/2017 CARMENCITA HUTCHISON [...] MD, Ot Z66 DO NOT RESUSCITATE 11/23/2017 CARMENCIAT HUTCHISON MD, Ot Z79.4 HALF-WAY (CURRENT) USE OF INSULIN 11/23/2017 CARMENCITA HUTCHISON [...] STATUS 11/23/2017 CARMENCITA HUTCHISON MD, Ot Z79.4 HALF-WAY (CURRENT) USE OF INSULIN 11/23/2017 CARMENCITA HUTCHISON MD Ot Z89.411 ACQUIRED ABSENCE OF RIGHT GREAT TOE 11/23/2017 CARMENCITA HUTCHISON MD Ot Z89.421 ACQUIRED ABSENCE OF OTHER RIGHT TOE(S) 11/23/2017 CARMENCITA HUTCHISON MD Ot Z99.81 DEPENDENCE ON SUPPLEMENTAL OXYGEN Procedures Code Description [place] [address] Office or other outpatient visit for the [...] culture - 11/18/17 08:00 Bacterial urine culture [id number] NRG COLONY COUNT >100,000/ML NR FTX;REPORTABLE SENSITIVITY REPORTED 11/20 07:00 [facility] Bacterial susceptibility panel - 11/18/17 08:00 Gentamicin susceptibility test by minimum inhibitory concentration S NR Vancomycin susceptibility test by minimum inhibitory concentration 1 NR Levofloxacin susceptibility test by minimum inhibitory concentration 2 [facility] Tetracycline susceptibility test by minimum inhibitory concentration >= NR Ampicillin susceptibility test by minimum inhibitory concentration < = NR Nitrofurantoin susceptibility test by minimum inhibitory concentration <= NR Linezolid susceptibility test by minimum inhibitory concentration 2 [facility] Bacterial susceptibility panel - 11/18/17 08:00 Gentamicin susceptibility test by minimum inhibitory concentration < = NR Tobramycin susceptibility test by minimum inhibitory concentration < = NR Piperacillin/tazobactam susceptibility test by minimum inhibitory concentration S [facility] Ciprofloxacin susceptibility test by minimum inhibitory concentration >= NR Meropenem susceptibility test by minimum inhibitory concentration 4 NR Cefepime susceptibility test by minimum inhibitory concentration 2 NR Influenza virus A and B antigen detection - 11/18/17 08:20 FLU RESULT NEGATIVE FOR INFLUENZA A AND B ANTIGENS BY IA [facility] Bacterial blood culture - 11/18/17 08:20 Bacterial blood culture NG [facility] Gram stain microscopy - 11/18/17 08:21 GRAM STAIN RESULT RARE GRAM POSITIVE COCCI [facility] Bacteria identification in wound by culture - 11/18/17 08:21 Bacteria identification in wound by culture [id number] [facility] FREE TEXT EXTERNAL PSEUDOMONAS SENSITIVITY REPORTED ON [...] measurement by glucometer (mass/volume) 84 mg/dL 70-110 Complete blood count (CBC) with automated white blood cell (WBC) differential - 12/06/17 02:21 Blood leukocytes automated count (number/volume) 10.8 10*3/uL 4.3-11.0 Blood erythrocytes automated count (number/volume) 4.33 10*6/uL 4.35-5.85 Venous blood hemoglobin measurement (mass/volume) 11.3 g/dL 13.3-17.7 Blood hematocrit (volume fraction) 35 % 40-54 Automated erythrocyte mean corpuscular volume 81 [foz_us] 80-99 Automated erythrocyte mean corpuscular hemoglobin (mass per erythrocyte) 26 pg 25-34 Automated erythrocyte mean corpuscular hemoglobin concentration measurement ( mass/volume) 32 g/dL 32-36 Automated erythrocyte distribution width ratio 15.8 % 10.0-14.5 Automated blood platelet count (count/volume) 234 10*3/uL 130-400 Automated blood platelet mean volume measurement 9.5 [foz_us] 7.4-10.4 Automated blood neutrophils/100 leukocytes 57 % 42-75 Automated blood lymphocytes/100 leukocytes 29 % 12-44 Blood monocytes/100 leukocytes 12 % 0-12 Automated blood eosinophils/100 leukocytes 1 % 0-10 Automated blood basophils/100 leukocytes 1 % 0-10 Blood neutrophils automated count (number/volume) 6.2 10*3 1.8-7.8 Blood lymphocytes automated count (number/volume) 3.1 10*3 1.0-4.0 Blood monocytes automated count (number/volume) 1.3 10*3 0.0-1.0 Automated eosinophil count 0.1 10*3/uL 0.0-0.3 Automated blood basophil count (count/volume) 0.1 10*3/uL 0.0-0.1 PT panel in platelet poor plasma by coagulation assay - 12/06/17 02:21 Prothrombin time (PT) in platelet poor plasma by coagulation assay 14.0 s 12.2-14.7 INR in platelet poor plasma or blood by coagulation assay 1.1 0.8-1.4 Activated partial thromboplastin time (aPTT) in platelet poor plasma bycoagulation assay - 12/06/17 02:21 Activated partial thromboplastin time (aPTT) in platelet poor plasma bycoagulation assay 34 s 24-35 Blood lactic acid measurement (moles/volume) - 12/06/17 02:21 Blood lactic acid measurement (moles/volume) 1.77 mmol/L 0.50-2.00 Comprehensive metabolic panel - 12/06/17 02:21 Serum or plasma sodium measurement (moles/volume) 139 mmol/L 135-145 Serum or plasma potassium measurement (moles/volume) 4.6 mmol/L 3.6-5.0 Serum or plasma chloride measurement (moles/volume) 105 mmol/L 98-107 Carbon dioxide 24 mmol/L 21-32 Serum or plasma anion gap determination (moles/volume) 10 mmol/L 5-14 Serum or plasma urea nitrogen measurement (mass/volume) 51 mg/dL 7-18 Serum or plasma creatinine measurement (mass/volume) 2.67 mg/dL 0.60-1.30 Serum or plasma urea nitrogen/creatinine mass ratio 19 NRG Serum or plasma creatinine measurement with calculation of estimated glomerular filtration rate 24 NRG Serum or plasma glucose measurement (mass/volume) 174 mg/dL 70-105 Serum or plasma calcium measurement (mass/volume) 9.2 mg/dL 8.5-10.1 Serum or plasma total bilirubin measurement (mass/volume) 0.4 mg/dL 0.1-1.0 Serum or plasma alkaline phosphatase measurement (enzymatic activity/volume) 59 U/L 40-136 Serum or plasma aspartate aminotransferase measurement (enzymatic activity/ volume) 13 U/L 5-34 Serum or plasma alanine aminotransferase measurement (enzymatic activity/volume ) 8 U/L 0-55 Serum or plasma protein measurement (mass/volume) 6.9 g/dL 6.4-8.2 Serum or plasma albumin measurement (mass/volume) 3.3 g/dL 3.2-4.5 Serum or plasma troponin i.cardiac measurement (mass/volume) - 12/06/17 02:21 Serum or plasma troponin i.cardiac measurement (mass/volume) < ng/ mL <0.30 Arterial blood gas measurement - 12/06/17 02:53 Blood pCO2 54 mm[Hg] 35-45 Blood pO2 72 mm[Hg] 79-93 Arterial blood bicarbonate measurement (moles/volume) 23 mmol/L 23-27 Arterial blood base excess by calculation -3.4 mmol/L - 2.5-2.5 Arterial blood oxygen saturation measurement 94 % 94-100 * Inhaled oxygen flow rate 60% NRG Arterial blood pH measurement with patient temperature correction 7.24 7.37-7.43 Arterial blood carbon dioxide, total measurement (moles/volume) 25.1 mmol/L 21.0-31.0 Body site RIGHT BRACHIAL NRG Assessment of wrist artery patency prior to arterial puncture NA NRG Setting of ventilation mode NO NRG Measurement of body temperature 95.2 NRG Complete urinalysis with reflex to culture - 12/06/17 02:59 Urine color determination YELLOW NRG Urine clarity determination SLIGHTLY CLOUDY NRG Urine pH measurement by test strip 5 5-9 Specific gravity of urine by test strip 1.020 1.016- 1.022 Urine protein assay by test strip, semi-quantitative 3+ NEGATIVE Urine glucose detection by automated test strip NEGATIVE NEGATIVE Erythrocytes detection in urine sediment by light microscopy 2+ NEGATIVE Urine ketones detection by automated test strip NEGATIVE NEGATIVE Urine nitrite detection by test strip NEGATIVE NEGATIVE Urine total bilirubin detection by test strip NEGATIVE NEGATIVE Urine urobilinogen measurement by automated test strip (mass/volume) NORMAL NORMAL Urine leukocyte esterase detection by dipstick 3+ NEGATIVE Automated urine sediment erythrocyte count by microscopy (number/high power field) [HPF] NRG Automated urine sediment leukocyte count by microscopy (number/high power field ) [HPF] NRG Bacteria detection in urine sediment by light microscopy MODERATE NRG Squamous epithelial cells detection in urine sediment by light microscopy 5-10 NRG Crystals detection in urine sediment by light microscopy NONE NRG Casts detection in urine sediment by light microscopy NONE NRG Mucus detection in urine sediment by light microscopy SMALL NRG Complete urinalysis with reflex to culture YES NRG Encounters ACCT No. Visit Date/Time Discharge Status Pt. Type Provider Facility Loc./Unit Complaint [id number] 06/22/2017 09:39:07 06/22/2017 23:59:59 CLS Outpatient Magdy Harris [id number] 12/28/2016 11:03:17 12/28/2016 23:59:59 CLS Outpatient Lucinda Elder [id number] 03/23/2015 22:06:00 03/23/2015 23:59:59 CLS Outpatient Magdy Harris [id number] 08/17/2014 18:33:51 08/17/2014 23:59:59 CLS Outpatient Magdy Harris [id number] 06/16/2014 12:15:27 06/16/2014 23:59:59 CLS Outpatient Carlie Vasques [id number] 06/16/2014 12:05:57 06/16/2014 23:59:59 CLS Outpatient Elder Jane [id number] 05/28/2014 10:15:40 05/28/2014 23:59:59 CLS Outpatient Elder Jane [id number] 11/18/2017 09:06:00 11/23/2017 16:50:00 DIS Inpatient FOSTER OBRIEN, CARMENCITA Wilkerson [facility] 4TH SEVERE SEPSIS,RESP FAILURE, PNEUMONIA,UTI [id number] 10/13/2017 09:46:00 10/13/2017 23:59:59 CLS Outpatient ALISIA FERNANDEZ Savita MONCADA [facility] RAD 6 MO F/U [id number] 12/06/2017 03:15:00 ACT Inpatient JOHN BHARDWAJ MD [facility] 4TH COPD EXACERBATION, POSS PNA., ACUTE RESPIRATORY [id number] 07/18/2012 10:30:00 Document Registration [id number] 06/22/2012 11:55:00 Document Registration [id number] 06/15/2012 11:45:00 Document Registration [id number] 11/29/2017 08:06:50 Document Registration [id number] 11/15/2017 08:47:22 Document Registration [id number] 11/08/2017 10:05:20 Document Registration [id number] 10/31/2017 08:43:38 Document Registration [id number] 10/17/2017 09:03:12 Document Registration [id number] 10/02/2017 09:40:16 Document Registration [id number] 09/25/2017 09:30:30 Document Registration [id number] 09/19/2017 09:06:04 Document Registration [id number] 09/11/2017 09:21:03 Document Registration [id number] 08/29/2017 10:32:35 Document Registration [id number] 08/21/2017 09:32:38 Document Registration [id number] 08/10/2017 10:19:01 Document Registration [id number] 08/08/2017 11:18:21 Document Registration [id number] 07/26/2017 08:57:43 Document Registration [id number] 07/17/2017 10:14:40 Document Registration [id number] 06/29/2017 15:08:16 Document Registration [id number] 06/29/2017 15:02:40 Document Registration [id number] 06/15/2017 11:41:11 Document Registration [id number] 06/09/2017 10:32:42 Document Registration [id number] 06/07/2017 08:50:33 Document Registration [id number] 06/01/2017 11:51:47 Document Registration [id number] 05/25/2017 10:57:54 Document Registration [id number] 05/24/2017 09:13:38 Document Registration [id number] 05/18/2017 11:10:48 Document Registration [id number] 05/16/2017 09:04:49 Document Registration [id number] 05/11/2017 08:52:19 Document Registration [id number] 04/16/2017 09:58:17 Document Registration [id number] 04/10/2017 21:33:41 Document Registration [id number] 04/10/2017 11:48:56 Document Registration [id number] 04/06/2017 09:05:08 Document Registration [id number] 04/04/2017 22:41:46 Document Registration [id number] 03/30/2017 19:13:52 Document Registration [id number] 03/30/2017 19:03:38 Document Registration [id number] 03/30/2017 18:54:41 Document Registration [id number] 03/30/2017 18:54:40 Document Registration [id number] 03/30/2017 18:54:39 Document Registration [id number] 03/30/2017 18:54:32 Document Registration [id number] 03/30/2017 10:31:21 Document Registration [id number] 06/23/2016 08:18:15 Document Registration [id number] 10/24/2017 11:16:01 10/24/2017 23:59:59 DIS Outpatient ALISIA FERNANDEZ [facility] [id number] 10/24/2017 10:48:40 10/24/2017 23:59:59 DIS Outpatient ALISIA FERNANDEZ [facility] [id number] 07/10/2017 11:37:30 07/10/2017 23:59:59 DIS Outpatient ALISIA FERNANDEZ [facility] [id number] 07/10/2017 10:30:00 07/10/2017 23:59:59 DIS Outpatient ALISIA FERNANDEZ [facility] [id number] 05/08/2017 10:00:00 05/08/2017 23:59:59 DIS Outpatient ALISIA FERNANDEZ [facility] [id number] 04/10/2017 11:21:00 04/10/2017 23:59:59 DIS Outpatient JASON JOSE Savita [facility] [id number] 04/04/2017 10:00:00 04/04/2017 23:59:59 DIS Outpatient [facility] [id number] 03/30/2017 23:00:00 03/30/2017 23:59:59 DIS Outpatient JOSE GOMEZ [facility] [id number] 03/30/2017 13:58:24 03/30/2017 23:59:59 DIS Outpatient ALISIA FERNANDEZ [facility] [id number] 03/30/2017 08:33:09 03/30/2017 23:59:59 DIS Outpatient ALISIA FERNANDEZ [facility] [id number] 03/29/2017 14:43:40 03/29/2017 23:59:59 DIS Outpatient ALISIA FERNANDEZ [facility] [id number] 03/29/2017 14:30:00 03/29/2017 23:59:59 DIS Outpatient ALISIA FERNANDEZ [facility] [id number] 03/28/2017 14:22:51 03/28/2017 23:59:59 DIS Outpatient ALISIA FERNANDEZ [facility] [id number] 03/28/2017 14:15:00 03/28/2017 23:59:59 DIS Outpatient ALISIA FERNANDEZ [facility] [id number] 03/24/2017 12:28:31 03/24/2017 23:59:59 DIS Outpatient ALISIA FERNANDEZ [facility] [id number] 03/22/2017 09:09:27 03/22/2017 23:59:59 DIS Outpatient ALISIA FERNANDEZ [facility] [id number] 03/22/2017 09:06:44 03/22/2017 23:59:59 DIS Outpatient ALISIA FERNANDEZ [facility] [id number] 03/21/2017 10:43:28 03/21/2017 23:59:59 DIS Outpatient FERNANDEZ ALISIA Barney [facility] [id number] 03/13/2017 08:09:54 03/13/2017 23:59:59 DIS Outpatient ALISIA FERNANDEZ [facility] [id number] 03/13/2017 08:05:46 03/13/2017 23:59:59 DIS Outpatient ALISIA FERNANDEZ [facility] [id number] 03/09/2017 14:15:00 03/09/2017 23:59:59 DIS Outpatient JIM ALISIA Barney [facility] [id number] 03/08/2017 10:30:00 03/08/2017 23:59:59 DIS Outpatient FERNANDEZ ALISIA Barney [facility] [id number] 05/26/2014 00:00:00 05/26/2014 00:00:00 DIS Outpatient JOSE GOMEZ [facility] [id number] 10/13/2017 02:00:47 Document Registration [id number] 03/10/2017 02:00:24 Document Registration [id number] 12/06/2016 08:29:44 Document Registration [id number] 12/05/2016 02:01:42 Document Registration [id number] 12/03/2016 02:04:37 Document Registration [id number] 10/31/2016 09:27:45 Document Registration [id number] 10/28/2016 02:02:07 Document Registration [id number] 10/01/2016 02:01:20 Document Registration [id number] 08/30/2016 09:57:43 Document Registration
[2017-12-06 03:45] VITALS: BP 148/67
[2017-12-06 04:10] VITALS: BP 148/67
[2017-12-06 04:16] LABS: ABG BASE EXCESS -2.6 MMOL/L (-2.5-2.5); ABG OXYGEN SATURATION 60 % (94-100); ABG PCO2 61 MMHG (35-45); ABG PO2 42 MMHG (79-93); ABG TCO2 26.3 MMOL/L (21.0-31.0)
[2017-12-06 04:17] LABS: ABG PH 7.22 (7.37-7.43); INSPIRED O2 40%; PATIENT TEMP 96.7; VENTILATOR NO
[2017-12-06] MEDS ORDERED: ONDANSETRON 4 MG/2 ML (SDV) Z0FRAN IV PRN (04:30)
[2017-12-06] MEDS ORDERED: CEFEPIME INJECTION 2,000 MG in NS (IVPB) 100 ML IV SCH (04:30)
[2017-12-06] MEDS ORDERED: ACETAMINOPHEN 500 MG TAB (TYLENOL) PO PRN (04:30)
[2017-12-06] MEDS: 1/2 NS W/KCL 20 MEQ/L 1,000 ML IV SCH ×2 (04:44→15:11)
[2017-12-06] MEDS ORDERED: RT-ALBUTEROL/IPRATROPIUM 3 ML (DUONEB) VIAL ONE (07:07)
[2017-12-06] MEDS: RT-ALBUTEROL/IPRATROPIUM 3 ML (DUONEB) VIAL INH SCH ×5 (07:10→21:42)
--- NOTE | 2017-12-06 07:30 | Diagnostic Imaging Report ---
INDICATION: Shortness of breath. Comparison with 11/19/2017. FINDINGS: There is increasing consolidated infiltrate in the right lower lobe since previous exam with some volume loss. Left lung is well-aerated without acute infiltrate. Heart is mildly enlarged. Pacemaker on the right unchanged. No pneumothorax demonstrated. Cannot exclude small right pleural effusion. IMPRESSION: Development of infiltrate and/or atelectasis right lung base since previous exam. Dictated by: Dictated on workstation # [id number]
[2017-12-06 07:49] VITALS: BP 142/63
[2017-12-06] MEDS ORDERED: methylPREDNISolone 40 MG/ML (Solu-MEDROL) VIAL IV SCH (09:00)
[2017-12-06] MEDS ORDERED: DEXT4TAB PO (09:24)
[2017-12-06] MEDS ORDERED: ACID1TAB PO (09:50)
[2017-12-06] MEDS ORDERED: MELA3TAB PO (09:50)
[2017-12-06] MEDS ORDERED: ONDANSETRON 4 MG (ZOFRAN) ORAL DISSOLVE TAB SL PRN (11:30)
[2017-12-06] MEDS ORDERED: BISACODYL 10 MG SUPP (DULCOLAX) RC PRN (11:30)
[2017-12-06] MEDS ORDERED: ACETAMINOPHEN 325 MG TABLET/CAPLET (TYLENOL) PO PRN (11:30)
[2017-12-06] MEDS ORDERED: MILK OF MAGNESIA 400 MG/5 ML 30 ML UDC PO PRN (11:30)
--- NOTE | 2017-12-06 11:32 | History & Physical-Hospitalist ---
History of Present Illness HPI/Chief Complaint Chief complaint: Shortness of breath History of present illness: This is a 72-year-old white male known to me from prior hospital stays of Dr. Cooper with a past medical history of COPD and continued smoking with lower extremity venous stasis ulcers along with chronic indwelling catheter due to neurogenic bladder and resistant UTI who presents to the ER with shortness of breath and was found to have a right lower lobe pneumonia so he was placed empirically on cefepime due to facility acquired status and high risk for resistant organism and was placed on IV steroids for the severity of her COPD exacerbation. He has required BiPAP and currently unable to talk to me with any great detail but he reports that he feels much better since hospital stay. Dr. Del Toro will be consulted. Source: patient, RN/MD Exam Limitations: clinical condition (Patient with BiPAP) Date Seen 12/06/17 Time Seen by Provider: 11:00 Attending Physician Kimo Moe MD PCP Steven Cooper DO Referring Physician Date of Admission Dec 06, 2017 at 03:15 Home Medications & Allergies Home Medications Reviewed patient Home Medication Reconciliation performed by pharmacy medication reconciliations plastic eye technician and/or nursing. Patients Allergies have been reviewed. Allergies Allergies Coded Allergies Penicillins (Unverified Allergy, Mild, Hives, 11/18/17) Past Brswlbs-Vrawyj-Oddqyj Hx Past Med/Social Hx: Reviewed Nursing Past Med/Soc Hx, Reviewed and Corrections made Patient Social History Marrital Status: single Alcohol Use: Denies Use Recreational Drug Use: No Smoking Status: Current Everyday Smoker 2nd Hand Smoke Exposure: Yes Physical Abuse Screen: No Sexual Abuse: No Recent Foreign Travel: No Contact w/other who traveled: No Recent Hopitalizations: Yes Recent Infectious Disease Expo: No Immunizations Up To Date Tetanus Booster (TDap): Unknown Seasonal Allergies Seasonal Allergies: No Past Medical History Surgeries: Abdominal, Amputation Respiratory: COPD Cardiac: Hypertension Neurological: Paralysis Genitourinary: Kidney Infection, Bladder Infection, UTI-Chronic Gastrointestinal: Gastroesophageal Reflux, Chronic Constipation Endocrine: Diabetes, Insulin dep Loss of Vision: Denies Hearing Impairment: Denies Skin/Integumentary: Recent Skin Changes History of Blood Disorders: No Adverse Reaction to Blood Henderson: No Family History CAD Under 55 Years Old, CAD Over 55 Years Old Review of Systems Constitutional: see HPI, malaise, weakness EENTM: no symptoms reported Respiratory: dyspnea on exertion, short of breath, wheezing Cardiovascular: no symptoms reported Gastrointestinal: loss of appetite Genitourinary: no symptoms reported Musculoskeletal: no symptoms reported Skin: no symptoms reported Psychiatric/Neurological: Depressed All Other Systems Reviewed Negative Unless Noted: Yes Physical Exam Physical Exam Vital Signs Vital Signs - First Documented 12/06/17 02:21 Temp 96.6 Pulse 107 Resp 23 B/P (MAP) 142/78 (99) Pulse Ox 61 O2 Delivery NIV Bilevel O2 Flow Rate 15.00 FiO2 100 Capillary Refill : Less Than 3 Seconds General Appearance: WD/WN, Anxious, Chronically ill, Mild Distress HEENT: Normal ENT Inspection Neck: Full Range of Motion, Normal Inspection, Non Tender, Supple Respiratory: Crackles, Decreased Breath Sounds, Wheezing Cardiovascular: Regular Rate, Rhythm, No Edema, No Gallop, No JVD, No Murmur Gastrointestinal: No Organomegaly, No Pulsatile Mass, Non Tender, Soft Back: Normal Inspection, No CVA Tenderness, No Vertebral Tenderness Extremity: Normal Capillary Refill, Normal Inspection, Normal Range of Motion, Inflammation, Pedal Edema Neurologic/Psychiatric: Alert, Oriented x3, No Motor/Sensory Deficits, business banking manager II- XII Norm as Tested, Depressed Affect Skin: Normal Color, Warm/Dry Lymphatic: No Adenopathy Results Results/Procedures Labs Laboratory Tests 12/06/17 02:21 Patient resulted labs reviewed. Assessment/Plan Admission Diagnosis Pneumonia with AECOPD Plan: IV abx Nebs biPAP DNR Admission Status: Inpatient Order (span 2 midnights) Reason for Inpatient Admission: IV abx and steroids Diagnosis/Problems Diagnosis/Problems (1) Pneumonia involving right lung Status: Acute Qualifiers: Pneumonia type: due to unspecified organism Lung location: lower lobe of lung Qualified Codes: J18.1 - Lobar pneumonia, unspecified organism (2) COPD EXACERBATION, POSSIBLE PNEUMONIA, ACUTE RESPIRATORY DISTRESS Status: Acute (3) Acute respiratory failure with hypoxia and hypercapnia Status: Acute (4) CKD (chronic kidney disease) stage 4, GFR 15-29 ml/min Status: Chronic (5) Essential (primary) hypertension Status: Chronic (6) Tobacco abuse Status: Chronic (7) Insulin dependent diabetes mellitus Status: Chronic Clinical Quality Measures DVT/VTE Risk/Contraindication: Risk Factor Score Per Nursin RFS Level Per Nursing on Admit: 4+=Very High FAUSTO GERBER DO Dec 06, 2017 11:32
[2017-12-06 12:00] VITALS: BP 120/60
--- NOTE | 2017-12-06 12:43 | Pulmonary Consultation ---
History of Present Illness History of Present Illness Date of Consultation 12/06/17 12:38 Time Seen by Provider: 12:38 Date of Admission History of Present Illness 72yo with hx of COPD and persistent tobacco use presented to ED via EMS from [facility] secondary to respiratory distress and hypoxia. Sp02 was 50% on 50%. Pt has a chronic mendez secondary to neurogenic bladder. PT was found to have acute pneumonia and placed on Cefepime. Pt is from [facility]. I am consulted for pulmonary management. Allergies and Home Medications Allergies Coded Allergies: Penicillins (Unverified Allergy, Mild, Hives, 11/18/17) Home Medications Acetaminophen 325 Mg Tablet, 650 MG PO Q4H PRN for TEMP >100, (Reported) TAKES 2 (325 MG) TABLETS Albuterol/Ipratropium 4 Gm Aero, 1 PUFF IH QID, (Reported) Amlodipine Besylate 5 Mg Tablet, 5 MG PO DAILY, (Reported) HOLD AND NOTIFY PCP FOR BP LESS THAN 90/50 OR PULSE LESS THAN 50. NOTIFY PCP FOR BP OVER 160/110 OR PULSE OVER 100 Ascorbate Calcium 500 Mg Tablet, 500 MG PO DAILY, (Reported) Bisacodyl 10 Mg Supp.rect, 10 MG RC DAILY PRN for CONSTIPATION-4TH LINE, ( Reported) Budesonide/Formoterol Fumarate 10.2 Gm Hfa.aer.ad, 2 PUFF IH BID, (Reported) Calcitriol 0.25 Mcg Capsule, 0.25 MCG PO DAILY, (Reported) Cefdinir 300 Mg Capsule, 300 MG PO ttwice a day Prescribed by: JOHN BHARDWAJ on 12/11/17 1117 Cholecalciferol (Vitamin D3) 2,000 Unit Tablet, 2,000 UNIT PO DAILY, (Reported) Cyanocobalamin (Vitamin B-12) 1,000 Mcg Tablet.er, 1,000 MCG PO DAILY, (Reported ) Fluticasone Propionate 16 Gm Edward.susp, 1 SPRAY NS HS, (Reported) Gabapentin 100 Mg Capsule, 100 MG PO 0000,0800,1600, (Reported) Glipizide 10 Mg Tablet, 10 MG PO DAILY, (Reported) Hydrocodone/Acetaminophen 1 Each Tablet, 1 TAB PO 0000,0800,1600, (Reported) Insulin Lispro 100 Unit/1 Ml Insuln.pen, SQ ACHS, (Reported) INJECT PER SLIDING SCALE: 151-199 1 UNIT NOTIFY PCP IF <60 200-249 2 UNITS 250-299 3 UNITS 300-349 4 UNITS 350-399 5 UNITS IF GREATER THAN 400 NOTIFY PCP L. Acidophilus/Bulgaricus 1 Each Tablet, 1 TAB PO AC, (Reported) 14 DAY SUPPLY START DATE 11-24-17 Magnesium Hydroxide 400 Mg/5 Ml Oral.susp, 30 ML PO DAILY PRN for CONSTIPATION- 7TH LINE, (Reported) Melatonin 3 Mg Tablet, 3 MG PO HS PRN for SLEEP, (Reported) Meloxicam 7.5 Mg Tablet, 7.5 MG PO DAILY, (Reported) Nicotine 1 Each Patch.td24, 21 MG TD DAILY Prescribed by: JOHN BHARDWAJ on 12/11/17 1114 Ondansetron 4 Mg Tab.rapdis, 4 MG SL Q6H PRN for NAUSEA/VOMITING-1ST LINE, ( Reported) Pantoprazole Sodium 40 Mg Tablet.dr, 40 MG PO DAILY, (Reported) Paroxetine HCl 10 Mg Tablet, 10 MG PO DAILY, (Reported) Simvastatin 40 Mg Tablet, 40 MG PO 1700, (Reported) Tamsulosin HCl 0.4 Mg Cap.er.24h, 0.4 MG PO DAILY, (Reported) Zinc 50 Mg Tablet, 50 MG PO DAILY, (Reported) Past Napbkqv-Hzjzks-Niohls Hx Patient Social History Alcohol Use: Denies Use Recreational Drug Use: No Smoking Status: Current Everyday Smoker 2nd Hand Smoke Exposure: Yes Recent Foreign Travel: No Contact w/Someone Who Travel: No Recent Infectious Disease Expo: No Recent Hopitalizations: Yes Immunizations Up To Date Tetanus Booster (TDap): Unknown Seasonal Allergies Seasonal Allergies: No Past Medical History Surgeries: Yes (gangrene of intestine with surgery and skin grafts) Abdominal, Amputation Respiratory: Yes Pneumonia, COPD Cardiac: Yes Hypertension Neurological: Yes Paralysis Genitourinary: Yes (CHRONIC KIDNEY DZ) UTI-Chronic Gastrointestinal: Yes Gastroesophageal Reflux, Chronic Constipation Musculoskeletal: No Endocrine: Yes Diabetes, Insulin dep HEENT: No Loss of Vision: Denies Hearing Impairment: Denies Cancer: No Psychosocial: No Integumentary: Yes (WOUNDS, bilateral decubitus ulcers of lower extremities) Recent Skin Changes Blood Disorders: No Adverse Reaction/Blood Tranf: No Family Medical History CAD Under 55 Years Old, CAD Over 55 Years Old Review of Systems Time Seen by Provider: 10:50 Constitutional: Weakness, Malaise Respiratory: Cough, Shortness of breath, Wheezing, Sputum Neurological: Weakness Exam Exam Vital Signs Date Time Temp Pulse Resp B/P (MAP) Pulse Ox O2 Delivery O2 Flow Rate FiO2 12/06/17 11:06 92 High Flow N/C 4.00 12/06/17 10:57 86 20 98 40.00 12/06/17 09:25 83 20 96 40.00 12/06/17 07:49 97.1 87 18 142/63 (89) 96 NIV Bilevel 40.00 12/06/17 07:15 94 NIV Bilevel 40 12/06/17 07:13 88 20 95 40.00 12/06/17 04:10 105 94 40 12/06/17 04:10 105 17 94 40.00 12/06/17 03:45 96.7 91 18 148/67 (94) 93 NIV Bilevel 40.00 12/06/17 03:45 NIV Bilevel 40 12/06/17 03:31 96.6 85 20 158/61 (86) 97 NIV Bilevel 60.00 12/06/17 03:03 80 22 96 60.00 12/06/17 02:45 77 22 132/63 93 NIV/CPAP 100.00 12/06/17 02:21 96.6 107 23 142/78 (99) 61 NIV/Bilevel 15.00 12/06/17 02:21 61 NIV Bilevel 100 I & O 12/06/17 07:00 Intake Total 1100 ml Output Total 300 ml Balance 800 ml General Appearance: Anxious, Cachetic, Mild Distress HEENT: PERRL/EOMI, Normal ENT Inspection, Pharynx Normal Respiratory: No Accessory Muscle Use, No Respiratory Distress, Decreased Breath Sounds, Wheezing Capillary Refill: Less Than 3 Seconds Gastrointestinal: normal bowel sounds, non tender, soft Extremity: Normal Capillary Refill, Normal Inspection Neurologic/Psychiatric: Alert Skin: Normal Color, Warm/Dry Lymphatic: No Adenopathy Results Lab Laboratory Tests 12/06/17 02:21 Assessment/Plan Assessment/Plan COPDAE -SVNS, solumedrol Atelectasis r/o PNA -Cultures pending -Continue Abx for now 254 MARTY DURHAM DO Dec 06, 2017 12:42
[2017-12-06] MEDS ORDERED: ALBUTEROL/IPRATROP (COMBIVENT RESPIMAT) 4 GM INHALER IH SCH (13:00)
[2017-12-06] MEDS: inSUlin ASPART (NovoLOG) 1 UNIT/0.01 ML (CHARGE PER UNIT) SC SCH ×3 (13:59→20:58)
[2017-12-06] MEDS ORDERED: inSUlin ASPART (NovoLOG) 1 UNIT/0.01 ML (CHARGE PER UNIT) SC SCH (14:30)
[2017-12-06] MEDS: HYDROcodone/APAP 10 MG/325 MG (LORTAB) TAB PO SCH (15:14)
[2017-12-06] MEDS: LACTOBACILLUS Acidoph/Bulgar (LACTINEX/FLORANEX) TAB PO SCH (15:14)
[2017-12-06] MEDS: GABAPENTIN 100 MG (NEURONTIN) CAP PO SCH (15:14)
[2017-12-06 16:25] VITALS: BP 135/62
[2017-12-06] MEDS: methylPREDNISolone 40 MG/ML (Solu-MEDROL) VIAL IV SCH (17:49)
[2017-12-06] MEDS: SIMvastatin 40 MG (ZOCOR) TAB PO SCH (17:49)
[2017-12-06] MEDS: RT-ADVAIR HFA 115/21 MCG PER PUFF IH SCH (18:52)
[2017-12-06 20:50] VITALS: BP 136/71
[2017-12-06] MEDS: FLUTICASONE NASAL SPRAY (FLONASE) 16 GM BTL NS SCH (20:57)
[2017-12-06] MEDS ORDERED: MELATONIN 3 MG TABLET PO PRN (21:00)
[2017-12-07] VITALS: BP 134/63
[2017-12-07] MEDS: GABAPENTIN 100 MG (NEURONTIN) CAP PO SCH ×4 (00:07→23:08)
[2017-12-07] MEDS: methylPREDNISolone 40 MG/ML (Solu-MEDROL) VIAL IV SCH ×2 (00:07→05:30)
[2017-12-07] MEDS: HYDROcodone/APAP 10 MG/325 MG (LORTAB) TAB PO SCH ×4 (00:08→23:09)
[2017-12-07] MEDS: 1/2 NS W/KCL 20 MEQ/L 1,000 ML IV SCH ×3 (00:10→20:30)
[2017-12-07] MEDS: RT-ALBUTEROL/IPRATROPIUM 3 ML (DUONEB) VIAL INH SCH ×6 (01:23→23:20)
[2017-12-07] MEDS: LACTOBACILLUS Acidoph/Bulgar (LACTINEX/FLORANEX) TAB PO SCH ×3 (05:30→16:20)
[2017-12-07] MEDS: CEFEPIME INJECTION 2,000 MG in NS (IVPB) 100 ML IV SCH (05:31)
[2017-12-07] MEDS: inSUlin ASPART (NovoLOG) 1 UNIT/0.01 ML (CHARGE PER UNIT) SC SCH ×4 (05:31→20:30)
[2017-12-07 06:13] LABS: BASOPHILS % (AUTO) 0 % (0-10); EOSINOPHILS % (AUTO) 0 % (0-10); HEMATOCRIT 30 % (40-54); HEMOGLOBIN 9.7 G/DL (13.3-17.7); LYMPHOCYTES # (AUTO) 0.4 X 10^3 (1.0-4.0); LYMPHOCYTES % (AUTO) 5 % (12-44); MEAN CORPUSCULAR HEMOGLOBIN 26 PG (25-34); MEAN CORPUSCULAR HGB CONC 32 G/DL (32-36); MEAN CORPUSCULAR VOLUME 80 FL (80-99); MEAN PLATELET VOLUME 9.5 FL (7.4-10.4); MONOCYTES # (AUTO) 0.2 X 10^3 (0.0-1.0); MONOCYTES % (AUTO) 2 % (0-12); NEUTROPHILS # (AUTO) 7.6 X 10^3 (1.8-7.8); NEUTROPHILS % (AUTO) 93 % (42-75); PLATELET COUNT 191 10^3/uL (130-400); RED BLOOD COUNT 3.78 10^6/uL (4.35-5.85); RED CELL DISTRIBUTION WIDTH 15.7 % (10.0-14.5); WHITE BLOOD COUNT 8.2 10^3/uL (4.3-11.0)
[2017-12-07] MEDS: RT-ADVAIR HFA 115/21 MCG PER PUFF IH SCH ×2 (06:22→18:35)
[2017-12-07 06:24] LABS: ANISOCYTOSIS SLIGHT; BAND NEUTROPHILS 1 %; BASOPHILS % (MANUAL) 0 %; EOSINOPHILS % (MANUAL) 0 %; LYMPHOCYTES % (MANUAL) 5 %; MONOCYTES % (MANUAL) 1 %; NEUTROPHILS % (MANUAL) 93 %; POIKILOCYTOSIS SLIGHT
[2017-12-07 06:31] LABS: BILIRUBIN,TOTAL 0.4 MG/DL (0.1-1.0); CALCIUM 8.8 MG/DL (8.5-10.1); CREATININE SERUM 2.44 MG/DL (0.60-1.30); TOTAL PROTEIN 6.6 GM/DL (6.4-8.2)
[2017-12-07 07:20] VITALS: BP 137/64
--- NOTE | 2017-12-07 08:03 | Pulmonary Progress Note ---
Subjective Time Seen by Provider: 08:10 Subjective/Events-last exam PT appears to be doing better. Focused Exam Lactate Level 12/06/17 02:21: Lactic Acid Level 1.77 Exam Exam Vital Signs Date Time Temp Pulse Resp B/P (MAP) Pulse Ox O2 Delivery O2 Flow Rate FiO2 12/07/17 07:20 97.7 83 18 137/64 (88) 94 Nasal Cannula 3.00 12/07/17 06:25 High Flow N/C 3.00 12/07/17 06:23 95 High Flow N/C 3.00 12/07/17 04:00 97 Nasal Cannula 3.00 12/07/17 01:24 95 High Flow N/C 3.00 12/07/17 00:00 98.8 68 20 134/63 (86) 98 Nasal Cannula 3.00 12/06/17 21:43 96 High Flow N/C 3.00 12/06/17 21:00 High Flow N/C 4.00 12/06/17 20:50 98.5 71 20 136/71 (92) 97 Nasal Cannula 3.00 12/06/17 18:58 High Flow N/C 3.00 12/06/17 18:52 97 High Flow N/C 4.00 12/06/17 16:25 97.1 79 18 135/62 (86) 95 High Flow N/C 4.00 12/06/17 14:02 92 High Flow N/C 4.00 12/06/17 12:00 98.2 93 20 120/60 (80) 94 Nasal Cannula 4.00 12/06/17 11:06 92 High Flow N/C 4.00 12/06/17 10:57 86 20 98 40.00 12/06/17 10:00 High Flow N/C 4.00 12/06/17 09:25 83 20 96 40.00 I & O 12/07/17 07:00 Intake Total 1390 ml Output Total 925 ml Balance 465 ml General Appearance: No Apparent Distress, WD/WN, Anxious, Chronically ill HEENT: Normal ENT Inspection Neck: Full Range of Motion, Normal Inspection, Non Tender, Supple Respiratory: Crackles, Decreased Breath Sounds, Wheezing Cardiovascular: Regular Rate, Rhythm, No Edema, No Gallop, No JVD, No Murmur Capillary Refill: Less Than 3 Seconds Gastrointestinal: normal bowel sounds, non tender, soft Extremity: Normal Capillary Refill, Normal Inspection, Normal Range of Motion, Inflammation, Pedal Edema Neurologic/Psychiatric: Alert, Oriented x3, No Motor/Sensory Deficits, 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
[2017-12-07] MEDS ORDERED: CALCITRIOL 0.25 MCG PO SCH (09:00)
[2017-12-07] MEDS: PARoxetine 10 MG (PAXIL) TAB PO SCH (09:37)
[2017-12-07] MEDS: MELOXICAM 7.5 MG (MOBIC) TABLET PO SCH (09:37)
[2017-12-07] MEDS: ZINC SULFATE 220 MG CAPSULE PO SCH (09:37)
[2017-12-07] MEDS: VITAMIN D3 1,000 UNITS (CHOLECALCIFEROL) TABLET PO SCH (09:39)
[2017-12-07] MEDS: ASCORBIC ACID (VIT C) 500 MG TABLET PO SCH (09:39)
[2017-12-07] MEDS: glipiZIDE 5 MG (GLUCOTROL) TAB PO SCH (09:39)
[2017-12-07] MEDS: amLODIPine 5 MG (NORVASC) TAB PO SCH (09:39)
[2017-12-07] MEDS: PANTOPRAZOLE 40 MG (PROTONIX) TAB PO SCH (09:39)
[2017-12-07] MEDS: CYANOCOBALAMIN 500 MCG TAB (VITAMIN B-12) PO SCH (09:39)
[2017-12-07] MEDS: TAMSULOSIN 0.4 MG (FLOMAX) CAP PO SCH (09:39)
--- NOTE | 2017-12-07 10:32 | Progress Note-Hospitalist ---
Subjective HPI/CC On Admission Date Seen by Provider: Dec 07, 2017 Time Seen by Provider: 09:30 Chief complaint: Shortness of breath History of present illness: This is a 72-year-old white male known to me from prior hospital stays of Dr. Cooper with a past medical history of COPD and continued smoking with lower extremity venous stasis ulcers along with chronic indwelling catheter due to neurogenic bladder and resistant UTI who presents to the ER with shortness of breath and was found to have a right lower lobe pneumonia so he was placed empirically on cefepime due to facility acquired status and high risk for resistant organism and was placed on IV steroids for the severity of her COPD exacerbation. He has required BiPAP and currently unable to talk to me with any great detail but he reports that he feels much better since hospital stay. Dr. Del Toro will be consulted. Subjective/Events-last exam Patient was supposed to go to [facility] today but that will need to be rescheduled Dr. Del Toro's help is appreciated Patient feels much better and off BiPAP Bowels are moving he reports Had a nephrology appointment with the doctor who [facility] today so that will be rescheduled Tolerating antibiotics well Will need to keep over the weekend for IV antibiotic purposes then discharge back to the assisted with the first the week and he was participating in physical therapy there so will need skilled orders Review of Systems General: Malaise Pulmonary: Cough Focused Exam Lactate Level 12/06/17 02:21: Lactic Acid Level 1.77 Objective Exam Vital Signs Vital Signs Date Time Temp Pulse Resp B/P (MAP) Pulse Ox O2 Delivery O2 Flow Rate FiO2 12/07/17 09:19 95 High Flow N/C 3.00 12/07/17 07:20 97.7 83 18 137/64 (88) 12/06/17 07:15 40 Capillary Refill : Less Than 3 Seconds General Appearance: No Apparent Distress, WD/WN, Chronically ill, Obese Respiratory: Lungs Clear, Normal Breath Sounds, Decreased Breath Sounds Cardiovascular: Regular Rate, Rhythm, No Edema Extremity: Pedal Edema Neurologic/Psychiatric: Alert, Oriented x3, No Motor/Sensory Deficits, 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 Assessment/Plan Assessment and Plan Assess & Plan/Chief Complaint Assessment: Facility acquired pneumonia Pseudomonas UTI Indwelling Cervantes catheter Chronic debility Plan: Continue IV antibiotics line keep over the weekend Discharge back to the assisted at the first of the week with skilled worse since he is participating in therapy there Reschedule nephrology appointments and wound care appointment in [place] Diagnosis/Problems Diagnosis/Problems (1) Pneumonia involving right lung Status: Acute Qualifiers: Pneumonia type: due to unspecified organism Lung location: lower lobe of lung Qualified Codes: J18.1 - Lobar pneumonia, unspecified organism (2) COPD EXACERBATION, POSSIBLE PNEUMONIA, ACUTE RESPIRATORY DISTRESS Status: Acute (3) Acute respiratory failure with hypoxia and hypercapnia Status: Resolved (4) CKD (chronic kidney disease) stage 4, GFR 15-29 ml/min Status: Chronic (5) Essential (primary) hypertension Status: Chronic (6) Tobacco abuse Status: Chronic (7) Insulin dependent diabetes mellitus Status: Chronic Clinical Quality Measures DVT/VTE Risk/Contraindication: Risk Factor Score Per Nursin RFS Level Per Nursing on Admit: 4+=Very High FAUSTO GERBER DO Dec 07, 2017 10:32
[2017-12-07] MEDS: predniSONE 10 MG TAB PO SCH (12:11)
[2017-12-07] MEDS: RT-ALBUTEROL/IPRATROPIUM 3 ML (DUONEB) VIAL INH PRN (12:29)
[2017-12-07 16:00] VITALS: BP 117/58
[2017-12-07] MEDS: SIMvastatin 40 MG (ZOCOR) TAB PO SCH (16:20)
[2017-12-07] MEDS: FLUTICASONE NASAL SPRAY (FLONASE) 16 GM BTL NS SCH (20:30)
[2017-12-08] VITALS: BP 134/61
[2017-12-08] MEDS: RT-ALBUTEROL/IPRATROPIUM 3 ML (DUONEB) VIAL INH SCH ×6 (02:48→22:38)
[2017-12-08] MEDS: LACTOBACILLUS Acidoph/Bulgar (LACTINEX/FLORANEX) TAB PO SCH ×3 (05:44→15:54)
[2017-12-08] MEDS: CEFEPIME INJECTION 2,000 MG in NS (IVPB) 100 ML IV SCH (05:45)
[2017-12-08] MEDS: inSUlin ASPART (NovoLOG) 1 UNIT/0.01 ML (CHARGE PER UNIT) SC SCH ×4 (05:50→20:47)
[2017-12-08 05:55] LABS: BASOPHILS % (AUTO) 0 % (0-10); EOSINOPHILS % (AUTO) 0 % (0-10); HEMATOCRIT 31 % (40-54); LYMPHOCYTES # (AUTO) 0.4 X 10^3 (1.0-4.0); LYMPHOCYTES % (AUTO) 3 % (12-44); MEAN CORPUSCULAR HEMOGLOBIN 26 PG (25-34); MEAN CORPUSCULAR HGB CONC 32 G/DL (32-36); MEAN CORPUSCULAR VOLUME 80 FL (80-99); MEAN PLATELET VOLUME 9.4 FL (7.4-10.4); MONOCYTES # (AUTO) 0.4 X 10^3 (0.0-1.0); MONOCYTES % (AUTO) 3 % (0-12); NEUTROPHILS # (AUTO) 10.9 X 10^3 (1.8-7.8); NEUTROPHILS % (AUTO) 94 % (42-75); PLATELET COUNT 197 10^3/uL (130-400); RED BLOOD COUNT 3.92 10^6/uL (4.35-5.85); RED CELL DISTRIBUTION WIDTH 15.6 % (10.0-14.5); WHITE BLOOD COUNT 11.6 10^3/uL (4.3-11.0)
[2017-12-08 06:12] LABS: BILIRUBIN,TOTAL 0.4 MG/DL (0.1-1.0); CALCIUM 8.5 MG/DL (8.5-10.1); CREATININE SERUM 2.5 MG/DL (0.60-1.30); POTASSIUM 5.1 MMOL/L (3.6-5.0); TOTAL PROTEIN 5.9 GM/DL (6.4-8.2)
[2017-12-08] MEDS: 1/2 NS W/KCL 20 MEQ/L 1,000 ML IV SCH (07:00)
[2017-12-08] MEDS ORDERED: FUROSEMIDE 40 MG/4 ML INJ (LASIX) IVP ONE (07:45)
--- NOTE | 2017-12-08 07:45 | Pulmonary Progress Note ---
Subjective Time Seen by Provider: 07:41 Subjective/Events-last exam No complications noted. Focused Exam Lactate Level 12/06/17 02:21: Lactic Acid Level 1.77 Exam Exam Vital Signs Date Time Temp Pulse Resp B/P (MAP) Pulse Ox O2 Delivery O2 Flow Rate FiO2 12/08/17 02:48 56 16 2 30.00 12/08/17 00:15 73 20 93 30.00 12/08/17 00:00 96.8 72 18 134/61 (85) 98 NIV Bilevel 12/07/17 23:20 68 20 93 30.00 12/07/17 21:00 NIV Bilevel 12/07/17 20:35 69 20 95 30.00 12/07/17 18:35 69 21 93 30.00 12/07/17 18:35 NIV Bilevel 12/07/17 16:00 97.3 75 18 117/58 (77) 95 Nasal Cannula 3.00 12/07/17 15:15 98 23 96 30.00 12/07/17 13:15 128 23 97 30.00 12/07/17 12:30 128 27 90 40.00 12/07/17 09:19 95 High Flow N/C 3.00 12/07/17 09:00 High Flow N/C 4.00 I & O 12/08/17 07:00 Intake Total 2430 ml Output Total 1525 ml Balance 905 ml General Appearance: No Apparent Distress, WD/WN, Chronically ill, Obese HEENT: Normal ENT Inspection Neck: Full Range of Motion, Normal Inspection, Non Tender, Supple Respiratory: Lungs Clear, Normal Breath Sounds, Decreased Breath Sounds Cardiovascular: Regular Rate, Rhythm, No Edema Capillary Refill: Less Than 3 Seconds Gastrointestinal: normal bowel sounds, non tender, soft Extremity: Pedal Edema Neurologic/Psychiatric: Alert, Oriented x3, No Motor/Sensory Deficits, 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
[2017-12-08] MEDS: RT-ALBUTEROL/IPRATROPIUM 3 ML (DUONEB) VIAL INH PRN (07:49)
[2017-12-08] MEDS: RT-ADVAIR HFA 115/21 MCG PER PUFF IH SCH ×2 (07:50→18:50)
[2017-12-08 08:00] VITALS: BP 141/65
[2017-12-08] MEDS: amLODIPine 5 MG (NORVASC) TAB PO SCH (08:49)
[2017-12-08] MEDS: glipiZIDE 5 MG (GLUCOTROL) TAB PO SCH (08:50)
[2017-12-08] MEDS: GABAPENTIN 100 MG (NEURONTIN) CAP PO SCH ×2 (08:50→15:54)
[2017-12-08] MEDS: MELOXICAM 7.5 MG (MOBIC) TABLET PO SCH (08:50)
[2017-12-08] MEDS: PANTOPRAZOLE 40 MG (PROTONIX) TAB PO SCH (08:50)
[2017-12-08] MEDS: PARoxetine 10 MG (PAXIL) TAB PO SCH (08:50)
[2017-12-08] MEDS: VITAMIN D3 1,000 UNITS (CHOLECALCIFEROL) TABLET PO SCH (08:50)
[2017-12-08] MEDS: ASCORBIC ACID (VIT C) 500 MG TABLET PO SCH (08:50)
[2017-12-08] MEDS: CYANOCOBALAMIN 500 MCG TAB (VITAMIN B-12) PO SCH (08:50)
[2017-12-08] MEDS: HYDROcodone/APAP 10 MG/325 MG (LORTAB) TAB PO SCH ×2 (08:51→15:54)
[2017-12-08] MEDS: TAMSULOSIN 0.4 MG (FLOMAX) CAP PO SCH (08:51)
[2017-12-08] MEDS: ZINC SULFATE 220 MG CAPSULE PO SCH (08:51)
[2017-12-08] MEDS ORDERED: predniSONE 10 MG TAB PO SCH (08:58)
[2017-12-08] MEDS: predniSONE 10 MG TAB PO SCH (09:52)
[2017-12-08] MEDS: CALCITRIOL 0.25 MCG (ROCALTROL) CAPSULE PO SCH (11:17)
--- NOTE | 2017-12-08 11:40 | Progress Note-Hospitalist ---
Subjective HPI/CC On Admission Date Seen by Provider: Dec 08, 2017 Time Seen by Provider: 10:30 Chief complaint: Shortness of breath History of present illness: This is a 72-year-old white male known to me from prior hospital stays of Dr. Cooper with a past medical history of COPD and continued smoking with lower extremity venous stasis ulcers along with chronic indwelling catheter due to neurogenic bladder and resistant UTI who presents to the ER with shortness of breath and was found to have a right lower lobe pneumonia so he was placed empirically on cefepime due to facility acquired status and high risk for resistant organism and was placed on IV steroids for the severity of her COPD exacerbation. He has required BiPAP and currently unable to talk to me with any great detail but he reports that he feels much better since hospital stay. Dr. Del Toro will be consulted. Subjective/Events-last exam Patient required BiPAP again IV fluids that were given for elevated creatinine was stopped today due to volume overload and patient was given Lasix the creatinine continues to climb at 2.5 Indwelling Cervantes catheter remains Overall prognosis poor but will continue cefepime and current treatment until Monday then discharge back to the retirement Bowels are moving Eating and drinking well Has no concerns at this current time Review of Systems Cardiovascular: Orthopnea, Edema Focused Exam Lactate Level 12/06/17 02:21: Lactic Acid Level 1.77 Objective Exam Vital Signs Vital Signs Date Time Temp Pulse Resp B/P (MAP) Pulse Ox O2 Delivery O2 Flow Rate FiO2 12/08/17 10:34 70 24 95 30.00 12/08/17 09:00 Nasal Cannula 12/08/17 08:00 96.3 141/65 (90) 12/06/17 07:15 40 Capillary Refill : Less Than 3 SecondsLess Than 3 Seconds General Appearance: No Apparent Distress, WD/WN, Chronically ill, Obese Respiratory: Crackles, Decreased Breath Sounds Cardiovascular: Regular Rate, Rhythm, No Edema Neurologic/Psychiatric: Alert, Oriented x3, No Motor/Sensory Deficits, 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 Assessment/Plan Assessment and Plan Assess & Plan/Chief Complaint Assessment: Facility acquired pneumonia Pseudomonas UTI Indwelling Cervantes catheter Chronic debility CRI Plan: Continue IV antibiotics and keep over the weekend Discharge back to the retirement at the first of the week with skilled worse since he is participating in therapy there Reschedule nephrology appointments and wound care appointment in [facility] Diagnosis/Problems Diagnosis/Problems (1) Pneumonia involving right lung Status: Acute Qualifiers: Pneumonia type: due to unspecified organism Lung location: lower lobe of lung Qualified Codes: J18.1 - Lobar pneumonia, unspecified organism (2) COPD EXACERBATION, POSSIBLE PNEUMONIA, ACUTE RESPIRATORY DISTRESS Status: Acute (3) Acute respiratory failure with hypoxia and hypercapnia Status: Resolved (4) CKD (chronic kidney disease) stage 4, GFR 15-29 ml/min Status: Chronic (5) Essential (primary) hypertension Status: Chronic (6) Tobacco abuse Status: Chronic (7) Insulin dependent diabetes mellitus Status: Chronic Clinical Quality Measures DVT/VTE Risk/Contraindication: Risk Factor Score Per Nursin RFS Level Per Nursing on Admit: 4+=Very High FAUSTO GERBER DO Dec 08, 2017 11:40
[2017-12-08 16:25] VITALS: BP 137/65
[2017-12-08] MEDS: SIMvastatin 40 MG (ZOCOR) TAB PO SCH (17:41)
[2017-12-08] MEDS: FLUTICASONE NASAL SPRAY (FLONASE) 16 GM BTL NS SCH (20:47)
[2017-12-09] VITALS: BP 157/72
[2017-12-09] MEDS: GABAPENTIN 100 MG (NEURONTIN) CAP PO SCH ×3 (00:05→16:47)
[2017-12-09] MEDS: HYDROcodone/APAP 10 MG/325 MG (LORTAB) TAB PO SCH ×3 (00:05→16:47)
[2017-12-09] MEDS: RT-ALBUTEROL/IPRATROPIUM 3 ML (DUONEB) VIAL INH SCH ×6 (02:39→22:20)
[2017-12-09] MEDS: inSUlin ASPART (NovoLOG) 1 UNIT/0.01 ML (CHARGE PER UNIT) SC SCH ×4 (05:23→20:57)
[2017-12-09] MEDS: CALCITRIOL 0.25 MCG (ROCALTROL) CAPSULE PO SCH (05:23)
[2017-12-09] MEDS: CEFEPIME INJECTION 2,000 MG in NS (IVPB) 100 ML IV SCH (05:23)
[2017-12-09] MEDS: LACTOBACILLUS Acidoph/Bulgar (LACTINEX/FLORANEX) TAB PO SCH ×3 (05:23→16:47)
[2017-12-09] MEDS: RT-ADVAIR HFA 115/21 MCG PER PUFF IH SCH ×3 (07:47→19:24)
[2017-12-09 08:00] VITALS: BP 153/71
[2017-12-09] MEDS: ZINC SULFATE 220 MG CAPSULE PO SCH (08:43)
[2017-12-09] MEDS: PARoxetine 10 MG (PAXIL) TAB PO SCH (08:43)
[2017-12-09] MEDS: VITAMIN D3 1,000 UNITS (CHOLECALCIFEROL) TABLET PO SCH (08:44)
[2017-12-09] MEDS: glipiZIDE 5 MG (GLUCOTROL) TAB PO SCH (08:44)
[2017-12-09] MEDS: PANTOPRAZOLE 40 MG (PROTONIX) TAB PO SCH (08:44)
[2017-12-09] MEDS: MELOXICAM 7.5 MG (MOBIC) TABLET PO SCH (08:44)
[2017-12-09] MEDS: amLODIPine 5 MG (NORVASC) TAB PO SCH (08:44)
[2017-12-09] MEDS: TAMSULOSIN 0.4 MG (FLOMAX) CAP PO SCH (08:44)
[2017-12-09] MEDS: ASCORBIC ACID (VIT C) 500 MG TABLET PO SCH (08:44)
[2017-12-09] MEDS: CYANOCOBALAMIN 500 MCG TAB (VITAMIN B-12) PO SCH (08:44)
[2017-12-09] MEDS: predniSONE 10 MG TAB PO SCH (11:13)
--- NOTE | 2017-12-09 11:55 | Progress Note-Hospitalist ---
Subjective HPI/CC On Admission Date Seen by Provider: Dec 09, 2017 Time Seen by Provider: 11:20 Chief complaint: Shortness of breath History of present illness: This is a 72-year-old white male known to me from prior hospital stays of Dr. Cooper with a past medical history of COPD and continued smoking with lower extremity venous stasis ulcers along with chronic indwelling catheter due to neurogenic bladder and resistant UTI who presents to the ER with shortness of breath and was found to have a right lower lobe pneumonia so he was placed empirically on cefepime due to facility acquired status and high risk for resistant organism and was placed on IV steroids for the severity of her COPD exacerbation. He has required BiPAP and currently unable to talk to me with any great detail but he reports that he feels much better since hospital stay. Dr. Del Toro will be consulted. Subjective/Events-last exam Patient is awake and alert and without complaint. He says he is doing better than when he was admitted. Urine cultures second organism does show VRE less than 10 to the fifth. Objective Exam Vital Signs Vital Signs Date Time Temp Pulse Resp B/P (MAP) Pulse Ox O2 Delivery O2 Flow Rate FiO2 12/10/17 10:39 96 High Flow N/C 3.00 12/10/17 08:01 96.5 71 20 129/58 (81) 12/09/17 15:23 36 Capillary Refill : Less Than 3 SecondsLess Than 3 Seconds General Appearance: No Apparent Distress, Chronically ill HEENT: Normal ENT Inspection Neck: Non Tender, Limited Range of Motion Respiratory: Normal Breath Sounds, No Accessory Muscle Use, No Respiratory Distress, Crackles, Rales Cardiovascular: Regular Rate, Rhythm, No Gallop, Systolic Murmur Gastrointestinal: No Organomegaly, Non Tender, Soft Extremity: Pedal Edema (Wrapped bilaterally lower extremities) Neurologic/Psychiatric: Alert, Oriented x3, No Motor/Sensory Deficits, Normal Mood/Affect Skin: Ecchymosis Lymphatic: No Adenopathy Results/Procedures Lab Patient resulted labs reviewed. Assessment/Plan Assessment and Plan Assess & Plan/Chief Complaint 1. Right lower lobe pneumonia-facility acquired on meropenem 2. Exacerbation of COPD secondary to number 1 3. Chronic renal failure-stable4. Neurogenic bladder with indwelling Cervantes catheter with Pseudomonas sensitive to meropenem and VRE 4. Debility chronically bedbound with venous stasis ulcers and decubitus ulcers followed by wound care 5. Tobaccoism curtailed 6. Hyperkalemia secondary to chronic renal failure 7. Type II diabetes on insulin 8. Hypertension-will follow Clinical Quality Measures DVT/VTE Risk/Contraindication: Risk Factor Score Per Nursin RFS Level Per Nursing on Admit: 4+=Very High MAURY GONSALVES MD Dec 09, 2017 11:55
[2017-12-09 15:23] VITALS: BP 153/71
[2017-12-09] MEDS: SIMvastatin 40 MG (ZOCOR) TAB PO SCH (16:47)
[2017-12-09 16:53] VITALS: BP 173/73
[2017-12-09] MEDS: FLUTICASONE NASAL SPRAY (FLONASE) 16 GM BTL NS SCH (20:57)
[2017-12-09 22:11] VITALS: BP 173/73
[2017-12-09 23:58] VITALS: BP 158/74
[2017-12-10] MEDS: GABAPENTIN 100 MG (NEURONTIN) CAP PO SCH ×3 (00:14→16:41)
[2017-12-10] MEDS: HYDROcodone/APAP 10 MG/325 MG (LORTAB) TAB PO SCH ×3 (00:14→16:42)
[2017-12-10] MEDS: RT-ALBUTEROL/IPRATROPIUM 3 ML (DUONEB) VIAL INH SCH ×6 (02:16→22:37)
[2017-12-10] MEDS: inSUlin ASPART (NovoLOG) 1 UNIT/0.01 ML (CHARGE PER UNIT) SC SCH ×4 (05:47→20:59)
[2017-12-10] MEDS: CEFEPIME INJECTION 2,000 MG in NS (IVPB) 100 ML IV SCH (05:54)
[2017-12-10] MEDS: LACTOBACILLUS Acidoph/Bulgar (LACTINEX/FLORANEX) TAB PO SCH ×3 (05:54→16:41)
[2017-12-10] MEDS: CALCITRIOL 0.25 MCG (ROCALTROL) CAPSULE PO SCH (05:54)
[2017-12-10] MEDS: ADVAIR HFA 115/21 MCG INHALER 8 GM IH SCH ×2 (07:26→18:53)
[2017-12-10 08:01] VITALS: BP 129/58
[2017-12-10] MEDS: PARoxetine 10 MG (PAXIL) TAB PO SCH (09:26)
[2017-12-10] MEDS: glipiZIDE 5 MG (GLUCOTROL) TAB PO SCH (09:27)
[2017-12-10] MEDS: MELOXICAM 7.5 MG (MOBIC) TABLET PO SCH (09:27)
[2017-12-10] MEDS: ASCORBIC ACID (VIT C) 500 MG TABLET PO SCH (09:27)
[2017-12-10] MEDS: amLODIPine 5 MG (NORVASC) TAB PO SCH (09:27)
[2017-12-10] MEDS: ZINC SULFATE 220 MG CAPSULE PO SCH (09:27)
[2017-12-10] MEDS: PANTOPRAZOLE 40 MG (PROTONIX) TAB PO SCH (09:27)
[2017-12-10] MEDS: CYANOCOBALAMIN 500 MCG TAB (VITAMIN B-12) PO SCH (09:27)
[2017-12-10] MEDS: VITAMIN D3 1,000 UNITS (CHOLECALCIFEROL) TABLET PO SCH (09:27)
[2017-12-10] MEDS: TAMSULOSIN 0.4 MG (FLOMAX) CAP PO SCH (09:27)
--- NOTE | 2017-12-10 12:20 | Progress Note-Hospitalist ---
Subjective HPI/CC On Admission Date Seen by Provider: Dec 10, 2017 Time Seen by Provider: 11:50 Chief complaint: Shortness of breath History of present illness: This is a 72-year-old white male known to me from prior hospital stays of Dr. Cooper with a past medical history of COPD and continued smoking with lower extremity venous stasis ulcers along with chronic indwelling catheter due to neurogenic bladder and resistant UTI who presents to the ER with shortness of breath and was found to have a right lower lobe pneumonia so he was placed empirically on cefepime due to facility acquired status and high risk for resistant organism and was placed on IV steroids for the severity of her COPD exacerbation. He has required BiPAP and currently unable to talk to me with any great detail but he reports that he feels much better since hospital stay. Dr. Del Toro will be consulted. Subjective/Events-last exam Patient is very pleased that he still feeling some much better and his oxygen needs are down to 2 L nasal cannula. He has no new complaints and is anxious to be discharged back to his facility tomorrow. Review of Systems Pulmonary: Dyspnea Neurological: Weakness Objective Exam Vital Signs Vital Signs Date Time Temp Pulse Resp B/P (MAP) Pulse Ox O2 Delivery O2 Flow Rate FiO2 12/10/17 10:39 96 High Flow N/C 3.00 12/10/17 08:01 96.5 71 20 129/58 (81) 12/09/17 15:23 36 Capillary Refill : Less Than 3 SecondsLess Than 3 Seconds General Appearance: Chronically ill HEENT: Normal ENT Inspection, Pharynx Normal Neck: Normal Inspection, Non Tender, Limited Range of Motion Respiratory: Normal Breath Sounds, No Accessory Muscle Use, No Respiratory Distress, Crackles, Rales Cardiovascular: Regular Rate, Rhythm, No Gallop, Systolic Murmur Gastrointestinal: Normal Bowel Sounds, No Organomegaly, Non Tender, Soft Extremity: Pedal Edema, Other (Wrapped lower legs) Neurologic/Psychiatric: Alert, Oriented x3, Normal Mood/Affect Skin: Ecchymosis Results/Procedures Lab Patient resulted labs reviewed. Imaging: Reviewed Imaging Report Assessment/Plan Assessment and Plan Assess & Plan/Chief Complaint 1. Right lower lobe pneumonia-facility acquired on meropenem-oxygen needs are back to baseline we'll recheck a chest x-ray 2. Exacerbation of COPD secondary to number 1-on by mouth prednisone taper 3. Chronic renal failure-stable4. Neurogenic bladder with indwelling Cervantes catheter with Pseudomonas sensitive to meropenem and VRE. Since the VRE is less than 10 to the fifth and he has a chronic indwelling Cervantes, have chosen not to treat it 4. Debility chronically bedbound with venous stasis ulcers and decubitus ulcers followed by wound care 5. Tobaccoism curtailed 6. Hyperkalemia secondary to chronic renal failure 7. Type II diabetes on insulin 8. Hypertension-will follow Plan for discharge in the morning Clinical Quality Measures DVT/VTE Risk/Contraindication: Risk Factor Score Per Nursin RFS Level Per Nursing on Admit: 4+=Very High MAURY GONSALVES MD Dec 10, 2017 12:20
--- NOTE | 2017-12-10 13:05 | Diagnostic Imaging Report ---
EXAMINATION: Chest radiograph, portable AP view. DATE: 12/10/2017 at 1242 hours. INDICATION: 72-year-old male, pneumonia. Shortness of breath. COMPARISON: 12/06/2017. FINDINGS: Stable overall appearance of the cardiomediastinal silhouette. There is a right-sided cardiac assist device and leads which appear intact. There is nonspecific right mid and lower lung zone airspace consolidation. There are streaky left perihilar opacities. Overall lung aeration appears similar to the comparison exam. There are streaky opacities in the right upper lobe which are also unchanged. IMPRESSION: 1. Unchanged multifocal lung consolidation bilaterally which appears very similar to the comparison exam. Dictated by: Dictated on workstation # [id number]
[2017-12-10 16:29] VITALS: BP 108/53
[2017-12-10] MEDS: SIMvastatin 40 MG (ZOCOR) TAB PO SCH (16:41)
[2017-12-10] MEDS: FLUTICASONE NASAL SPRAY (FLONASE) 16 GM BTL NS SCH (20:59)
[2017-12-11] VITALS: BP 116/52
[2017-12-11] MEDS: GABAPENTIN 100 MG (NEURONTIN) CAP PO SCH ×2 (00:22→08:05)
[2017-12-11] MEDS: HYDROcodone/APAP 10 MG/325 MG (LORTAB) TAB PO SCH ×2 (00:22→08:05)
[2017-12-11] MEDS: RT-ALBUTEROL/IPRATROPIUM 3 ML (DUONEB) VIAL INH SCH ×3 (02:21→10:42)
[2017-12-11] MEDS: inSUlin ASPART (NovoLOG) 1 UNIT/0.01 ML (CHARGE PER UNIT) SC SCH ×2 (05:43→11:11)
[2017-12-11] MEDS: CEFEPIME INJECTION 2,000 MG in NS (IVPB) 100 ML IV SCH (05:55)
[2017-12-11] MEDS: LACTOBACILLUS Acidoph/Bulgar (LACTINEX/FLORANEX) TAB PO SCH ×2 (05:55→11:11)
[2017-12-11] MEDS: CALCITRIOL 0.25 MCG (ROCALTROL) CAPSULE PO SCH (05:59)
[2017-12-11] MEDS: predniSONE 10 MG TAB PO SCH (06:00)
--- NOTE | 2017-12-11 06:28 | Pulmonary Progress Note ---
Subjective Time Seen by Provider: 06:27 Exam Exam Vital Signs Date Time Temp Pulse Resp B/P (MAP) Pulse Ox O2 Delivery O2 Flow Rate FiO2 12/11/17 02:21 92 High Flow N/C 2.00 12/11/17 00:00 97.3 67 21 116/52 (73) 96 Nasal Cannula 3.00 12/10/17 22:38 93 High Flow N/C 2.00 12/10/17 21:15 96 Nasal Cannula 2.00 12/10/17 19:00 High Flow N/C 12/10/17 18:53 90 High Flow N/C 2.00 12/10/17 16:29 97.2 63 18 108/53 (71) 94 Nasal Cannula 2.00 12/10/17 15:07 94 High Flow N/C 2.00 12/10/17 10:39 96 High Flow N/C 3.00 12/10/17 09:00 Nasal Cannula 3.00 12/10/17 08:01 96.5 71 20 129/58 (81) 94 Nasal Cannula 3.00 12/10/17 07:26 High Flow N/C 4.00 12/10/17 07:11 96 High Flow N/C 4.00 I & O 12/11/17 07:00 Intake Total 1235 ml Output Total 1800 ml Balance -565 ml General Appearance: No Apparent Distress, Chronically ill HEENT: Normal ENT Inspection Neck: Non Tender, Limited Range of Motion Respiratory: Normal Breath Sounds, No Accessory Muscle Use, No Respiratory Distress, Crackles, Rales Cardiovascular: Regular Rate, Rhythm, No Gallop, Systolic Murmur Capillary Refill: Less Than 3 Seconds Gastrointestinal: normal bowel sounds, non tender, soft Extremity: Pedal Edema (Wrapped bilaterally lower extremities) Neurologic/Psychiatric: Alert, Oriented x3, No Motor/Sensory Deficits, Normal Mood/Affect Skin: Ecchymosis Lymphatic: No Adenopathy Assessment/Plan Assessment/Plan COPDAE- improved -SVNS, -prednisone taper Atelectasis r/o PNA -improving Pulmonary edema UTI with pseudomonas - Cefepime 232 MARTY DURHAM DO Dec 11, 2017 06:28
[2017-12-11] MEDS: ADVAIR HFA 115/21 MCG INHALER 8 GM IH SCH (07:35)
[2017-12-11 07:56] VITALS: BP 141/59
[2017-12-11] MEDS: PARoxetine 10 MG (PAXIL) TAB PO SCH (08:04)
[2017-12-11] MEDS: ZINC SULFATE 220 MG CAPSULE PO SCH (08:04)
[2017-12-11] MEDS: PANTOPRAZOLE 40 MG (PROTONIX) TAB PO SCH (08:05)
[2017-12-11] MEDS: CYANOCOBALAMIN 500 MCG TAB (VITAMIN B-12) PO SCH (08:05)
[2017-12-11] MEDS: VITAMIN D3 1,000 UNITS (CHOLECALCIFEROL) TABLET PO SCH (08:05)
[2017-12-11] MEDS: TAMSULOSIN 0.4 MG (FLOMAX) CAP PO SCH (08:05)
[2017-12-11] MEDS: glipiZIDE 5 MG (GLUCOTROL) TAB PO SCH (08:05)
[2017-12-11] MEDS: MELOXICAM 7.5 MG (MOBIC) TABLET PO SCH (08:05)
[2017-12-11] MEDS: amLODIPine 5 MG (NORVASC) TAB PO SCH (08:05)
[2017-12-11] MEDS: ASCORBIC ACID (VIT C) 500 MG TABLET PO SCH (08:05)
--- NOTE | 2017-12-11 11:06 | Discharge Summary-Hospitalist ---
Diagnosis/Chief Complaint Date of Admission Dec 06, 2017 at 03:15 Date of Discharge Admission Diagnosis Pneumonia with AECOPD Plan: IV abx Nebs biPAP DNR Discharge Diagnosis Right lower lobe pneumonia. 2.COPD/oxygen dependent. 3.chronic ulcerations bilateral lower extremities (1) Pneumonia involving right lung Status: Acute (2) COPD EXACERBATION, POSSIBLE PNEUMONIA, ACUTE RESPIRATORY DISTRESS Status: Acute (3) Acute respiratory failure with hypoxia and hypercapnia Status: Resolved (4) CKD (chronic kidney disease) stage 4, GFR 15-29 ml/min Status: Chronic (5) Essential (primary) hypertension Status: Chronic (6) Tobacco abuse Status: Chronic (7) Insulin dependent diabetes mellitus Status: Chronic Discharge Summary Discharge Physical Exam Allergies: Coded Allergies: Penicillins (Unverified Allergy, Mild, Hives, 11/18/17) Vitals & I&Os Vital Signs Date Time Temp Pulse Resp B/P (MAP) Pulse Ox O2 Delivery O2 Flow Rate FiO2 12/11/17 10:42 91 Nasal Cannula 2.00 12/11/17 07:56 97.5 85 20 141/59 (86) 12/09/17 15:23 36 General Appearance: Alert, Oriented X3, Cooperative, No Acute Distress Respiratory: Clear to Auscultation, Normal Air Movement Cardiovascular: Regular Rate Abdominal: Normal Bowel Sounds Skin: Other (chronic ulcerations lower extremities) Psych/Mental Status: Mental Status NL Hospital Course The patient had been admitted here from November 18- with sepsis. He returned to his residential and was sent to the emergency room on December 06 with cough shortness of breath and fever. Chest x-ray showed a right lower lobe pneumonia. He was started on treatment for community-acquired pneumonia. He is improved nicely. He is to return to the residential today and improved condition. He is again implored to stop smoking. He reports he would like to have nicotine patches as he was able to quit smoking for a period of time once before through the use of these. 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 O2 is in place. Lungs are surprisingly clear. CV is regular. Extremities show some edema his feet are encased in dressings. Plan is for discharge to the residential. Medications will be as on the discharge sequence. Labs (last 24 hrs) Laboratory Tests 12/10/17 11:11: Glucometer 85 12/10/17 16:36: Glucometer 120H 12/10/17 20:48: Glucometer 213H 12/11/17 05:43: Glucometer 71 12/11/17 10:42: Glucometer 216H Microbiology 12/06/17 Blood Culture - Preliminary, Resulted No growth 12/06/17 Influenza Types A,B Antigen (TIAGO) - Final, Complete 12/06/17 Urine Culture - Final, Complete Pseudomonas aeruginosa Enterococcus faecium Patient resulted labs reviewed. Pending Labs Laboratory Tests 12/11/17 05:43: Glucometer 71 12/11/17 10:42: Glucometer 216 Imaging: Reviewed Imaging Report Discussion & Recommendations Discharge Planning: <30 minutes discharge planning Discharge Home Medications: Active Scripts Active Reported Floranex Tablet (L. Acidophilus/Bulgaricus) 1 Each Tablet 1 Tab PO AC 14 Days 14 DAY SUPPLY START DATE 11-24-17 Melatonin 3 Mg Tablet 3 Mg PO HS PRN Ondansetron Odt (Ondansetron) 4 Mg Tab.rapdis 4 Mg SL Q6H PRN Acetaminophen 325 Mg Tablet 650 Mg PO Q4H PRN TAKES 2 (325 MG) TABLETS Milk of Magnesia (Magnesium Hydroxide) 400 Mg/5 Ml Oral.susp 30 Ml PO DAILY PRN Bisacodyl 10 Mg Supp.rect 10 Mg RC DAILY PRN Combivent Respimat Inhal [place] (Albuterol/Ipratropium) 4 Gm Aero 1 Puff IH QID Gabapentin 100 Mg Capsule 100 Mg PO 0000,0800,1600 Hydrocodon-Acetaminophn 10-325 (Hydrocodone/Acetaminophen) 1 Each Tablet 1 Tab PO 0000,0800,1600 Symbicort 160-4.5 Mcg Inhaler (Budesonide/Formoterol Fumarate) 10.2 Gm Hfa.aer.ad 2 Puff IH BID Simvastatin 40 Mg Tablet 40 Mg PO 1700 Zinc 50 Mg Tablet 50 Mg PO DAILY Vitamin D3 (Cholecalciferol (Vitamin D3)) 2,000 Unit Tablet 2,000 Unit PO DAILY Vitamin C (Ascorbate Calcium) 500 Mg Tablet 500 Mg PO DAILY Vitamin B-12 (Cyanocobalamin (Vitamin B-12)) 1,000 Mcg Tablet.er 1,000 Mcg PO DAILY Calcitriol 0.25 Mcg Capsule 0.25 Mcg PO DAILY Pantoprazole Sodium 40 Mg Tablet.dr 40 Mg PO DAILY Paroxetine HCl 10 Mg Tablet 10 Mg PO DAILY Amlodipine Besylate 5 Mg Tablet 5 Mg PO DAILY HOLD AND NOTIFY PCP FOR BP LESS THAN 90/50 OR PULSE LESS THAN 50. NOTIFY PCP FOR BP OVER 160/110 OR PULSE OVER 100 Meloxicam 7.5 Mg Tablet 7.5 Mg PO DAILY Glipizide 10 Mg Tablet 10 Mg PO DAILY Fluticasone Propionate 16 Gm [place].susp 1 [place] NS HS Tamsulosin HCl 0.4 Mg Cap.er.24h 0.4 Mg PO DAILY Humalog Kwikpen (Insulin Lispro) 100 Unit/1 Ml Insuln.pen SQ ACHS INJECT PER SLIDING SCALE: 151-199 1 UNIT NOTIFY PCP IF <60 200-249 2 UNITS 250-299 3 UNITS 300-349 4 UNITS 350-399 5 UNITS IF GREATER THAN 400 NOTIFY PCP Instructions to patient/family Please see electronic discharge instructions given to patient. Clinical Quality Measures DVT/VTE Risk/Contraindication: Risk Factor Score Per Nursin RFS Level Per Nursing on Admit: 4+=Very High Problem Qualifiers (1) Pneumonia involving right lung: Pneumonia type: due to unspecified organism Lung location: lower lobe of lung Qualified Codes: J18.1 - Lobar pneumonia, unspecified organism JOHN BHARDWAJ MD Dec 11, 2017 11:06
[2017-12-11] MEDS ORDERED: NICO-588 TD (11:14)
[2017-12-11] MEDS ORDERED: CEFD300C3 PO (11:17)
--- NOTE | 2017-12-11 11:26 | Discharge Inst-Skilled Nursing ---
Discharge Inst-Skilled NF Patient Instructions Goal: Improvement performance Patient Instructions: No smoking Use nicotine patches daily Complete antibiotic therapy At present give albuterol nebulizer treatment every 4 hours including sleeping hours Consult/Follow Up/Orders Follow Up Appt.: Wound care and urology Skilled NF Admit to: [facility] Certification (SNF) I certify that SNF services are required to be given on an inpatient basis because of the above named patient's need for senior living care on a continuing basis for the conditions(s) for which he/she was receiving inpatient hospital services prior to his/her transfer to the SNF[facility] Facility Order: Nursing Services, Physical Therapy-Evaluate & Treat, Wound Care-Eval/Treat, Other (respiratory therapy ) Discharge Diet: ADA Diet Daily Activity as Tolerated: Yes New & Resume Previous Orders Kimo Bhardwaj Dec 11, 2017 11:19 KIMO BHARDWAJ MD Dec 11, 2017 11:25
== END 2017-12-11 14:00 | DRG 189 ==
LOC: EDUNIT# 02:18 → ER 02:20 → 4TH 03:15
PROVIDERS: ADMIT Internal Medicine; ATTEND Internal Medicine
DX: J96.01 Acute respiratory failure with hypoxia (principal); J96.02 Acute respiratory failure with hypercapnia; J44.1 Chronic obstructive pulmonary disease with (acute) exacerbation; J98.11 Atelectasis; N39.0 Urinary tract infection, site not specified; B96.5 Pseudomonas (aeruginosa) (mallei) (pseudomallei) as the cause of diseases classified elsewhere; J18.9 Pneumonia, unspecified organism; J44.0 Chronic obstructive pulmonary disease with (acute) lower respiratory infection; Z66 Do not resuscitate; I12.9 Hypertensive chronic kidney disease with stage 1 through stage 4 chronic kidney disease, or unspecified chronic kidney disease; N18.4 Chronic kidney disease, stage 4 (severe); F17.210 Nicotine dependence, cigarettes, uncomplicated; I83.008 Varicose veins of unspecified lower extremity with ulcer other part of lower leg; E87.5 Hyperkalemia; E11.42 Type 2 diabetes mellitus with diabetic polyneuropathy; L89.899 Pressure ulcer of other site, unspecified stage; E78.5 Hyperlipidemia, unspecified; K59.09 Other constipation; K21.9 Gastro-esophageal reflux disease without esophagitis; G83.9 Paralytic syndrome, unspecified; F32.9 Major depressive disorder, single episode, unspecified; R53.81 Other malaise; N31.9 Neuromuscular dysfunction of bladder, unspecified; Z79.4 Long term (current) use of insulin
CPT/HCPCS: 36415; 36600; 71045; 80053; 81000; 82805; 82962; 83605; 84484; 85007; 85025; 85027; 85610; 85730; 87040; 87077; 87088; 87186; 87804; 93005; 94640; 94660; 94664; 94760; 96361; 96365; 96375